=== PATIENT | female | born 1965 | race Caucasian/White ===

== ENCOUNTER → 2019-11-26 10:35 | Outpatient (BNVA) | payer MEDICARE, SELFPAY | PROVIDERS: Family Provider Family Medicine; PCP Nurse Practitioner; Visit Provider Nurse Practitioner | DX: E11.42 Type 2 diabetes mellitus with diabetic polyneuropathy (principal); Z23 Encounter for immunization; Z79.4 Long term (current) use of insulin; I25.10 Atherosclerotic heart disease of native coronary artery without angina pectoris; Z76.89 Persons encountering health services in other specified circumstances; K21.9 Gastro-esophageal reflux disease without esophagitis | CPT/HCPCS: 80061; 82044; 83036; 85025 ==

== ENCOUNTER → 2020-04-14 10:28 | Outpatient (BNVA) | payer MEDICARE, SELFPAY | PROVIDERS: Family Provider Family Medicine; PCP Nurse Practitioner; Visit Provider Family Medicine | DX: E11.42 Type 2 diabetes mellitus with diabetic polyneuropathy (principal); I25.10 Atherosclerotic heart disease of native coronary artery without angina pectoris; M14.672 Charcot's joint, left ankle and foot; J44.9 Chronic obstructive pulmonary disease, unspecified; G47.33 Obstructive sleep apnea (adult) (pediatric); I10 Essential (primary) hypertension; Z68.35 Body mass index [BMI] 35.0-35.9, adult; F17.211 Nicotine dependence, cigarettes, in remission; Z79.4 Long term (current) use of insulin | CPT/HCPCS: 83036; 84443 ==

== ENCOUNTER → 2020-06-29 11:58 | Outpatient (BNVA) | payer MEDICARE, SELFPAY | PROVIDERS: Family Provider Family Medicine; PCP Family Medicine; Visit Provider Family Medicine Adult Medicine | DX: E11.42 Type 2 diabetes mellitus with diabetic polyneuropathy (principal); N18.3 Chronic kidney disease, stage 3 (moderate); I10 Essential (primary) hypertension; E78.5 Hyperlipidemia, unspecified; R80.9 Proteinuria, unspecified; I25.10 Atherosclerotic heart disease of native coronary artery without angina pectoris; E66.9 Obesity, unspecified; Z79.4 Long term (current) use of insulin | CPT/HCPCS: 80053; 80061; 83036; 85025 ==

== ENCOUNTER 2020-08-10 17:06 | Emergency (ER) | payer MEDICARE, SELFPAY ==
[2020-08-10 17:21] VITALS: BP 174/100; PULSE 75; RESP 20; TEMP 36.8; O2SAT 100; BMI 31.8
--- NOTE | 2020-08-10 18:58 | ECG_ITS ---
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 Measurements Intervals [place] Rate: 76 P: 14 MI: 156 QRS: -28 QRSD: 86 T: 46 QT: 394 QTc: 445 Interpretive Statements SINUS RHYTHM BORDERLINE LEFT AXIS DEVIATION [QRS AXIS < -20] LOW QRS VOLTAGE IN PRECORDIAL LEADS [QRS DEFLECTION < 1.0 mV IN CHEST LEADS] PATTERN CONSISTENT WITH PULMONARY DISEASE MODERATE VOLTAGE CRITERIA FOR LVH, CONSIDER NORMAL VARIANT [MEETS CRITERIA IN ONE OF: R(aVL), S(V1), R(V5), R(V5/V6)+S(V1)] Compared to ECG 09/29/2017 00:35:48 Low QRS voltage now present Myocardial infarct finding no longer present Electronically Signed On 08-10-2020 19:28:27 HEMP FIBER TAKER OFF by Graham Farooq M.D. [id number] maldonado
--- NOTE | 2020-08-10 21:04 | PC.NURSE ---
Attempt at 18:50 to call pt to room, pt no longer in the waiting room. Attempt now to call pt, pt does not respond. No pt noted in parking lot or bathroom at this time.
== END 2020-08-10 21:06 ==
LOC: ER 17:12
PROVIDERS: Emergency Provider Family Medicine; PCP Family Medicine
DX: Z53.21 Procedure and treatment not carried out due to patient leaving prior to being seen by health care provider (principal)
CPT/HCPCS: 93005; 99281

== ENCOUNTER 2021-03-08 09:34 | Emergency (ER) | payer MEDICARE, SELFPAY ==
[2021-03-08 09:43] VITALS: BP 175/95; PULSE 72; RESP 18; TEMP 36.6; O2SAT 94; BMI 33.5
--- NOTE | 2021-03-08 09:46 | CT_ITS ---
WS: [id number] CT HEAD NONCONTRAST HISTORY: fall; struck head; unknown LOC TECHNIQUE: Contiguous axial imaging performed through the brain in 2.5 mm imaging. Bone and soft tiss ue windows. Sagittal and coronal reformats reviewed. All CT scans at [facility] use at le ast one of these dose optimization techniques: automated exposure control; mA and/or kV adjustment pe r patient size (includes targeted exams where dose is matched to clinical indication); or iterative r econstruction. DLP: 913.96 mGy.cm COMPARISON: 01/06/2017 No acute intracranial hemorrhage, midline shift or mass effect. Mild atrophy and mild chronic microvascular ischemic disease. Prior lacunar infarct in the LEFT basal ganglia. Ventricles: Normal size with no hydrocephalus. Paranasal sinuses: As visualized are clear. Mastoid air cells: Well pneumatized. Calvarium and scalp: Skull is intact with no soft tissue edema or swelling. CT/CT head wo con* [id number] IMPRESSION: 1. No acute intracranial hemorrhage or edema. 2. Stable noncontrast head CT since 01/06/2017.
--- NOTE | 2021-03-08 09:46 | W.ED.FALL ---
HPI - Fall General: Chief Complaint: Fall Stated Complaint: fall, head injury Time Seen by Provider: 03/08/21 09:37 Source: patient Mode of arrival: ambulatory Limitations: no limitations History of Present Illness: HPI Narrative: Patient is a 55-year-old female who presents to ED today for evaluation following a fall. Patient states just prior to arrival while in her bathroom she accidentally slipped and fell on a wet surface. She states she struck the posterior aspect of her scalp. She reports probable brief LOC stating she fell and then immediately woke up . She does complain of neck pain. C-collar placed immediately after my examination. She is alert and oriented x3. She has no other physical complaints or injuries at this time. Patient is on Plavix. MD complaint: fall Onset (ago): hour(s) Fall from: standing Fall witnessed: no Place fall occurred: home Loss of consciousness: Yes Length of LOC: second(s) Prolonged down time: no Symptoms prior to fall: none Context: tripped/slipped Location of injury: head Associated symptoms-after fall: Reports no associated symptoms, headache(s) and neck pain; Denies abdominal pain, chest pain, confusion, difficulty walking or vertigo Review of Systems Eyes: Denies: change in vision, blurry vision, photophobia, floaters or seeing flashes Card: Denies: chest pain Resp: Denies: dyspnea GI: Denies: abdominal pain, nausea or vomiting Musc: Reports: neck pain; Denies: back pain, extremity pain or joint pain Skin/Breast: Reports: other (no lacerations, abrasions, bruising) Neuro: Reports: headache(s); Denies: numbness in extremities, weakness in extremities, sensory changes, lack of coordination, difficulty walking, frequent falls, dizziness, vertigo, confusion, Slurred speech present, difficulty communicating thoughts or seizure-like activity [facility] ED PFSH: Medical History ASHD (arteriosclerotic heart disease) Stents placed Charcot's joint of left foot CKD (chronic kidney disease) stage 3, GFR 30-59 ml/min COPD (chronic obstructive pulmonary disease) GERD (gastroesophageal reflux disease) Hammer toes, bilateral Hyperlipidemia Hypertension Hypertension with albuminuria Obesity (BMI 35.0-39.9 without comorbidity) Onychodystrophy Onychomycosis PAD (peripheral artery disease) 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 Surgical History H/O tubal ligation Hx of cholecystectomy Hx of heart artery stent Family History Mother Diabetes Heart disease Denies family history of CAD (coronary artery disease) Clotting disorder Dementia Hyperlipidemia Psychiatric illness Chronic kidney disease (CKD) Suicide Anesthesia complication Bleeding disorder Family history of premature coronary artery disease Lung disease Cancer Hypertension Stroke Social History Smoking and tobacco status: former smoker Quit status (tobacco): has quit using tobacco Year quit tobacco: 9 years ago Alcohol intake: never Physical Exam Const: COMMON NORMALS: no acute distress, patient oriented x3, no limitations and alert NUTRITIONAL APPEARANCE: overweight ORIENTATION/CONSCIOUSNESS: Yes awake, Yes oriented to person, Yes oriented to place and Yes oriented to time HENMT: COMMON NORMALS: normocephalic, atraumatic, hearing grossly normal bilaterally, external ears normal, EAC's normal and TM's normal bilaterally HEAD & SCALP: normal to inspection, normocephalic and atraumatic HEAD IMAGES: 1. TTP; no hematoma, abrasions, or lacerations FACE & SINUS: normal facial exam EXTERNAL EAR: Yes external ears normal EXTERNAL AUDITORY CANAL: EAC's normal TYMPANIC MEMBRANE: TM's normal bilaterally Eye: COMMON NORMALS: Equal, round and reactive pupils present and EOMs intact bilaterally GENERAL EYE: appearance normal, both eyes and all related structures PUPIL: Yes Equal, round and reactive pupils present Neck/C-Spine: CERVICAL SPINE: Yes Cervical spine tenderness (mid c spine), No step off deformity, Yes Paracervical muscle tenderness right and No Paracervical spasm Resp: COMMON NORMALS: normal respiratory effort Back/Pelvis: COMMON NORMALS: thoracic and lumbar spine normal to inspection, no thoracic nor lumbar tenderness and thoraco-lumbar ROM normal Extremity: COMMON NORMALS: normal to inspection and full ROM GENERAL: Yes normal exam except as noted Neuro: KENDRICK COMA SCALE: document GCS findings Kendrick coma scale eye opening: Spontaneous Rainier coma scale verbal response: Orientated Kendrick coma scale motor response: Obey commands Kendrick coma scale total score: 15 COMMON NORMALS: patient oriented x3, CN's II-XII intact bilaterally, moves all extremities, no focal motor deficits and no sensory deficits noted SENSORIUM/ORIENTATION: Yes alert, Yes oriented to person, Yes oriented to place and Yes oriented to time Skin: COMMON NORMALS: no rashes or lesions noted GENERAL SKIN EXAM: no rashes or lesions noted TRAUMA: no lacerations or abrasions Course Vital Signs: Vital signs: Vital Signs Temperature 97.9 F 03/08/21 09:43 Pulse Rate 72 03/08/21 09:43 Respiratory Rate 18 03/08/21 09:43 Blood Pressure 175/95 03/08/21 09:43 Pulse Oximetry 94 03/08/21 09:43 MDM - Fall MDM Narrative: Medical decision making narrative: Head and cervical spine CTs normal. She is stable for DC at this time. Imaging Data^: CT Head: Radiologist's impression: [place] [address] CT Scan Report Signed Patient: Radha Henry Unit #: [id number] : 1965 Age/Sex: 55 / F ADM Date: 03/08/21 Loc: ER Room/Bed: Attending Dr: Ordering Provider/Ordering MD: Bridgette Hernandez Date of Service: 03/08/21 Procedure(s): CT head wo con* [id number] Accession Number(s): [id number] Report Number: [id number] WS: [id number] CT HEAD NONCONTRAST HISTORY: fall; struck head; unknown LOC TECHNIQUE: Contiguous axial imaging performed through the brain in 2.5 mm imaging. Bone and soft tissue windows. Sagittal and coronal reformats reviewed. All CT scans at [facility] use at least one of these dose optimization techniques: automated exposure control; mA and/or kV adjustment per patient size (includes targeted exams where dose is matched to clinical indication); or iterative reconstruction. DLP: 913.96 mGy.cm COMPARISON: 01/06/2017 No acute intracranial hemorrhage, midline shift or mass effect. Mild atrophy and mild chronic microvascular ischemic disease. Prior lacunar infarct in the LEFT basal ganglia. Ventricles: Normal size with no hydrocephalus. Paranasal sinuses: As visualized are clear. Mastoid air cells: Well pneumatized. Calvarium and scalp: Skull is intact with no soft tissue edema or swelling. CT/CT head wo con* [id number] IMPRESSION: 1. No acute intracranial hemorrhage or edema. 2. Stable noncontrast head CT since 01/06/2017. Dictated By: Camila Berman DO Signed By: Camila Berman DO Signed Date/Time: 03/08/21 1040 DD/ 1037 CT cervical : Radiologist's impression: [address] [place] [address] CT Scan Report Signed Patient: Radha Henry Unit #: [id number] : 1965 Age/Sex: 55 / F ADM Date: 03/08/21 Loc: ER Room/Bed: Attending Dr: Ordering Provider/Ordering MD: Bridgette Hernandez Date of Service: 03/08/21 Procedure(s): CT cervical spin wo con* [id number] Accession Number(s): [id number] Report Number: [id number] WS: [id number] CT CERVICAL SPINE HISTORY: fall, struck head, neck pain TECHNIQUE: Contiguous 2.5 mm axial imaging performed through the entire cervical spine. Sagittal and coronal reformats also performed. All CT scans at [facility] use at least one of these dose optimization techniques: automated exposure control; mA and/or kV adjustment per patient size (includes targeted exams where dose is matched to clinical indication); or iterative reconstruction. DLP: 697.12 mGy.cm COMPARISON: None available. Normal cervical alignment. Craniocervical junction, atlantodental interval and C1-C2 alignment is normal. Scattered calcified plaque in the vertebral arteries and intracranial carotid arteries. C2-C3: Normal. C3-C4: Normal. C4-C5: Normal. C5-C6: Normal. C6-C7: Normal. C7-T1: Normal. Soft tissues are normal. Lung apices are clear. CT/CT cervical spin wo con* [id number] IMPRESSION: No cervical spine fracture. Dictated By: Camila Berman DO Signed By: Camila Berman DO Signed Date/Time: 03/08/21 1042 DD/ 1040 Discharge Plan Discharge Patient Disposition: Home Clinical Impression: Minor closed head injury Fall from slipping Qualifiers: Encounter type: initial encounter Qualified Code(s): W01.0XXA - Fall on same level from slipping, tripping and stumbling without subsequent striking against object, initial encounter Condition: Stable Prescriptions: No Action albuterol sulfate [ProAir HFA] 90 mcg/actuation HFA aerosol inhaler 1 inh INHALATION QID PRN (Reason: Shortness Of Breath) RF: 0 (DME) Diabetic Shoes Qty: 1 RF: 0 (DME) 3 inserts for diabetic shoes See Rx Instructions .Route .MEDSUPPLY Qty: 1 RF: 0 clopidogrel 75 mg tablet 75 mg PO DAILY 30 Days Qty: 30 RF: 1 (DME) cpap mask and tubing See Rx Instructions .Route .MEDSUPPLY Qty: 1 RF: 0 (DME) glucometer See Rx Instructions .Route .MEDSUPPLY Qty: 1 RF: 0 aspirin 81 mg tablet,delayed release (DR/EC) 81 mg PO DAILY Qty: 90 RF: 3 atorvastatin 10 mg tablet 10 mg PO DAILY Qty: 90 RF: 3 Levemir FlexTouch U-100 Insuln 100 unit/mL (3 mL) insulin pen 50 unit SUBCUT DAILY 30 Days Qty: 15 RF: 3 losartan-hydrochlorothiazide 50-12.5 mg tablet 1 tab PO DAILY Qty: 30 RF: 1 cetirizine 10 mg capsule 10 mg PO DAILY Qty: 30 RF: 5 pantoprazole 20 mg tablet,delayed release (DR/EC) 20 mg PO DAILY 30 Days Qty: 30 RF: 5 Trulicity 0.75 mg/0.5 mL pen injector 0.75 mg SUBCUT Q7D RF: 0 Discharge Orders: Discharge ED (Routine); Ordered 03/08/21 Ordered By: Bridgette Hernandez Referrals: Cameron Frost MD [Primary Care Provider] - Patient Instructions: Minor Head Injury (ED) Coding Level of Care Code ED Supervisor [employer] for [employer] Fwd Exam Comprehensive
--- NOTE | 2021-03-08 09:51 | CT_ITS ---
WS: [id number] CT CERVICAL SPINE HISTORY: fall, struck head, neck pain TECHNIQUE: Contiguous 2.5 mm axial imaging performed through the entire cervical spine. Sagittal and coronal reformats also performed. All CT scans at [facility] use at least one of these do se optimization techniques: automated exposure control; mA and/or kV adjustment per patient size (inc ludes targeted exams where dose is matched to clinical indication); or iterative reconstruction. DLP: 697.12 mGy.cm COMPARISON: None available. Normal cervical alignment. Craniocervical junction, atlantodental interval and C1-C2 alignment is nor mal. Scattered calcified plaque in the vertebral arteries and intracranial carotid arteries. C2-C3: Normal. C3-C4: Normal. C4-C5: Normal. C5-C6: Normal. C6-C7: Normal. C7-T1: Normal. Soft tissues are normal. Lung apices are clear. CT/CT cervical spin wo con* [id number] IMPRESSION: No cervical spine fracture.
== END 2021-03-08 11:20 | disposition home or self-care (01) ==
PROVIDERS: Emergency Provider Physician Assistant; PCP Family Medicine Adult Medicine
DX: S09.8XXA Other specified injuries of head, initial encounter (principal); Z79.02 Long term (current) use of antithrombotics/antiplatelets; Z79.82 Long term (current) use of aspirin; Z79.4 Long term (current) use of insulin; I12.9 Hypertensive chronic kidney disease with stage 1 through stage 4 chronic kidney disease, or unspecified chronic kidney disease; E11.22 Type 2 diabetes mellitus with diabetic chronic kidney disease; N18.30 Chronic kidney disease, stage 3 unspecified; J44.9 Chronic obstructive pulmonary disease, unspecified; E78.5 Hyperlipidemia, unspecified; Z87.891 Personal history of nicotine dependence; W01.0XXA Fall on same level from slipping, tripping and stumbling without subsequent striking against object, initial encounter
CPT/HCPCS: 70450; 72125; 99282

== ENCOUNTER 2021-04-28 17:53 | Emergency (ER) | payer MEDICARE, SELFPAY ==
--- NOTE | 2021-04-28 18:09 | XRR_ITS ---
PROCEDURE INFORMATION: Exam: XR Chest Exam date and time: 04/28/2021 6:09 PM Age: 55 years old Clinical indication: Fever and shortness of breath; Prior surgery; Surgery type: Stents; Additional info: Fever, SOB, central chest pain TECHNIQUE: Imaging protocol: XR of the chest. Views: 1 view. COMPARISON: CR Chest 1 [place] [id number] 01/29/2019 10:46 PM FINDINGS: Lungs: Chronic interstitial scarring in both lungs. No consolidation. Focal airspace opacity in the central right lung appears new. Pleural spaces: Unremarkable. No pleural effusion. No pneumothorax. Heart/Mediastinum: Unremarkable. No cardiomegaly. Bones/joints: Unremarkable. XR/XR chest 1V portable [id number] IMPRESSION: 1. New focal airspace opacity in the right mid lung is most likely pneumonia. Radiographic follow-up to document resolution recommended. 2. Chronic interstitial scarring.
[2021-04-28 18:17] VITALS: BP 139/85; PULSE 79; RESP 18; TEMP 38.3; O2SAT 94
[2021-04-28 21:55] VITALS: BP 174/83; PULSE 87; RESP 22; O2SAT 98
[2021-04-28 22:03] VITALS: PULSE 76; RESP 20; O2SAT 95
--- NOTE | 2021-04-28 22:06 | ECG_ITS ---
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
--- NOTE | 2021-04-28 22:09 | ED_ITS ---
HPI - General Adult General: Chief complaint: General Medical Stated complaint: COVID SYMPTOMATIC:SOB,FEVER,BODY ACHES (-) TUES Time Seen by Provider: 04/28/21 21:58 Source: patient Mode of arrival: ambulatory Limitations: no limitations History of Present Illness: HPI narrative: 55-year-old female states that over the last 2 days she been having fever along with cough and chest pain. States she is also been having shortness of breath. States that she tested negative for Covid 2 days ago. She denies any worsening improving factors. Patient's pulse ox is 95% here on room air. States her chest pain is sharp in nature. Associated symptoms: Reports chest pain and dyspnea; Deny headache(s), nausea, rash or vomiting Review of Systems Const: Reports: fever(s), chills and body aches Eyes: Denies: blurry vision or eye discomfort ENMT: Denies: throat pain or dental pain Card: Reports: chest pain Resp: Reports: dyspnea and non-productive cough GI: Denies: abdominal pain, nausea, vomiting or diarrhea : Denies: dysuria Musc: Denies: neck pain or back pain Skin/Breast: Denies: rash Neuro: Denies: headache(s) Psych: Denies: depression J Luis/Lymph: Denies: easy bruising All/Imm: Denies: urticaria PFSH ED PFSH: Medical History ASHD (arteriosclerotic heart disease) Stents placed Charcot's joint of left foot CKD (chronic kidney disease) stage 3, GFR 30-59 ml/min COPD (chronic obstructive pulmonary disease) GERD (gastroesophageal reflux disease) Hammer toes, bilateral Hyperlipidemia Hypertension Hypertension with albuminuria Obesity (BMI 35.0-39.9 without comorbidity) Onychodystrophy Onychomycosis PAD (peripheral artery disease) 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 Surgical History H/O tubal ligation Hx of cholecystectomy Hx of heart artery stent Family History Mother Diabetes Heart disease Denies family history of CAD (coronary artery disease) Clotting disorder Dementia Hyperlipidemia Psychiatric illness Chronic kidney disease (CKD) Suicide Anesthesia complication Bleeding disorder Family history of premature coronary artery disease Lung disease Cancer Hypertension Stroke Social History Smoking and tobacco status: former smoker Quit status (tobacco): has quit using tobacco Year quit tobacco: 9 years ago Alcohol intake: never Physical Exam Const: COMMON NORMALS: no acute distress, patient oriented x3 and healthy appearing HENMT: COMMON NORMALS: normocephalic and atraumatic HEAD & SCALP: normocephalic and atraumatic Eye: COMMON NORMALS: Equal, round and reactive pupils present and EOMs intact bilaterally PUPIL: Yes Equal, round and reactive pupils present Neck/C-Spine: COMMON NORMALS: full ROM and supple Chest: COMMONS NORMALS: normal inspection of the chest and normal palpation of entire chest wall Resp: COMMON NORMALS: normal respiratory effort, No retractions, No use of accessory muscles and clear to auscultation bilaterally AUSCULTATION: clear to auscultation bilaterally Cardio: COMMON NORMALS: regular rate, regular rhythm and No murmurs present (Cardio) RATE: regular rate RHYTHM: regular rhythm GI: COMMON NORMALS: Normal to inspection, nondistended, normoactive bowel sounds present, Soft to palpation, non-tender and no masses PALPATION: Yes Soft to palpation Extremity: COMMON NORMALS: normal to inspection and full ROM Neuro: COMMON NORMALS: patient oriented x3, moves all extremities and no focal motor deficits Psych: COMMON NORMALS: mental status grossly normal, Normal thought process present and cooperative THOUGHT PROCESS: Normal thought process present Skin: COMMON NORMALS: no rashes or lesions noted and no wounds GENERAL SKIN EXAM: no rashes or lesions noted Course Vital Signs: Vital signs: Vital Signs Temperature 98.2 F 04/29/21 01:38 Pulse Rate 58 L 04/29/21 01:38 Respiratory Rate 18 04/29/21 01:38 Blood Pressure 144/62 04/29/21 01:38 Pulse Oximetry 95 04/29/21 01:38 MDM - General Adult MDM Narrative: Medical decision making narrative: Patient presents with cough fever and some shortness of breath. She has been in no distress here not requiring any oxygen. X-ray did show a right upper lobe pneumonia. I feel she is stable for treatment at home at this time. We will start her on doxycycline. She is to follow-up with PCP in 3 to 5 days and return to ER if she has any worsening. She understands and agrees to this plan. Lab Data: Labs: Lab Results 04/28/21 04/28/21 04/28/21 Range/Units 21:58 22:29 22:29 WBC 6.7 (4.0-10.0) 10^3/ uL RBC 4.33 (4.1-5.3) 10^6/u L Hgb 12.6 (11.5-15.3) g/dL Hct 39.4 (37.0-47.0) % MCV 91.0 (81-99) fL MCH 29.1 (28.0-34.0) pg MCHC 32.0 (30.0-36.0) g/dL RDW 12.4 (12.1-15.1) % Plt Count 169 (130-400) 10^3/c mm MPV 11.3 H (7.4-10.4) fL Neut % (Auto) 63.4 % Lymph % (Auto) 22.3 % Pershing % (Auto) 13.1 % Eos % (Auto) 0.4 % Baso % (Auto) 0.4 % Neut # (Auto) 4.26 (1.8-7.7) 10^3/u L Lymph # (Auto) 1.5 (0.8-4.8) 10^3/u L Pershing # (Auto) 0.9 (0.2-0.9) 10^3/u L Eos # (Auto) 0.0 (0.0-0.8) 10^3/u L Baso # (Auto) 0.0 (0.0-0.1) 10^3/u L Nucleated RBC % (a uto) 0 % Nucleated RBCs # 0.0 /100WBC D-Dimer 1.31 H (0-0.59) ug/mIFE U Sodium (136-145) mmol/L Potassium (3.5-5.1) mmol/L Chloride (98-107) mmol/L Carbon Dioxide (22-29) mmol/L Anion Gap (5-19) BUN (6-20) mg/dL Creatinine (0.5-0.9) mg/dL GFR Calculation (90-130) mL/min Glucose (65-115) mg/dL Calculated Osmolal ity (285-295) mOsm/k g Calcium (8.5-10.5) mg/dL Total Bilirubin (0.15-1.2) mg/dL AST (0-32) U/L ALT (0-33) U/L Alkaline Phosphata se (35-105) IU/L Troponin T Baselin e (0-10) ng/L Troponin T 120 Min pala (0-10) ng/L Delta Troponin T (0-10) ABS# NT-Pro-B Natriuret Pep (0-125) pg/mL Total Protein (6.6-8.7) g/dL Albumin (3.5-5.2) g/dL Globulin (1.3-4.6) g/dL SARS-CoV-2 Ag (Rap id) Negative (Negative) 04/28/21 04/28/21 04/29/21 Range/Units 22:29 22:29 00:30 WBC (4.0-10.0) 10^3/ uL RBC (4.1-5.3) 10^6/u L Hgb (11.5-15.3) g/dL Hct (37.0-47.0) % MCV (81-99) fL MCH (28.0-34.0) pg MCHC (30.0-36.0) g/dL RDW (12.1-15.1) % Plt Count (130-400) 10^3/c mm MPV (7.4-10.4) fL Neut % (Auto) % Lymph % (Auto) % Pershing % (Auto) % Eos % (Auto) % Baso % (Auto) % Neut # (Auto) (1.8-7.7) 10^3/u L Lymph # (Auto) (0.8-4.8) 10^3/u L Pershing # (Auto) (0.2-0.9) 10^3/u L Eos # (Auto) (0.0-0.8) 10^3/u L Baso # (Auto) (0.0-0.1) 10^3/u L Nucleated RBC % (a uto) % Nucleated RBCs # /100WBC D-Dimer (0-0.59) ug/mIFE U Sodium 130 L (136-145) mmol/L Potassium 4.7 (3.5-5.1) mmol/L Chloride 95 L (98-107) mmol/L Carbon Dioxide 23 (22-29) mmol/L Anion Gap 16.7 (5-19) BUN 18 (6-20) mg/dL Creatinine 0.9 (0.5-0.9) mg/dL GFR Calculation 65.0 L (90-130) mL/min Glucose 277 H (65-115) mg/dL Calculated Osmolal ity 282 L (285-295) mOsm/k g Calcium 8.0 L (8.5-10.5) mg/dL Total Bilirubin 0.4 (0.15-1.2) mg/dL AST 19 (0-32) U/L ALT 16 (0-33) U/L Alkaline Phosphata se 91 (35-105) IU/L Troponin T Baselin e 76 H (0-10) ng/L Troponin T 120 Min pala 66.90 H (0-10) ng/L Delta Troponin T -9.10 L (0-10) ABS# NT-Pro-B Natriuret Pep 6474 H (0-125) pg/mL Total Protein 6.5 L (6.6-8.7) g/dL Albumin 3.6 (3.5-5.2) g/dL Globulin 2.9 (1.3-4.6) g/dL SARS-CoV-2 Ag (Rap id) (Negative) Imaging Data^: CXR: Attestation: I personally reviewed and interpreted this imaging study as follows: Radiologist's impression: [address] [address] [address] Scan Report Signed Patient: Radha Henry Unit #: [id number] : 1965 Age/Sex: 55 / F ADM Date: 04/28/21 Loc: ER Room/Bed: Attending Dr: Ordering Provider/Ordering MD: Kimmie Sahu MD Date of Service: 04/28/21 Procedure(s): CT angio chest PE protcl [id number] Accession Number(s): [id number] Report Number: [id number] PROCEDURE INFORMATION: Exam: CTA Chest With Contrast Exam date and time: 04/28/2021 11:01 PM Age: 55 years old Clinical indication: Abnormal findings; Abnormal diagnostic tests; Elevated d-dimer; Shortness of breath; Prior surgery; Surgery type: Cardiac stents. Gb. ; Patient HX: SOB elevated ddimer TECHNIQUE: Imaging protocol: Computed tomographic angiography of the chest with contrast. 3D rendering (Not supervised by radiologist): MIP and/or 3D reconstructed images were created by the technologist. Radiation optimization: All CT scans at this facility use at least one of these dose optimization techniques: automated exposure control; mA and/or kV adjustment per patient size (includes targeted exams where dose is matched to clinical indication); or iterative reconstruction. Contrast material: OMNI 350; Contrast volume: 95 ml; Contrast route: INTRAVENOUS (IV); COMPARISON: CTA Chest-Pulmonary Emb [id number] 07/02/2018 2:21 AM RADIATION DOSE METRICS: Total DLP (mGy-cm): 545.51 FINDINGS: Pulmonary arteries: Normal. No pulmonary emboli. Aorta: Unremarkable. No aortic aneurysm. No aortic dissection. Lungs: 3.5 cm focal airspace consolidation in the posterior right upper lobe. Diffuse interstitial fibrosis with honeycombing in both lungs. Pleural spaces: Unremarkable. No pneumothorax. No pleural effusion. Heart: Coronary artery calcifications. Mild cardiomegaly. Mediastinal space: Hiatal hernia. Lymph nodes: Prominent mediastinal and hilar lymph nodes are most likely reactive. Gallbladder and bile ducts: Cholecystectomy. Bones/joints: Unremarkable. No acute fracture. Soft tissues: Unremarkable. CT/CT angio chest PE protcl [id number] IMPRESSION: 1. No evidence for pulmonary embolus. 2. Focal airspace opacity in the right upper lobe most likely represents pneumonia. Radiation Dose CTDIVOL = (mGy): DLP = 545.51 (mGy-cm) Dictated By: Jaspal Waters Signed By: Jaspal Waters Signed Date/Time: 04/28/212347 DD/ 45 EKG Data^: EKG 1: Attestation: I personally reviewed and interpreted this EKG as follows: EKG interpretation date: 04/28/21 EKG interpretation time: 22:48 Interpretation: nsr hr [address] or t wave abnormalities qrs 89 qtc 404 Computer generated interpretation: Chest X-Ray 04/28/21 18:09 IMPRESSION: 1. New focal airspace opacity in the right mid lung is most likely pneumonia. Radiographic follow-up to document resolution recommended. 2. Chronic interstitial scarring. Chest CTA 04/28/21 23:01 IMPRESSION: 1. No evidence for pulmonary embolus. 2. Focal airspace opacity in the right upper lobe most likely represents pneumonia. Radiation Dose CTDIVOL = (mGy): DLP = 545.51 (mGy-cm) Discharge Plan Discharge Patient Disposition: Home Clinical Impression: Pneumonia Qualifiers: Pneumonia type: due to unspecified organism Laterality: right Lung location: upper lobe of lung Qualified Code(s): J18.9 - Pneumonia, unspecified organism Condition: Stable Prescriptions: New doxycycline hyclate 100 mg tablet 100 mg PO BID 7 Days Qty: 14 RF: 0 No Action albuterol sulfate [ProAir HFA] 90 mcg/actuation HFA aerosol inhaler 1 inh INHALATION QID PRN (Reason: Shortness Of Breath) RF: 0 (DME) Diabetic Shoes Qty: 1 RF: 0 (DME) 3 inserts for diabetic shoes See Rx Instructions .Route .MEDSUPPLY Qty: 1 RF: 0 clopidogrel 75 mg tablet 75 mg PO DAILY 30 Days Qty: 30 RF: 1 (DME) cpap mask and tubing See Rx Instructions .Route .MEDSUPPLY Qty: 1 RF: 0 (DME) glucometer See Rx Instructions .Route .MEDSUPPLY Qty: 1 RF: 0 aspirin 81 mg tablet,delayed release (DR/EC) 81 mg PO DAILY Qty: 90 RF: 3 atorvastatin 10 mg tablet 10 mg PO DAILY Qty: 90 RF: 3 Levemir FlexTouch U-100 Insuln 100 unit/mL (3 mL) insulin pen 50 unit SUBCUT DAILY 30 Days Qty: 15 RF: 3 cetirizine 10 mg capsule 10 mg PO DAILY Qty: 30 RF: 5 pantoprazole 20 mg tablet,delayed release (DR/EC) 20 mg PO DAILY 30 Days Qty: 30 RF: 5 losartan-hydrochlorothiazide 50-12.5 mg tablet 1 tab PO DAILY Qty: 30 RF: 0 Trulicity 0.75 mg/0.5 mL pen injector 0.75 mg SUBCUT Q7D RF: 0 Discharge Orders: Discharge ED (Routine); Ordered 04/29/21 Ordered By: Kimmie Sahu Referrals: Cameron Frost MD [Primary Care Provider] - 1-3 days Discharge Diet: Advance as tolerated Discharge Activity: Resume usual activity Patient Instructions: Bacterial Pneumonia (ED) Coding Level of Care Code ED Amusement Ride Operator for Chg Fwd Exam Comprehensive
[2021-04-28 22:23] LABS: SARS Covid-2 Antigen Negative (Negative)
[2021-04-28] MEDS: acetaminophen 325 mg Tablet 650 MG PO (22:27)
[2021-04-28] MEDS: sodium chloride 0.9% 1,000 ML 999 ML IV (22:28)
[2021-04-28] MEDS: ondansetron 2 mg/ML SDV 2 mL 4 MG IVP (22:28)
[2021-04-28 22:34] LABS: Basophils % 0.4 %; Eosinophils % 0.4 %; Hematocrit 39.4 % (37.0-47.0); Hemoglobin 12.6 g/dL (11.5-15.3); Lymphocytes # 1.5 10^3/uL (0.8-4.8); Lymphocytes % 22.3 %; Mean Corpuscular Hemoglobin 29.1 pg (28.0-34.0); Mean Platelet Volume 11.3 fL (7.4-10.4); Monocytes # 0.9 10^3/uL (0.2-0.9); Monocytes % 13.1 %; Neutrophils # 4.26 10^3/uL (1.8-7.7); Neutrophils % 63.4 %; Nucleated Red Blood Cells % 0 %; Platelet Count 169 10^3/cmm (130-400); Red Blood Count 4.33 10^6/uL (4.1-5.3); Red Cell Distribution Width 12.4 % (12.1-15.1); White Blood Count 6.7 10^3/uL (4.0-10.0)
[2021-04-28 22:52] LABS: Troponin(5th) Baseline 76 ng/L (0-10)
[2021-04-28 22:58] LABS: D Dimer 1.31 ug/mIFEU (0-0.59)
[2021-04-28 22:59] LABS: Alanine Aminotransferase 16 U/L (0-33); Albumin Level 3.6 g/dL (3.5-5.2); Alkaline Phosphatase 91 IU/L (35-105); Aspartate Amino Transferase 19 U/L (0-32); Blood Urea Nitrogen 18 mg/dL (6-20); Carbon Dioxide 23 mmol/L (22-29); Chloride 95 mmol/L (98-107); Globulin 2.9 g/dL (1.3-4.6); Glucose 277 mg/dL (65-115); NT Pro B Type Natriuretic Pept 6474 pg/mL (0-125); Osmolality Calculated 282 mOsm/kg (285-295); Sodium 130 mmol/L (136-145); Total Bilirubin 0.4 mg/dL (0.15-1.2); Total Protein 6.5 g/dL (6.6-8.7)
--- NOTE | 2021-04-28 23:01 | CTR_ITS ---
PROCEDURE INFORMATION: Exam: CTA Chest With Contrast Exam date and time: 04/28/2021 11:01 PM Age: 55 years old Clinical indication: Abnormal findings; Abnormal diagnostic tests; Elevated d-dimer; Shortness of breath; Prior surgery; Surgery type: Cardiac stents. Gb. ; Patient HX: SOB elevated ddimer TECHNIQUE: Imaging protocol: Computed tomographic angiography of the chest with contrast. 3D rendering (Not supervised by radiologist): MIP and/or 3D reconstructed images were created by the technologist. Radiation optimization: All CT scans at this facility use at least one of these dose optimization techniques: automated exposure control; mA and/or kV adjustment per patient size (includes targeted exams where dose is matched to clinical indication); or iterative reconstruction. Contrast material: OMNI 350; Contrast volume: 95 ml; Contrast route: INTRAVENOUS (IV); COMPARISON: CTA Chest-Pulmonary Emb [id number] 07/02/2018 2:21 AM RADIATION DOSE METRICS: Total DLP (mGy-cm): 545.51 FINDINGS: Pulmonary arteries: Normal. No pulmonary emboli. Aorta: Unremarkable. No aortic aneurysm. No aortic dissection. Lungs: 3.5 cm focal airspace consolidation in the posterior right upper lobe. Diffuse interstitial fibrosis with honeycombing in both lungs. Pleural spaces: Unremarkable. No pneumothorax. No pleural effusion. Heart: Coronary artery calcifications. Mild cardiomegaly. Mediastinal space: Hiatal hernia. Lymph nodes: Prominent mediastinal and hilar lymph nodes are most likely reactive. Gallbladder and bile ducts: Cholecystectomy. Bones/joints: Unremarkable. No acute fracture. Soft tissues: Unremarkable. CT/CT angio chest PE protcl [id number] IMPRESSION: 1. No evidence for pulmonary embolus. 2. Focal airspace opacity in the right upper lobe most likely represents pneumonia. Radiation Dose CTDIVOL = (mGy): DLP = 545.51 (mGy-cm)
[2021-04-28 23:05] LABS: Anion Gap 16.7 (5-19); Potassium 4.7 mmol/L (3.5-5.1)
[2021-04-28] MEDS: iohexol 350 mg/mL 100 mL Btl IV (23:13)
--- NOTE | 2021-04-29 00:06 | ECG_ITS ---
[facility] Test Date: 2021-04-29 Pat Name: Radha Henry Department: Room: Gender: Female Senior Network Architect: : 1965 Requested By: Kimmie Sahu Order Number: [id number] Reading MD: SHAILESH VAZ Measurements Intervals [place] Rate: 66 P: 24 UT: 159 QRS: -23 QRSD: 95 T: 22 QT: 384 QTc: 403 Interpretive Statements SINUS RHYTHM BORDERLINE LEFT AXIS DEVIATION [QRS AXIS < -20] NONSPECIFIC ST & T-WAVE ABNORMALITY Compared to ECG 04/28/2021 22:48:41 T-wave abnormality now present ST (T wave) deviation no longer present Electronically Signed On 04-30-2021 20:33:08 CDT by SHAILESH VAZ [id number]
[2021-04-29] MEDS: doxycycline 100 mg Tablet PO (01:36)
[2021-04-29 01:38] VITALS: BP 144/62; PULSE 58; RESP 18; TEMP 36.8; O2SAT 95
== END 2021-04-29 01:37 | disposition home or self-care (01) ==
PROVIDERS: Emergency Provider Emergency Medicine; PCP Family Medicine Adult Medicine
DX: J18.9 Pneumonia, unspecified organism (principal); I25.10 Atherosclerotic heart disease of native coronary artery without angina pectoris; I12.9 Hypertensive chronic kidney disease with stage 1 through stage 4 chronic kidney disease, or unspecified chronic kidney disease; N18.30 Chronic kidney disease, stage 3 unspecified; J44.9 Chronic obstructive pulmonary disease, unspecified; E78.5 Hyperlipidemia, unspecified; E66.9 Obesity, unspecified; E11.22 Type 2 diabetes mellitus with diabetic chronic kidney disease; E11.42 Type 2 diabetes mellitus with diabetic polyneuropathy; Z79.82 Long term (current) use of aspirin; Z79.899 Other long term (current) drug therapy; Z87.891 Personal history of nicotine dependence; Z95.5 Presence of coronary angioplasty implant and graft
CPT/HCPCS: 71045; 71275; 80053; 83880; 84484; 85025; 85378; 87040; 87426; 93005; 96361; 96374; 99284; J2405; J7030; Q9967

== ENCOUNTER → 2021-05-02 08:01 | Outpatient (BNVA) | payer MEDICARE, SELFPAY | PROVIDERS: PCP Family Medicine Adult Medicine; Visit Provider Family Medicine Adult Medicine | DX: Z20.822 Contact with and (suspected) exposure to COVID-19 (principal); B34.9 Viral infection, unspecified; J18.9 Pneumonia, unspecified organism | CPT/HCPCS: 87635 ==

== ENCOUNTER 2021-05-09 11:07 | Emergency (ER) | payer MEDICARE, SELFPAY ==
[2021-05-09 11:42] VITALS: BP 129/72; PULSE 72; RESP 25; TEMP 36.6; O2SAT 91
--- NOTE | 2021-05-09 11:59 | XRR_ITS ---
PROCEDURE INFORMATION: Exam: XR Chest Exam date and time: 05/09/2021 11:59 AM Age: 55 years old Clinical indication: Condition or disease; Other: Covid TECHNIQUE: Imaging protocol: XR of the chest. Views: 1 view. COMPARISON: CR (CHEST, ) 04/28/2021 9:46 PM FINDINGS: Lungs: Unremarkable. No consolidation. Pleural spaces: Unremarkable. No pleural effusion. No pneumothorax. Heart/Mediastinum: Unremarkable. No cardiomegaly. Bones/joints: Unremarkable. XR/XR chest 1V portable [id number] IMPRESSION: No acute findings.
[2021-05-09 13:54] LABS: Basophils % 0.1 %; Eosinophils % 0.1 %; Hematocrit 42.8 % (37.0-47.0); Hemoglobin 13.7 g/dL (11.5-15.3); Lymphocytes % 7.1 %; Mean Corpuscular Hemoglobin 28.2 pg (28.0-34.0); Mean Corpuscular Volume 88.2 fL (81-99); Mean Platelet Volume 11.5 fL (7.4-10.4); Monocytes % 6.9 %; Neutrophils # 12.23 10^3/uL (1.8-7.7); Neutrophils % 85.5 %; Nucleated Red Blood Cells % 0 %; Platelet Count 329 10^3/cmm (130-400); Red Blood Count 4.85 10^6/uL (4.1-5.3); Red Cell Distribution Width 12.1 % (12.1-15.1); White Blood Count 14.3 10^3/uL (4.0-10.0)
[2021-05-09 14:16] LABS: Lactic Sepsis W/Reflex 1.1 mmol/L (0.5-2.2)
[2021-05-09 14:18] LABS: Alanine Aminotransferase 16 U/L (0-33); Albumin Level 3.2 g/dL (3.5-5.2); Alkaline Phosphatase 86 IU/L (35-105); Aspartate Amino Transferase 16 U/L (0-32); Blood Urea Nitrogen 46 mg/dL (6-20); C Reactive Protein 14.4 mg/L (0.0-4.9); Calcium 8.6 mg/dL (8.5-10.5); Carbon Dioxide 25 mmol/L (22-29); Chloride 90 mmol/L (98-107); Globulin 3.3 g/dL (1.3-4.6); Glomerular Filtration Rate 57.6 mL/min (90-130); Osmolality Calculated 301 mOsm/kg (285-295); Sodium 128 mmol/L (136-145); Total Bilirubin 0.5 mg/dL (0.15-1.2); Total Protein 6.5 g/dL (6.6-8.7)
[2021-05-09 14:25] LABS: Procalcitonin 0.16 ng/mL (0-0.5)
[2021-05-09 14:29] LABS: Anion Gap 18.7 (5-19); Potassium 5.7 mmol/L (3.5-5.1)
--- NOTE | 2021-05-09 14:30 | ECG_ITS ---
[facility] Test Date: 2021-05-09 Pat Name: Radha Henry Department: Room: Gender: Female Water Resource Project Manager: : 1965 Requested By: Gatito Martinez Order Number: [id number] Go MD: Shmuel Gill M.D. Measurements Intervals [place] Rate: 61 P: 32 W[place]: 137 QRS: -19 QRSD: 94 T: 30 QT: 435 QTc: 441 Interpretive Statements SINUS RHYTHM LEFT VENTRICULAR HYPERTROPHY AND ST-T CHANGE [VOLTAGE CRITERIA PLUS ST/T ABNORMALITY] Compared to ECG 04/29/2021 00:16:03 Left ventricular hypertrophy now present ST (T wave) deviation now present T-wave abnormality no longer present Electronically Signed On 05-09-2021 17:27:38 CDT by Shmuel Gill M.D. [id number]
[2021-05-09 14:31] LABS: Glucose 508 mg/dL (65-115)
[2021-05-09 14:54] LABS: Troponin(5th) Baseline 41 ng/L (0-10)
[2021-05-09 15:57] LABS: Ketone (Acetest) Serum Negative (Negative)
--- NOTE | 2021-05-09 16:18 | ECG_ITS ---
[facility] Test Date: 2021-05-09 Pat Name: Radha Henry Department: Room: Gender: Female Crisis Manager: : 1965 Requested By: Gatito Martinez Order Number: [id number] Go MD: Shmuel Gill M.D. Measurements Intervals [place] Rate: 71 P: 36 GA: 147 QRS: -18 QRSD: 107 T: 23 QT: 425 QTc: 462 Interpretive Statements SINUS RHYTHM LEFT VENTRICULAR HYPERTROPHY AND ST-T CHANGE [VOLTAGE CRITERIA PLUS ST/T ABNORMALITY] Compared to ECG 05/09/2021 13:54:44 No significant changes Electronically Signed On 05-09-2021 23:48:51 CDT by Shmuel Gill M.D. [email or web address] countyiMOSPHEREmercy health [id number]
[2021-05-09 17:11] VITALS: BP 109/65; PULSE 65; RESP 24; TEMP 36.6; O2SAT 100
--- NOTE | 2021-05-09 17:18 | W.ED.SOB ---
HPI - SOB/Dyspnea General: Chief Complaint: Shortness of Breath/Dyspnea Stated Complaint: SOB Time Seen by Provider: 05/09/21 17:14 History of Present Illness: HPI Narrative: Ms. Henry is a 55-year-old lady with a significant past medical history of obesity, COPD, CKD, diabetes, peripheral arterial disease who presents to the emergency department due to respiratory symptoms. She reports symptom onset was approximately 3 weeks ago when she was initially treated for bacterial pneumonia after testing negative for Covid. For about 1 week she felt minimal improvement however has subsequently worsened. She subsequently tested positive for Covid. She can endorses continued generalized malaise, weakness, fatigue, shortness of breath, cough. Overall the symptoms are moderate to severe intensity. Her symptoms are worse with exertion. She has tried home inhalers with mild relief. She was started on a course of steroids which she has been taking and has not provided significant relief. She has noted increased difficulty with her breathing though has not had increased hunger, thirst, or urine output. No other specific exacerbating, alleviating, or provoking factors identified. Review of Systems General: Reports: 10 or more systems reviewed and unremarkable except in HPI and below Narrative: CONSTITUTIONAL: Positive for fever, fatigue, weakness EYES - denies pain, denies loss of vision EARS - denies ear issues. NOSE - denies congestion or rhinorrhea. THROAT - denies sore throat or difficulty swallowing. CARDIOVASCULAR - denies chest pain and palpitations RESPIRATORY -positive for shortness of breath and cough GASTROINTESTINAL - denies abdominal pain, no nausea vomiting, no changes in bowel habits GENITOURINARY - denies dysuria or urinary frequency MUSCULOSKELETAL- denies deformity or pain SKIN - denies rashes or new changed skin lesions NEUROLOGIC - denies focal weakness or sensory changes HEMATOLOGIC/LYMPHATIC - denies easy bruising or lymphadenopathy. [facility] ED PFSH: Medical History ASHD (arteriosclerotic heart disease) Stents placed Charcot's joint of left foot CKD (chronic kidney disease) stage 3, GFR 30-59 ml/min COPD (chronic obstructive pulmonary disease) GERD (gastroesophageal reflux disease) Hammer toes, bilateral Hyperlipidemia Hypertension Hypertension with albuminuria Lab test positive for detection of COVID-19 virus Obesity (BMI 35.0-39.9 without comorbidity) Onychodystrophy Onychomycosis PAD (peripheral artery disease) 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 Surgical History H/O tubal ligation Hx of cholecystectomy Hx of heart artery stent Family History Mother Diabetes Heart disease Denies family history of CAD (coronary artery disease) Clotting disorder Dementia Hyperlipidemia Psychiatric illness Chronic kidney disease (CKD) Suicide Anesthesia complication Bleeding disorder Family history of premature coronary artery disease Lung disease Cancer Hypertension Stroke Social History Quit status (tobacco): has quit using tobacco Year quit tobacco: 9 years ago Alcohol intake: never Physical Exam Narrative: EXAM NARRATIVE: GENERAL/CONSTITUTIONAL -somewhat ill-appearing. No acute distress. Mildly increased respiratory effort Eyes - PERRL, no conjunctival injection ENMT - Atraumatic external nose and ears. Moist mucous membranes NECK - supple. trachea midline CARDIOVASCULAR - regular rate and rhythm. Peripheral pulses 2+ and equal RESPIRATORY -coarse breath sounds throughout. Transmitted upper airway noises. No retractions or accessory muscle use. ABDOMEN/GI - Nontender/Nondistended. No tenderness to percussion or evidence of peritonitis MSK - Extremities without obvious deformity or tenderness to palpation SKIN - Warm, Dry NEURO - alert and appropriately oriented. strength and sensation intact. Moves all extremities equally. PSYCH - Appropriate mood and affect Course ED course: - Patient was seen and evaluated by me at bedside - Patient placed on cardiac monitors, IV access obtained - Initial evaluation notable for mildly ill appearance, no acute distress. - Labs and imaging obtained and reviewed - Fluids, and insulin given - Labs notable for mild leukocytosis. Hyperglycemia without evidence of DKA given normal serum ketones. - Imaging notable for overall the patient's chest x-ray is underwhelming given the degree of patient's respiratory status. Therefore CTA ordered. CTA negative for pulmonary embolism -Patient did have some improvement with breathing treatment - Upon serial reexamination after treatment the patient was improved. - Based on patient history, evaluation, labs, and imaging as interpreted the most likely cause of the patient's condition is viral in nature. She was discharged on home oxygen and did report improvement and oxygen - The results of ED evaluation were discussed with the patient including prescriptions and/or symptomatic cares including appropriate and responsible use, followup plan, and return precautions. The patient verbalized understanding and felt safe for discharge. - Patient discharged in satisfactory condition. Vital Signs: Vital signs: Vital Signs Temperature 97.9 F 05/09/21 17:11 Pulse Rate 116 H 05/09/21 23:12 Respiratory Rate 26 H 05/09/21 23:12 Blood Pressure 106/68 05/09/21 23:12 Pulse Oximetry 96 05/09/21 23:12 MDM - SOB/Dyspnea Medical Records: Attestation: I reviewed the patient's medical records. Lab Data: Attestation: I reviewed the patient's lab results. Labs: Lab Results 05/09/21 05/09/21 05/09/21 Range/Units 13:38 13:38 13:38 WBC 14.3 H (4.0-10.0) 10^3/ uL RBC 4.85 (4.1-5.3) 10^6/u L Hgb 13.7 (11.5-15.3) g/dL Hct 42.8 (37.0-47.0) % MCV 88.2 (81-99) fL MCH 28.2 (28.0-34.0) pg MCHC 32.0 (30.0-36.0) g/dL RDW 12.1 (12.1-15.1) % Plt Count 329 (130-400) 10^3/c mm MPV 11.5 H (7.4-10.4) fL Neut % (Auto) 85.5 % Lymph % (Auto) 7.1 % [place] % (Auto) 6.9 % Eos % (Auto) 0.1 % Baso % (Auto) 0.1 % Neut # (Auto) 12.23 H (1.8-7.7) 10^3/u L Lymph # (Auto) 1.0 (0.8-4.8) 10^3/u L [place] # (Auto) 1.0 H (0.2-0.9) 10^3/u L Eos # (Auto) 0.0 (0.0-0.8) 10^3/u L Baso # (Auto) 0.0 (0.0-0.1) 10^3/u L Nucleated RBC % (a uto) 0 % Nucleated RBCs # 0.0 /100WBC Sodium 128 L (136-145) mmol/L Potassium 5.7 H (3.5-5.1) mmol/L Chloride 90 L (98-107) mmol/L Carbon Dioxide 25 (22-29) mmol/L Anion Gap 18.7 (5-19) BUN 46 H (6-20) mg/dL Creatinine 1.0 H (0.5-0.9) mg/dL GFR Calculation 57.6 L (90-130) mL/min Glucose 508 H* (65-115) mg/dL POC Glucose (70-110) mg/dL Calculated Osmolal ity 301 H (285-295) mOsm/k g Lactic Acid 1.1 (0.5-2.2) mmol/L Calcium 8.6 (8.5-10.5) mg/dL Total Bilirubin 0.5 (0.15-1.2) mg/dL AST 16 (0-32) U/L ALT 16 (0-33) U/L Alkaline Phosphata se 86 (35-105) IU/L Troponin T Baselin e (0-10) ng/L Troponin T 120 Min [place] (0-10) ng/L Delta Troponin T (0-10) ABS# Troponin T Hi Sens 6Hr (0-10) ng/L Troponin T Hi Sens 6Hr Delta (0-12) ng/L C-Reactive Protein 14.4 H (0.0-4.9) mg/L Total Protein 6.5 L (6.6-8.7) g/dL Albumin 3.2 L (3.5-5.2) g/dL Globulin 3.3 (1.3-4.6) g/dL Procalcitonin 0.16 (0-0.5) ng/mL Serum Ketones (Negative) 05/09/21 05/09/21 05/09/21 Range/Units 13:38 13:38 17:29 WBC (4.0-10.0) 10^3/ uL RBC (4.1-5.3) 10^6/u L Hgb (11.5-15.3) g/dL Hct (37.0-47.0) % MCV (81-99) fL MCH (28.0-34.0) pg MCHC (30.0-36.0) g/dL RDW (12.1-15.1) % Plt Count (130-400) 10^3/c mm MPV (7.4-10.4) fL Neut % (Auto) % Lymph % (Auto) % [place] % (Auto) % Eos % (Auto) % Baso % (Auto) % Neut # (Auto) (1.8-7.7) 10^3/u L Lymph # (Auto) (0.8-4.8) 10^3/u L [place]ble # (Auto) (0.2-0.9) 10^3/u L Eos # (Auto) (0.0-0.8) 10^3/u L Baso # (Auto) (0.0-0.1) 10^3/u L Nucleated RBC % (a uto) % Nucleated RBCs # /100WBC Sodium (136-145) mmol/L Potassium (3.5-5.1) mmol/L Chloride (98-107) mmol/L Carbon Dioxide (22-29) mmol/L Anion Gap (5-19) BUN (6-20) mg/dL Creatinine (0.5-0.9) mg/dL GFR Calculation (90-130) mL/min Glucose (65-115) mg/dL POC Glucose (70-110) mg/dL Calculated Osmolal ity (285-295) mOsm/k g Lactic Acid (0.5-2.2) mmol/L Calcium (8.5-10.5) mg/dL Total Bilirubin (0.15-1.2) mg/dL AST (0-32) U/L ALT (0-33) U/L Alkaline Phosphata se (35-105) IU/L Troponin T Baselin e 41 H (0-10) ng/L Troponin T 120 Min [place] 39.40 H (0-10) ng/L Delta Troponin T -1.60 L (0-10) ABS# Troponin T Hi Sens 6Hr (0-10) ng/L Troponin T Hi Sens 6Hr Delta (0-12) ng/L C-Reactive Protein (0.0-4.9) mg/L Total Protein (6.6-8.7) g/dL Albumin (3.5-5.2) g/dL Globulin (1.3-4.6) g/dL Procalcitonin (0-0.5) ng/mL Serum Ketones Negative (Negative) 05/09/21 05/09/21 05/09/21 Range/Units 17:59 19:09 20:03 WBC (4.0-10.0) 10^3/ uL RBC (4.1-5.3) 10^6/u L Hgb (11.5-15.3) g/dL Hct (37.0-47.0) % MCV (81-99) fL MCH (28.0-34.0) pg MCHC (30.0-36.0) g/dL RDW (12.1-15.1) % Plt Count (130-400) 10^3/c mm MPV (7.4-10.4) fL Neut % (Auto) % Lymph % (Auto) % [place] % (Auto) % Eos % (Auto) % Baso % (Auto) % Neut # (Auto) (1.8-7.7) 10^3/u L Lymph # (Auto) (0.8-4.8) 10^3/u L [place] # (Auto) (0.2-0.9) 10^3/u L Eos # (Auto) (0.0-0.8) 10^3/u L Baso # (Auto) (0.0-0.1) 10^3/u L Nucleated RBC % (a uto) % Nucleated RBCs # /100WBC Sodium (136-145) mmol/L Potassium (3.5-5.1) mmol/L Chloride (98-107) mmol/L Carbon Dioxide (22-29) mmol/L Anion Gap (5-19) BUN (6-20) mg/dL Creatinine (0.5-0.9) mg/dL GFR Calculation (90-130) mL/min Glucose (65-115) mg/dL POC Glucose 510 H* 480 H (70-110) mg/dL Calculated Osmolal ity (285-295) mOsm/k g Lactic Acid (0.5-2.2) mmol/L Calcium (8.5-10.5) mg/dL Total Bilirubin (0.15-1.2) mg/dL AST (0-32) U/L ALT (0-33) U/L Alkaline Phosphata se (35-105) IU/L Troponin T Baselin e (0-10) ng/L Troponin T 120 Min [place] (0-10) ng/L Delta Troponin T (0-10) ABS# Troponin T Hi Sens 6Hr 31.20 H (0-10) ng/L Troponin T Hi Sens 6Hr Delta -9.80 L (0-12) ng/L C-Reactive Protein (0.0-4.9) mg/L Total Protein (6.6-8.7) g/dL Albumin (3.5-5.2) g/dL Globulin (1.3-4.6) g/dL Procalcitonin (0-0.5) ng/mL Serum Ketones (Negative) 05/09/21 05/09/21 Range/Units 21:03 22:43 WBC (4.0-10.0) 10^3/ uL RBC (4.1-5.3) 10^6/u L Hgb (11.5-15.3) g/dL Hct (37.0-47.0) % MCV (81-99) fL MCH (28.0-34.0) pg MCHC (30.0-36.0) g/dL RDW (12.1-15.1) % Plt Count (130-400) 10^3/c mm MPV (7.4-10.4) fL Neut % (Auto) % Lymph % (Auto) % [place] % (Auto) % Eos % (Auto) % Baso % (Auto) % Neut # (Auto) (1.8-7.7) 10^3/u L Lymph # (Auto) (0.8-4.8) 10^3/u L [place] # (Auto) (0.2-0.9) 10^3/u L Eos # (Auto) (0.0-0.8) 10^3/u L Baso # (Auto) (0.0-0.1) 10^3/u L Nucleated RBC % (a uto) % Nucleated RBCs # /100WBC Sodium (136-145) mmol/L Potassium (3.5-5.1) mmol/L Chloride (98-107) mmol/L Carbon Dioxide (22-29) mmol/L Anion Gap (5-19) BUN (6-20) mg/dL Creatinine (0.5-0.9) mg/dL GFR Calculation (90-130) mL/min Glucose (65-115) mg/dL POC Glucose 466 H 352 H (70-110) mg/dL Calculated Osmolal ity (285-295) mOsm/k g Lactic Acid (0.5-2.2) mmol/L Calcium (8.5-10.5) mg/dL Total Bilirubin (0.15-1.2) mg/dL AST (0-32) U/L ALT (0-33) U/L Alkaline Phosphata se (35-105) IU/L Troponin T Baselin e (0-10) ng/L Troponin T 120 Min [place] (0-10) ng/L Delta Troponin T (0-10) ABS# Troponin T Hi Sens 6Hr (0-10) ng/L Troponin T Hi Sens 6Hr Delta (0-12) ng/L C-Reactive Protein (0.0-4.9) mg/L Total Protein (6.6-8.7) g/dL Albumin (3.5-5.2) g/dL Globulin (1.3-4.6) g/dL Procalcitonin (0-0.5) ng/mL Serum Ketones (Negative) Imaging Data^: CXR: Attestation: I personally reviewed and interpreted this imaging study as follows: My impression: No lobar consolidation Radiologist's impression: No acute findings EKG Data^: EKG 1: EKG Interpretation Date: 05/09/21 EKG interpretation time: 14:15 Prior EKG tracings: available for review Ischemic changes: non-specific ST-T wave changes Interpretation: Twelve-lead EKG shows a regular sinus rhythm at a rate of 61 LA interval 137. Left axis deviation Interpretation: Sinus rhythm with nonspecific ST segment abnormalities and left axis deviation EKG 2: Attestation: I personally reviewed and interpreted this EKG as follows: EKG Interpretation Date: 05/09/21 EKG interpretation time: 19:00 Prior EKG tracings: available for review Ischemic changes: non-specific ST-T wave changes Interpretation: Twelve-lead EKG shows a regular sinus rhythm at a rate of 71 LA interval 147. Left axis deviation. Interpretation: Sinus rhythm with nonspecific ST segment abnormalities consistent with previous. Discharge Plan Discharge Patient Disposition: Home Clinical Impression: COVID-19, Acute exacerbation of chronic obstructive airways disease, Hyperglycemia Condition: Stable Prescriptions: No Action albuterol sulfate [ProAir HFA] 90 mcg/actuation HFA aerosol inhaler 1 inh INHALATION QID PRN (Reason: Shortness Of Breath) RF: 0 (DME) Diabetic Shoes Qty: 1 RF: 0 (DME) 3 inserts for diabetic shoes See Rx Instructions .Route .MEDSUPPLY Qty: 1 RF: 0 prednisone 20 mg tablet 60 mg PO DAILY 7 Days Qty: 21 RF: 0 clopidogrel 75 mg tablet 75 mg PO DAILY 30 Days Qty: 30 RF: 1 (DME) cpap mask and tubing See Rx Instructions .Route .MEDSUPPLY Qty: 1 RF: 0 (DME) glucometer See Rx Instructions .Route .MEDSUPPLY Qty: 1 RF: 0 aspirin 81 mg tablet,delayed release (DR/EC) 81 mg PO DAILY Qty: 90 RF: 3 atorvastatin 10 mg tablet 10 mg PO DAILY Qty: 90 RF: 3 Levemir FlexTouch U-100 Insuln 100 unit/mL (3 mL) insulin pen 50 unit SUBCUT DAILY 30 Days Qty: 15 RF: 3 cetirizine 10 mg capsule 10 mg PO DAILY Qty: 30 RF: 5 pantoprazole 20 mg tablet,delayed release (DR/EC) 20 mg PO DAILY 30 Days Qty: 30 RF: 5 losartan-hydrochlorothiazide 50-12.5 mg tablet 1 tab PO DAILY Qty: 30 RF: 0 Trulicity 0.75 mg/0.5 mL pen injector 0.75 mg SUBCUT Q7D RF: 0 Discharge Orders: Discharge ED (Routine); Ordered 05/09/21 Ordered By: Gatito Martinez Other Ambulatory Orders: DME: Oxygen (Order) Location: None Selected Ordered By: Gatito Martinez Referrals: Cameron Frost MD [Primary Care Provider] - Discharge Diet: Usual diet and Diabetic Discharge Activity: Resume usual activity Patient Instructions: Viral Pneumonia (ED), Chronic Obstructive Pulmonary Disease (ED), Diabetic Hyperglycemia (ED) Activity Restrictions/Additional Instructions: Thank you for visiting the emergency department. You were seen and evaluated for continued illness and respiratory symptoms. The cause of the symptoms is likely related to COVID-19. We do not see signs of additional bacterial infection. You were noted to have high blood sugar which may be due to your steroid use however we did not find evidence of DKA at this time. We recommend following up closely with your primary care physician and associate professor of economics. Please establish with these physicians if you do not currently have one. Please return to the emergency department if you experience worsening of your current symptoms, uncontrolled blood sugar, increased thirst, hunger, urine output, having to turn up the oxygen even at rest, chest pain, or anything else that you are concerned about and feel needs emergency department evaluation. Please continue previously prescribed medications. Coding Level of Care Code ED Recruitment Director for Alisha Middleton
--- NOTE | 2021-05-09 17:26 | CTR_ITS ---
PROCEDURE INFORMATION: Exam: CTA Chest With Contrast Exam date and time: 05/09/2021 5:26 PM Age: 55 years old Clinical indication: Other: Hypoxemia; Prior surgery; Surgery type: Stents, gb; Patient HX: Recent covid +; Additional info: Elevated d dimer, hypoxemia TECHNIQUE: Imaging protocol: Computed tomographic angiography of the chest with contrast. 3D rendering (Not supervised by radiologist): MIP and/or 3D reconstructed images were created by the technologist. Radiation optimization: All CT scans at this facility use at least one of these dose optimization techniques: automated exposure control; mA and/or kV adjustment per patient size (includes targeted exams where dose is matched to clinical indication); or iterative reconstruction. Contrast material: OMNI 350; Contrast volume: 60 ml; Contrast route: INTRAVENOUS (IV); COMPARISON: CT angio chest PE protcl [id number] 04/28/2021 11:08 PM RADIATION DOSE METRICS: Total DLP (mGy-cm): 553.67 FINDINGS: Pulmonary arteries: Normal. No pulmonary emboli. Aorta: Unremarkable. No aortic aneurysm. No aortic dissection. Lungs: Opacification in the posterior right upper lobe of the lung has resolved in the interval. There has been some interval worsening of ground-glass opacification in the bilateral lungs and especially in the upper and lower lobes of the lung. This does have a peripheral predominance. Pleural spaces: Unremarkable. No pneumothorax. No pleural effusion. Heart: Unremarkable. No cardiomegaly. No pericardial effusion. Lymph nodes: Unremarkable. No enlarged lymph nodes. Bones/joints: Degenerative change is identified in the spine. There is no evidence for acute fracture or malalignment. Soft tissues: Unremarkable. CT/CT angio chest PE protcl [id number] IMPRESSION: There is no evidence for a pulmonary artery embolus. There is bilateral lung disease consistent with the given history of COVID-19 pneumonia.Clinical correlation is advised. Radiation Dose CTDIVOL = (mGy): DLP = 553.67 (mGy-cm)
[2021-05-09] MEDS: acetaminophen 325 mg Tablet 650 MG PO (17:36)
[2021-05-09 17:45] VITALS: BP 163/83; PULSE 64; RESP 24; O2SAT 97
[2021-05-09 18:02] LABS: Glucose Point of Care 510 mg/dL (70-110)
[2021-05-09] MEDS: insulin regular-human 100 units/1 mL 10 UNIT IVP ×2 (18:06→21:20)
[2021-05-09] MEDS: iohexol 350 mg/mL 100 mL Btl IV (18:30)
[2021-05-09] MEDS: ipratropium-albuterol 3 mL Neb INHALATION (18:34)
[2021-05-09 18:35] VITALS: PULSE 71; RESP 20; O2SAT 96
[2021-05-09 19:11] LABS: Glucose Point of Care 480 mg/dL (70-110)
--- NOTE | 2021-05-09 20:18 | ECG_ITS ---
[facility] ED Test Date: 2021-05-09 Pat Name: Radha Henry Department: Room: Gender: Female Wool Fleece Sorter: : 1965 Requested By: Gatito Martinez Order Number: [id number] Go MD: Surekha Fang M.D. Measurements Intervals [place] Rate: 63 P: 29 MA: 147 QRS: -19 QRSD: 98 T: 74 QT: 433 QTc: 445 Interpretive Statements SINUS RHYTHM LEFT VENTRICULAR HYPERTROPHY AND ST-T CHANGE [VOLTAGE CRITERIA PLUS ST/T ABNORMALITY] Compared to ECG 05/09/2021 18:31:53 No significant changes Electronically Signed On 05-12-2021 10:05:34 CDT by Surekha Fang M.D. [id number]
[2021-05-09 21:09] LABS: Glucose Point of Care 466 mg/dL (70-110)
[2021-05-09 21:40] VITALS: BP 116/77; PULSE 63; RESP 22; O2SAT 95
[2021-05-09 22:45] LABS: Glucose Point of Care 352 mg/dL (70-110)
[2021-05-09 23:12] VITALS: BP 106/68; PULSE 116; RESP 26; O2SAT 96
== END 2021-05-09 23:00 | disposition home or self-care (01) ==
PROVIDERS: Physician Assistant; Emergency Provider Emergency Medicine; PCP Family Medicine Adult Medicine
DX: U07.1 COVID-19 (principal); J44.1 Chronic obstructive pulmonary disease with (acute) exacerbation; E11.65 Type 2 diabetes mellitus with hyperglycemia; Z79.02 Long term (current) use of antithrombotics/antiplatelets; Z79.82 Long term (current) use of aspirin; Z79.4 Long term (current) use of insulin; E11.22 Type 2 diabetes mellitus with diabetic chronic kidney disease; I12.9 Hypertensive chronic kidney disease with stage 1 through stage 4 chronic kidney disease, or unspecified chronic kidney disease; N18.30 Chronic kidney disease, stage 3 unspecified; E78.5 Hyperlipidemia, unspecified; E11.42 Type 2 diabetes mellitus with diabetic polyneuropathy; Z87.891 Personal history of nicotine dependence
CPT/HCPCS: 36415; 36416; 71045; 71275; 80053; 82009; 82962; 83605; 84145; 84484; 85025; 86140; 93005; 94640; 96374; 96376; 99284; J1815; Q9967

== ENCOUNTER → 2021-08-15 08:42 | Outpatient (BNVA) | payer MEDICARE, SELFPAY | PROVIDERS: PCP Family Medicine Adult Medicine; Visit Provider Family Medicine Adult Medicine | DX: R30.0 Dysuria (principal); E78.5 Hyperlipidemia, unspecified; Z79.4 Long term (current) use of insulin; R80.9 Proteinuria, unspecified; E11.42 Type 2 diabetes mellitus with diabetic polyneuropathy; I10 Essential (primary) hypertension | CPT/HCPCS: 80053; 80061; 81000; 83036 ==

== ENCOUNTER 2021-11-07 19:36 | Emergency (ER) | payer MEDICARE, SELFPAY ==
[2021-11-07 19:55] VITALS: BP 127/82; PULSE 75; RESP 20; TEMP 36.8; O2SAT 95; BMI 32.5
--- NOTE | 2021-11-07 20:00 | XRR_ITS ---
PROCEDURE INFORMATION: Exam: XR Chest Exam date and time: 11/07/2021 8:00 PM Age: 56 years old Clinical indication: Chest wall pain; Additional info: Chest pain TECHNIQUE: Imaging protocol: XR of the chest. Views: 1 view. COMPARISON: CR (CHEST, ) 04/28/2021 9:46 PM FINDINGS: Lungs: Increased interstitial lung markings, suggesting fibrosis. No consolidative pulmonary infiltrate noted. Pleural spaces: No pleural effusion. No pneumothorax. Heart/Mediastinum: No cardiomegaly. Vasculature: The thoracic aorta is mildly atherosclerotic. Bones/joints: Degenerative spine changes are noted. XR/XR chest 1V portable [id number] IMPRESSION: 1. Increased interstitial lung markings, suggesting fibrosis. No consolidative pulmonary infiltrate noted. 2. There is no interval change from the prior examination.
--- NOTE | 2021-11-07 20:00 | ECG_ITS ---
[facility] Test Date: 2021-11-07 Pat Name: Radha Henry Department: Room: Gender: Female Repair Order Clerk: : 1965 Requested By: Bridgette Hernandez Order Number: [id number] Go MD: Shmuel Gill M.D. Measurements Intervals [place] Rate: 69 P: 58 [place]: 139 QRS: -35 QRSD: 109 T: 81 QT: 402 QTc: 431 Interpretive Statements SINUS RHYTHM LEFT AXIS DEVIATION [QRS AXIS < -30] PROBABLE LATERAL MYOCARDIAL INFARCTION , OF INDETERMINATE AGE [35 ms Q WAVE IN I/aVL/V5/V6] Compared to ECG 11/07/2021 20:03:02 Myocardial infarct finding now present Ectopic atrial rhythm no longer present T-wave abnormality no longer present Electronically Signed On 11-08-2021 17:12:32 CONCRETE FLOAT MAKER by Shmuel Gill M.D. [id number]
--- NOTE | 2021-11-07 22:00 | ECG_ITS ---
[facility] Test Date: 2021-11-07 Pat Name: Radha Henry Department: Room: Gender: Female E Commerce Web Developer: : 1965 Requested By: Bridgette Hernandez Order Number: [id number] Go MD: Surekha Fang M.D. Measurements Intervals [place] Rate: 75 P: -50 [place]: 126 QRS: -39 QRSD: 100 T: 76 QT: 383 QTc: 430 Interpretive Statements ECTOPIC ATRIAL RHYTHM LEFT AXIS DEVIATION [QRS AXIS < -30] NONSPECIFIC ST & T-WAVE ABNORMALITY Compared to ECG 05/09/2021 20:37:06 Ectopic atrial rhythm now present Left-axis deviation now present T-wave abnormality now present Sinus rhythm no longer present Left ventricular hypertrophy no longer present ST (T wave) deviation no longer present Electronically Signed On 11-08-2021 5:18:58 DISTRESSER by Surekha Fang M.D. [email or web address] [id number]
--- NOTE | 2021-11-07 22:53 | ED_ITS ---
HPI - Chest Pain General: Chief Complaint: Chest Pain Stated Complaint: DIZZY X 1 WK Time Seen by Provider: 11/07/21 22:41 Source: patient and EMS Mode of arrival: EMS Limitations: no limitations History of Present Illness: 56-year-old female states that she had her second dose of Covid vaccine on September 29 she states that since then she has been having cough congestion and chest pain. She states the pain is mainly there when she coughs. States she has been on a Z-Parvez and steroids with minimal i mprovement. States she still has a cough. She denies any worsening or improving factors. Associated symptoms: Reports dyspnea; Deny abdominal pain, fever(s), nausea or vomiting Review of Systems Const: Denies: fever(s), chills, body aches or change in appetite Eyes: Denies: blurry vision or eye discomfort ENMT: Denies: throat pain or dental pain Card: Reports: chest pain Resp: Reports: dyspnea and non-productive cough GI: Denies: abdominal pain, nausea, vomiting or diarrhea : Denies: dysuria Musc: Denies: neck pain or back pain Skin/Breast: Denies: rash Neuro: Denies: headache(s) Psych: Denies: depression J Luis/Lymph: Denies: easy bruising All/Imm: Denies: urticaria PFSH ED PFSH: Medical History ASHD (arteriosclerotic heart disease) Stents placed Charcot's joint of left foot CKD (chronic kidney disease) stage 3, GFR 30-59 ml/min COPD (chronic obstructive pulmonary disease) Costochondritis, acute COVID-19 vaccine series completed GERD (gastroesophageal reflux disease) Hammer toes, bilateral Hyperlipidemia Hypertension Hypertension with albuminuria Increased urinary frequency Lab test positive for detection of COVID-19 virus Obesity (BMI 35.0-39.9 without comorbidity) Onychodystrophy Onychomycosis PAD (peripheral artery disease) 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 Surgical History H/O tubal ligation Hx of cholecystectomy Hx of heart artery stent Family History Mother Diabetes Heart disease Denies family history of CAD (coronary artery disease) Clotting disorder Dementia Hyperlipidemia Psychiatric illness Chronic kidney disease (CKD) Suicide Anesthesia complication Bleeding disorder Family history of premature coronary artery disease Lung disease Cancer Hypertension Stroke Social History Quit status (tobacco): has quit using tobacco Year quit tobacco: 9 years ago Alcohol intake: never Physical Exam Const: COMMON NORMALS: no acute distress, patient oriented x3 and healthy appearing HENMT: COMMON NORMALS: normocephalic and atraumatic HEAD & SCALP: normocephalic and atraumatic Eye: COMMON NORMALS: Equal, round and reactive pupils present and EOMs intact bilaterally PUPIL: Yes Equal, round and reactive pupils present Neck/C-Spine: COMMON NORMALS: full ROM and supple Chest: COMMONS NORMALS: normal inspection of the chest and normal palpation of entire chest wall Resp: COMMON NORMALS: normal respiratory effort, No retractions, No use of accessory muscles and clear to auscultation bilaterally AUSCULTATION: clear to auscultation bilaterally Cardio: COMMON NORMALS: regular rate, regular rhythm and No murmurs present (Cardio) RATE: regular rate RHYTHM: regular rhythm GI: COMMON NORMALS: Normal to inspection, nondistended, normoactive bowel sounds present, Soft to palpation, non-tender and no masses PALPATION: Yes Soft to palpation Extremity: COMMON NORMALS: normal to inspection and full ROM Neuro: COMMON NORMALS: patient oriented x3, moves all extremities and no focal motor deficits Psych: COMMON NORMALS: mental status grossly normal, Normal thought process present and cooperative THOUGHT PROCESS: Normal thought process present Skin: COMMON NORMALS: no rashes or lesions noted and no wounds GENERAL SKIN EXAM: no rashes or lesions noted Course Vital Signs: Vital signs: Vital Signs Temperature 98.2 F 11/07/21 19:55 Pulse Rate 65 11/07/21 23:15 Respiratory Rate 18 11/07/21 23:15 Blood Pressure 127/82 11/07/21 19:55 Pulse Oximetry 93 11/07/21 23:15 MDM - Chest Pain Medical Decision Making Patient presents here with chest pain is atypical in nature her 2-hour troponin went down she has no signs of acute coronary syndrome does have a possible pneumonia on her CT scan we will treat with doxycycline her Covid was negative no signs of pulmonary embolism or dissection she is stable for discharge is to follow-up with PCP and return if worsening. Lab Data : 11/07/21 22:57 11/07/21 22:57 Radiology Impressions Chest X-Ray 11/07/21 20:00 IMPRESSION: 1. Increased interstitial lung markings, suggesting fibrosis. No consolidative pulmonary infiltrate noted. 2. There is no interval change from the prior examination. Chest CTA 11/07/21 23:59 IMPRESSION: 1. The study is limited by patient respiratory motion artifact. 2. Pulmonary arteries appear unremarkable. No evidence of pulmonary embolism. 3. No evidence of thoracic aortic aneurysm or dissection. 4. Advanced interstitial pulmonary fibrosis and honeycombing noted throughout both lungs. This is a chronic finding, unchanged from 05/09/2021. 5. Mild residual/recurrent ground-glass infiltrates noted at the lung bases. Imaging features can be seen with COVID-19 pneumonia, though are nonspecific and can occur with a variety of infectious and noninfectious processes. (Reference: Сергей) REFERENCES: Сергей Oden, et al., Radiological Society of [place] Expert Consensus Statement on Reporting Chest CT Findings Related to COVID-19. Endorsed by the Society of Thoracic Radiology, the [employer], and RSNA. Published December 24, 2019. Laboratory Results WBC 9.3 10^3/uL (4.0-10.0) 11/07/21 22:57 RBC 4.19 10^6/uL (4.1-5.3) 11/07/21 22:57 Hgb 11.9 g/dL (11.5-15.3) 11/07/21 22:57 Hct 37.8 % (37.0-47.0) 11/07/21 22: MCV 90.2 fl (81-99) 11/07/21 22:57 MCH 28.4 pg (28.0-34.0) 11/07/21 22: MCHC 31.5 g/dL (30.0-36.0) 11/07/21 22: RDW 13.4 % (12.1-15.1) 11/07/21 22:57 Plt Count 274 10^3/cmm (130-400) 11/07/21 22:57 MPV 10.8 fL (7.4-10.4) H 11/07/21 22:57 Neut % (Auto) 66.3 % 11/07/21 22:57 Lymph % (Auto) 21.2 % 11/07/21 22:57 Miller % (Auto) 8.6 % 11/07/21 22:57 Eos % (Auto) 3.0 % 11/07/21 22:57 Baso % (Auto) 0.5 % 11/07/21 22:57 Neut # (Auto) 6.15 10^3/uL (1.8-7.7) 11/07/21 22:57 Lymph # (Auto) 2.0 10^3/uL (0.8-4.8) 11/07/21 22:57 Miller # (Auto) 0.8 10^3/uL (0.2-0.9) 11/07/21 22:57 Eos # (Auto) 0.3 10^3/uL (0.0-0.8) 11/07/21 22:57 Baso # (Auto) 0.1 10^3/uL (0.0-0.1) 11/07/21 22:57 Nucleated RBC % (auto) 0 % 11/07/21 22:57 Nucleated RBCs # 0.0 /100WBC 11/07/21 22:57 D-Dimer 2.07 ug/mIFEU (0-0.59) H 11/07/21 22:57 Sodium 135 mmol/L (136-145) L 11/07/21 22:57 Potassium 4.3 mmol/L (3.5-5.1) 11/07/21 22:57 Chloride 99 mmol/L (98-107) 11/07/21 22:57 Carbon Dioxide 23 mmol/L (22-29) 11/07/21 22:57 Anion Gap 17.3 (5-19) 11/07/21 22:57 BUN 43 mg/dL (6-20) H 11/07/21 22:57 Creatinine 1.6 mg/dL (0.5-0.9) H 11/07/21 22:57 GFR Calculation 33.3 mL/min (90-130) L 11/07/21 22:57 Glucose 194 mg/dL (65-115) H 11/07/21 22:57 Calculated Osmolality 296 mOsm/kg (285-295) H 11/07/21 22:57 Calcium 8.1 mg/dL (8.5-10.5) L 11/07/21 22:57 Total Bilirubin 0.2 mg/dL (0.15-1.2) 11/07/21 22:57 AST 16 U/L (0-32) 11/07/21 22:57 ALT 13 U/L (0-33) 11/07/21 22:57 Alkaline Phosphatase 98 IU/L (35-105) 11/07/21 22:57 Troponin T Baseline 99 ng/L (0-10) H 11/07/21 22:57 Troponin T 120 Minute 74.57 ng/L (0-10) H 11/08/21 01:12 Delta Troponin T -24.43 ABS# (0-10) L 11/08/21 01:12 Total Protein 6.0 g/dL (6.6-8.7) L 11/07/21 22:57 Albumin 3.5 g/dL (3.5-5.2) 11/07/21 22:57 Globulin 2.5 g/dL (1.3-4.6) 11/07/21 22:57 Coronavirus 229E (PCR) Not detected (NOT DETECT) 11/07/21 22:57 SARS-CoV-2 (PCR) Not detected (NOT DETECT) 11/07/21 22:57 Imaging Data CXR: Radiologist's impression: IMPRESSION: 1. Increased interstitial lung markings, suggesting fibrosis. No consolidative pulmonary infiltrate noted. 2. There is no interval change from the prior examination. CT Chest: Radiologist's impression: IMPRESSION: 1. The study is limited by patient respiratory motion artifact. 2. Pulmonary arteries appear unremarkable. No evidence of pulmonary embolism. 3. No evidence of thoracic aortic aneurysm or dissection. 4. Advanced interstitial pulmonary fibrosis and honeycombing noted throughout both lungs. This is a chronic finding, unchanged from 05/09/2021. 5. Mild residual/recurrent ground-glass infiltrates noted at the lung bases. Imaging features can be seen with COVID-19 pneumonia, though are nonspecific and can occur with a variety of infectious and noninfectious processes. (Reference: Rushing) EKG Data EKG 1: I personally reviewed and interpreted this EKG as follows: EKG interpretation date: 11/07/21 EKG interpretation time: 20:00 Interpretation: nsr hr [address] or t wave abnormalities qrs 100 qtc 412 EKG 2: I personally reviewed and interpreted this EKG as follows: EKG interpretation date: 11/08/21 EKG interpretation time: 02:06 Interpretation: nsr hr [address] or t wave abnormalities qrs 107 qtc 429 Discharge Plan Discharge Patient Disposition: Home Clinical Impression: Atypical chest pain, Bronchitis Condition: Stable Prescriptions: New doxycycline hyclate 100 mg tablet 100 mg PO BID 7 Days Qty: 14 0RF No Action albuterol sulfate [ProAir HFA] 90 mcg/actuation HFA aerosol inhaler 1 inh INHALATION QID PRN (Reason: Shortness Of Breath) 0RF (DME) Diabetic Shoes Qty: 1 0RF Rx Instructions: As directed (DME) 3 inserts for diabetic shoes See Rx Instructions .Route .MEDSUPPLY Qty: 1 0RF Rx Instructions: As directed fluticasone propionate 50 mcg/actuation spray,suspension 1 spray intranasal BID Qty: 16 2RF Rx Instructions: administer into each nostril losartan 50 mg tablet 50 mg PO .hs Qty: 30 5RF hydrochlorothiazide 25 mg tablet 25 mg PO QAM Qty: 30 5RF oxybutynin chloride 10 mg tablet extended release 24hr 10 mg PO DAILY Qty: 30 5RF biotin 5 mg capsule 5 mg PO DAILY 0RF prednisone 20 mg tablet 60 mg PO DAILY 7 Days Qty: 21 0RF azithromycin 500 mg tablet 500 mg PO DAILY 5 Days Qty: 5 0RF atorvastatin 10 mg tablet 10 mg PO DAILY 90 Days Qty: 90 0RF (DME) cpap mask and tubing See Rx Instructions .Route .MEDSUPPLY Qty: 1 0RF Rx Instructions: FOR HOME, sutosubstitue formulary equivalent (DME) glucometer See Rx Instructions .Route .MEDSUPPLY Qty: 1 0RF Rx Instructions: glucometer kit, check bs three times daily 100 strips 100 lancets aspirin 81 mg tablet,delayed release (DR/EC) 81 mg PO DAILY Qty: 90 3RF clopidogrel 75 mg tablet 75 mg PO DAILY 90 Days Qty: 90 1RF cetirizine 10 mg tablet 10 mg PO DAILY 90 Days Qty: 90 2RF Levemir FlexTouch U-100 Insuln 100 unit/mL (3 mL) insulin pen 50 unit SUBCUT DAILY 30 Days Qty: 15 3RF pantoprazole 20 mg tablet,delayed release (DR/EC) 20 mg PO DAILY 90 Days Qty: 90 1RF Trulicity 0.75 mg/0.5 mL pen injector 0.75 mg SUBCUT Q7D 0RF Rx Instructions: ON SUNDAY Discharge Orders: Discharge ED (Routine); Ordered 11/08/21 Ordered By: Kimmie Sahu Referrals: Cameron Frost MD [Primary Care Provider] - 1-3 days Discharge Diet: Advance as tolerated Discharge Activity: Resume usual activity Patient Instructions: Acute Bronchitis (ED) Coding Level of Care Code ED Chemical Pumper for Chg Fwd Exam Comprehensive
[2021-11-07 23:04] LABS: Basophils # 0.1 10^3/uL (0.0-0.1); Basophils % 0.5 %; Eosinophils # 0.3 10^3/uL (0.0-0.8); Hematocrit 37.8 % (37.0-47.0); Hemoglobin 11.9 g/dL (11.5-15.3); Lymphocytes % 21.2 %; Mean Corpuscular HGB Conc 31.5 g/dL (30.0-36.0); Mean Corpuscular Hemoglobin 28.4 pg (28.0-34.0); Mean Corpuscular Volume 90.2 fl (81-99); Mean Platelet Volume 10.8 fL (7.4-10.4); Monocytes # 0.8 10^3/uL (0.2-0.9); Monocytes % 8.6 %; Neutrophils # 6.15 10^3/uL (1.8-7.7); Neutrophils % 66.3 %; Nucleated Red Blood Cells % 0 %; Platelet Count 274 10^3/cmm (130-400); Red Blood Count 4.19 10^6/uL (4.1-5.3); Red Cell Distribution Width 13.4 % (12.1-15.1); White Blood Count 9.3 10^3/uL (4.0-10.0)
[2021-11-07 23:15] VITALS: PULSE 65; RESP 18; O2SAT 93
[2021-11-07] MEDS: ipratropium-albuterol 3 mL Neb INHALATION (23:15)
[2021-11-07 23:42] LABS: Alanine Aminotransferase 13 U/L (0-33); Albumin Level 3.5 g/dL (3.5-5.2); Alkaline Phosphatase 98 IU/L (35-105); Anion Gap 17.3 (5-19); Aspartate Amino Transferase 16 U/L (0-32); Blood Urea Nitrogen 43 mg/dL (6-20); Calcium 8.1 mg/dL (8.5-10.5); Carbon Dioxide 23 mmol/L (22-29); Chloride 99 mmol/L (98-107); Globulin 2.5 g/dL (1.3-4.6); Glomerular Filtration Rate 33.3 mL/min (90-130); Glucose 194 mg/dL (65-115); Osmolality Calculated 296 mOsm/kg (285-295); Potassium 4.3 mmol/L (3.5-5.1); Sodium 135 mmol/L (136-145); Total Bilirubin 0.2 mg/dL (0.15-1.2)
[2021-11-07 23:43] LABS: Troponin(5th) Baseline 99 ng/L (0-10)
[2021-11-07 23:51] LABS: D Dimer 2.07 ug/mIFEU (0-0.59)
--- NOTE | 2021-11-07 23:59 | CTR_ITS ---
PROCEDURE INFORMATION: Exam: CTA Chest With Contrast Exam date and time: 11/07/2021 11:59 PM Age: 56 years old Clinical indication: Shortness of breath; Patient HX: C/O SOB w elev d-dimer TECHNIQUE: Imaging protocol: Computed tomographic angiography of the chest with contrast. 3D rendering (Not supervised by radiologist): MIP and/or 3D reconstructed images were created by the technologist. Radiation optimization: All CT scans at this facility use at least one of these dose optimization techniques: automated exposure control; mA and/or kV adjustment per patient size (includes targeted exams where dose is matched to clinical indication); or iterative reconstruction. Contrast material: VISI 320; Contrast volume: 62 ml; Contrast route: INTRAVENOUS (IV); COMPARISON: CT angio chest PE protcl [id number] 05/09/2021 6:19 PM RADIATION DOSE METRICS: Total DLP (mGy-cm): 517.75 FINDINGS: Limitations: The study is limited by patient respiratory motion artifact. Pulmonary arteries: Pulmonary arteries are normal in caliber. No filling defects are demonstrated. No evidence of pulmonary embolism. Aorta: Atherosclerosis of the thoracic aorta. No aortic dissection. Ascending aorta measures 3.2 cm in diameter. Lungs: Advanced interstitial pulmonary fibrosis and honeycombing noted throughout both lungs. Mild residual/recurrent ground-glass infiltrates noted at the lung bases. Pleural spaces: No pneumothorax. No pleural effusion. Heart: No cardiomegaly. No pericardial effusion. Lymph nodes: No pathologically enlarged lymph nodes are demonstrated. Gallbladder and bile ducts: The gallbladder is surgically absent. Bones/joints: Mild degenerative spine changes. No acute osseous abnormality. Soft tissues: The soft tissues appear unremarkable. The soft tissues appear unremarkable. CT/CT angio chest PE protcl [id number] IMPRESSION: 1. The study is limited by patient respiratory motion artifact. 2. Pulmonary arteries appear unremarkable. No evidence of pulmonary embolism. 3. No evidence of thoracic aortic aneurysm or dissection. 4. Advanced interstitial pulmonary fibrosis and honeycombing noted throughout both lungs. This is a chronic finding, unchanged from 05/09/2021. 5. Mild residual/recurrent ground-glass infiltrates noted at the lung bases. Imaging features can be seen with COVID-19 pneumonia, though are nonspecific and can occur with a variety of infectious and noninfectious processes. (Reference: Сергей) REFERENCES: Сергей Oden et al., Radiological Society of [place] Expert Consensus Statement on Reporting Chest CT Findings Related to COVID-19. Endorsed by the Society of Thoracic Radiology, the [employer] [employer], and RSNA. Published December 24, 2019.
[2021-11-08] MEDS: iodixanol 320 mg/mL 100mL Btl IV (00:49)
[2021-11-08 01:02] LABS: Adenovirus Not Detected (NOT DETECT); Chlamydia Pneumoniae Not Detected (NOT DETECT); Coronavirus 229E,HKU1,NL63,OC4 Not Detected (NOT DETECT); Human Metapneumovirus Not Detected (NOT DETECT); Human Rhinovirus/Enterovirus Not Detected (NOT DETECT); Influenza A Not Detected (NOT DETECT); Influenza A H1 Not Detected (NOT DETECT); Influenza A H1-2009 Not Detected (NOT DETECT); Influenza A H3 Not Detected (NOT DETECT); Influenza B Not Detected (NOT DETECT); Mycoplasma Pneumoniae Not Detected (NOT DETECT); Parainfluenza Virus Type 1 Not Detected (NOT DETECT); Parainfluenza Virus Type 2 Not Detected (NOT DETECT); Parainfluenza Virus Type 3 Not Detected (NOT DETECT); Parainfluenza Virus Type 4 Not Detected (NOT DETECT); Respiratory Syncytial Virus A Not Detected (NOT DETECT); Respiratory Syncytial Virus B Not Detected (NOT DETECT); SARS-COV-2 Not Detected (NOT DETECT)
[2021-11-08] MEDS: sodium chloride 0.9% 1,000 ML 999 ML IV (01:30)
--- NOTE | 2021-11-08 02:00 | ECG_ITS ---
[facility] Test Date: 2021-11-08 Pat Name: Radha Henry Department: Room: Gender: Female Soloist Dancer: : 1965 Requested By: Bridgette Hernandez Order Number: [id number] Go MD: Shmuel Gill M.D. Measurements Intervals [place] Rate: 67 P: 55 AK: 152 QRS: -33 QRSD: 107 T: 80 QT: 414 QTc: 439 Interpretive Statements SINUS RHYTHM LEFT AXIS DEVIATION [QRS AXIS < -30] POSSIBLE RIGHT VENTRICULAR CONDUCTION DELAY [RSR (QR) IN V1/V2] POSSIBLE LATERAL MYOCARDIAL INFARCTION , OF INDETERMINATE AGE [30 ms Q WAVE IN I/aVL/V5/V6] Compared to ECG 11/07/2021 22:58:54 No significant changes Electronically Signed On 11-08-2021 20:57:28 EVENT MARKETING MANAGER by Shmuel Gill M.D. [id number]
[2021-11-08 02:01] LABS: Troponin 5 2HR 74.57 ng/L (0-10)
== END 2021-11-08 02:21 | disposition home or self-care (01) ==
PROVIDERS: Physician Assistant; Emergency Provider Emergency Medicine; PCP Family Medicine Adult Medicine
DX: R07.89 Other chest pain (principal); J40 Bronchitis, not specified as acute or chronic; Z79.82 Long term (current) use of aspirin; Z79.4 Long term (current) use of insulin; I12.9 Hypertensive chronic kidney disease with stage 1 through stage 4 chronic kidney disease, or unspecified chronic kidney disease; E11.22 Type 2 diabetes mellitus with diabetic chronic kidney disease; N18.30 Chronic kidney disease, stage 3 unspecified; J44.9 Chronic obstructive pulmonary disease, unspecified; E78.5 Hyperlipidemia, unspecified; Z87.891 Personal history of nicotine dependence; Z20.822 Contact with and (suspected) exposure to COVID-19
CPT/HCPCS: 71045; 71275; 80053; 84484; 85025; 85378; 87635; 93005; 94640; 96360; 99283; J7030; Q9967

== ENCOUNTER → 2021-11-18 09:00 | Outpatient (BNVA) | payer MEDICARE, SELFPAY | PROVIDERS: PCP Family Medicine Adult Medicine; Visit Provider Family Medicine Adult Medicine | DX: E11.42 Type 2 diabetes mellitus with diabetic polyneuropathy (principal); Z79.4 Long term (current) use of insulin; R80.9 Proteinuria, unspecified; E66.9 Obesity, unspecified; E78.5 Hyperlipidemia, unspecified; E11.22 Type 2 diabetes mellitus with diabetic chronic kidney disease; I12.9 Hypertensive chronic kidney disease with stage 1 through stage 4 chronic kidney disease, or unspecified chronic kidney disease; N18.30 Chronic kidney disease, stage 3 unspecified | CPT/HCPCS: 80053; 83036; 84443 ==

== ENCOUNTER 2022-02-20 18:16 | Emergency (ER) | payer MEDICARE, SELFPAY ==
[2022-02-20 18:27] VITALS: BP 133/80; PULSE 72; RESP 18; TEMP 36.6; O2SAT 96; BMI 33.1
[2022-02-20 18:33] VITALS: BP 127/65; PULSE 71; RESP 16; O2SAT 93
--- NOTE | 2022-02-20 18:34 | W.ED.EXTPRO ---
HPI - Extremity Problem General: Chief complaint: Extremity Problem,Nontraumatic Stated complaint: L arm aches Time Seen by Provider: 02/20/22 18:33 History of Present Illness: 56-year-old female comes in today with left elbow pain for 3 weeks patient believes the pain to be related to a muscle pull at first, but remembered she hasa history of cellulitis to that extremity in the same area and the pain reminds her of that time. Patient denies any chest pain. Patient does have a history of diabetes mellitus, coronary artery disease, COPD, GERD, hypertension, and pulmonary fibrosis. Patient appears mildly unwell but not toxic. Patient appears in mild to moderate pain. Associated symptoms: Deny chest pain Review of Systems General: Reports: 10 or more systems reviewed and unremarkable except in HPI and below Card: Denies: chest pain Resp: Denies: dyspnea GI: Denies: nausea : Denies: difficulty voiding Musc: Reports: extremity pain Skin/Breast: Reports: non-healing lesions Neuro: Denies: numbness in extremities PFS ED PFSH: Medical History (Updated 02/20/22 @ 18:57 by NESTOR Gloria) ASHD (arteriosclerotic heart disease) Stents placed Charcot's joint of left foot CKD (chronic kidney disease) stage 3, GFR 30-59 ml/min Combined pulmonary fibrosis and emphysema (CPFE) Costochondritis, acute COVID-19 vaccine series completed COVID Test positive on 05/02/2021. GERD (gastroesophageal reflux disease) Hammer toes, bilateral Hyperlipidemia Hypertension with albuminuria Increased thyroid stimulating hormone (TSH) level Obesity (BMI 35.0-39.9 without comorbidity) Onychodystrophy Onychomycosis PAD (peripheral artery disease) Type 2 diabetes mellitus with diabetic polyneuropathy Surgical History H/O tubal ligation Hx of cholecystectomy Hx of heart artery stent Family History Mother Diabetes Heart disease Denies family history of CAD (coronary artery disease) Clotting disorder Dementia Hyperlipidemia Psychiatric illness Chronic kidney disease (CKD) Suicide Anesthesia complication Bleeding disorder Family history of premature coronary artery disease Lung disease Cancer Hypertension Stroke Social History Smoking and tobacco status: former smoker Quit status (tobacco): has quit using tobacco Year quit tobacco: 9 years ago Alcohol intake: never Physical Exam Const: COMMON NORMALS: alert HENMT: COMMON NORMALS: normocephalic HEAD & SCALP: normocephalic Neck/C-Spine: CERVICAL SPINE: Yes cervical ROM normal and No Paracervical muscle tenderness Resp: COMMON NORMALS: normal respiratory effort and clear to auscultation bilaterally AUSCULTATION: clear to auscultation bilaterally Cardio: COMMON NORMALS: regular rate and regular rhythm RATE: regular rate RHYTHM: regular rhythm GI: COMMON NORMALS: non-tender Extremity: LEFT UPPER EXTREMITY: Yes upper arm (Tenderness to the posterior upper arm, no redness) and Yes elbow joint (Posterior coin sized lesion, minimal redness.) Left elbow: Yes inspection, Yes palpation and Yes ROM Neuro: SENSORIUM/ORIENTATION: Yes alert Course Vital Signs: Vital signs: Vital Signs Temperature 97.9 F 02/20/22 18:27 Pulse Rate 71 02/20/22 18:33 Respiratory Rate 16 02/20/22 18:33 Blood Pressure 127/65 02/20/22 18:33 Pulse Oximetry 93 02/20/22 18:33 MDM - Extremity (Nontraumatic) Medical Decision Making Patient comes in today with complaints of posterior left upper arm pain. On exam patient does have a dry patchy lesion to the elbow with some tenderness to palpation. Minimal to no redness is noted to the extremity. Patient has tenderness on palpation of the muscles of the upper arm and trapezius area. Normal range of motion. Vital signs are normal. Differential diagnosis includes not limited to musculoskeletal pain, cellulitis, psoriatic arthritis, cervical radiculopathy. Reviewed exam with patient with recommendations for treatment for pain. Recommending ice and acetaminophen. Due to patient's diabetes and history of cellulitis we will go ahead and cover with cephalexin 500 mg 3 times a day for 7 days although no strong signs or symptoms are noted for cellulitis. Discharge Plan Discharge Patient Disposition: Home Clinical Impression: Pain in left elbow Cellulitis Qualifiers: Site of cellulitis: extremity Site of cellulitis of extremity: upper extremity Laterality: left Qualified Code(s): L03.114 - Cellulitis of left upper limb Condition: Stable Prescriptions: New cephalexin 500 mg capsule 500 mg PO TID 7 Days Qty: 21 0RF No Action albuterol sulfate [ProAir HFA] 90 mcg/actuation HFA aerosol inhaler 1 inh INHALATION QID PRN (Reason: Shortness Of Breath) 0RF (DME) Diabetic Shoes Qty: 1 0RF Rx Instructions: As directed (DME) 3 inserts for diabetic shoes See Rx Instructions .Route .MEDSUPPLY Qty: 1 0RF Rx Instructions: As directed fluticasone propionate 50 mcg/actuation spray,suspension 1 spray intranasal BID Qty: 16 2RF Rx Instructions: administer into each nostril losartan 50 mg tablet 50 mg PO .hs Qty: 30 5RF hydrochlorothiazide 25 mg tablet 25 mg PO QAM Qty: 30 5RF oxybutynin chloride 10 mg tablet extended release 24hr 10 mg PO DAILY Qty: 30 5RF Januvia 100 mg tablet 100 mg PO DAILY Qty: 30 5RF Rx Instructions: 340B meds biotin 5 mg capsule 5 mg PO DAILY 0RF fluticasone propion-salmeterol [Advair Diskus] 250-50 mcg/dose blister with device 1 inh inhalation BID Qty: 60 5RF (DME) cpap mask and tubing See Rx Instructions .Route .MEDSUPPLY Qty: 1 0RF Rx Instructions: FOR HOME, sutosubstitue formulary equivalent (DME) glucometer See Rx Instructions .Route .MEDSUPPLY Qty: 1 0RF Rx Instructions: glucometer kit, check bs three times daily 100 strips 100 lancets aspirin 81 mg tablet,delayed release (DR/EC) 81 mg PO DAILY Qty: 90 3RF cetirizine 10 mg tablet 10 mg PO DAILY 90 Days Qty: 90 2RF pantoprazole 20 mg tablet,delayed release (DR/EC) 20 mg PO DAILY 90 Days Qty: 90 1RF Levemir FlexTouch U-100 Insuln 100 unit/mL (3 mL) insulin pen See Rx Instructions .ROUTE .COMPLEX Qty: 15 3RF Dose Instruction: INJECT 50 UNITS SUBCUTANEOUSLY EVERY DAY Rx Instructions: INJECT 50 UNITS SUBCUTANEOUSLY EVERY DAY atorvastatin 10 mg tablet See Rx Instructions .ROUTE .COMPLEX Qty: 90 0RF Dose Instruction: TAKE 1 TABLET BY MOUTH EVERY DAY Rx Instructions: TAKE 1 TABLET BY MOUTH EVERY DAY clopidogrel 75 mg tablet See Rx Instructions .ROUTE .COMPLEX Qty: 90 1RF Dose Instruction: TAKE 1 TABLET BY MOUTH EVERY DAY Rx Instructions: TAKE 1 TABLET BY MOUTH EVERY DAY Discharge Orders: Discharge ED (Routine); Ordered 02/20/22 Ordered By: Brayden Beltran Referrals: Cameron Frost MD [Primary Care Provider] - Discharge Diet: Usual diet Discharge Activity: Increase activity as tolerated Patient Instructions: Musculoskeletal Pain (ED) Activity Restrictions/Additional Instructions: Use acetaminophen or ibuprofen for pain. Drink plenty of water with medication. Take antibiotic as directed. Return to ER for high fever, worsening pain, or new concerns. Coding Level of Care Code ED Accounting Policy Consultant for Alisha Middleton
[2022-02-20] MEDS: cephALEXin 500 mg Capsule PO (19:04)
== END 2022-02-20 19:05 | disposition home or self-care (01) ==
PROVIDERS: Emergency Provider Nurse Practitioner Family; PCP Family Medicine Adult Medicine
DX: M79.602 Pain in left arm (principal); L03.114 Cellulitis of left upper limb
CPT/HCPCS: 99283

== ENCOUNTER → 2022-02-24 09:00 | Outpatient (BNVA) | payer MEDICARE, SELFPAY | PROVIDERS: PCP Family Medicine Adult Medicine; Visit Provider Family Medicine Adult Medicine | DX: E11.42 Type 2 diabetes mellitus with diabetic polyneuropathy (principal); Z79.4 Long term (current) use of insulin; I10 Essential (primary) hypertension; R80.9 Proteinuria, unspecified; R79.89 Other specified abnormal findings of blood chemistry; J43.9 Emphysema, unspecified; J84.10 Pulmonary fibrosis, unspecified; E78.5 Hyperlipidemia, unspecified; E66.9 Obesity, unspecified; I25.10 Atherosclerotic heart disease of native coronary artery without angina pectoris; E11.51 Type 2 diabetes mellitus with diabetic peripheral angiopathy without gangrene | CPT/HCPCS: 80053; 83036; 84443; 85025 ==

== ENCOUNTER → 2022-07-05 08:28 | Outpatient (BNVA) | payer MEDICARE, SELFPAY | PROVIDERS: PCP Family Medicine Adult Medicine; Visit Provider Podiatrist Foot & Ankle Surgery | DX: E11.8 Type 2 diabetes mellitus with unspecified complications (principal); I73.9 Peripheral vascular disease, unspecified; E11.42 Type 2 diabetes mellitus with diabetic polyneuropathy; L84 Corns and callosities; M14.672 Charcot's joint, left ankle and foot; B35.1 Tinea unguium; Z79.4 Long term (current) use of insulin | CPT/HCPCS: 11721 ==

== ENCOUNTER 2022-08-15 17:19 | Emergency (ER) | payer MEDICARE, SELFPAY ==
[2022-08-15 17:25] VITALS: BP 164/76; PULSE 80; RESP 22; TEMP 36.7; O2SAT 94
--- NOTE | 2022-08-15 17:30 | XRR_ITS ---
PROCEDURE INFORMATION: Exam: XR Chest Exam date and time: 08/15/2022 5:55 PM Age: 57 years old Clinical indication: Shortness of breath TECHNIQUE: Imaging protocol: Radiologic exam of the chest. Views: 2 views. COMPARISON: CR XR chest 1V portable [id number] 11/07/2021 8:10 PM FINDINGS: Lungs: Reticular changes of interstitium likely representing widespread interstitial fibrotic lung disease. No consolidation. Pleural spaces: Unremarkable. No pleural effusion. No pneumothorax. Heart/Mediastinum: Mild cardiomegaly. Bones/joints: Unremarkable. XR/XR chest 2V* [id number] IMPRESSION: No focal acute pulmonary disease identified.
--- NOTE | 2022-08-15 19:08 | ECG_ITS ---
[facility] Test Date: 2022-08-15 Pat Name: Radha Henry Department: Room: Gender: Female Ophthalmic Assistant: : 1965 Requested By: Karrie Ferguson Order Number: [id number] Stiles MD: Shmuel Gill M.D. Measurements Intervals [place] Rate: 72 P: 47 OK: 155 QRS: -2 QRSD: 108 T: 54 QT: 391 QTc: 430 Interpretive Statements SINUS RHYTHM LEFT VENTRICULAR HYPERTROPHY AND ST-T CHANGE [VOLTAGE CRITERIA PLUS ST/T ABNORMALITY] PROBABLE LATERAL MYOCARDIAL INFARCTION , PROBABLY OLD [35 ms Q WAVE IN I/aVL/V5/V6] INFERIOR MYOCARDIAL INFARCTION , PROBABLY OLD [40+ ms Q WAVE AND/OR ST/T ABNORMALITY IN II/aVF] Compared to ECG 11/08/2021 02:06:13 Left ventricular hypertrophy now present ST (T wave) deviation now present Left-axis deviation no longer present Myocardial infarct finding still present Electronically Signed On 08-18-2022 6:31:04 HYPERBARIC WELDER DIVER by Shmuel Gill M.D. [id number]
--- NOTE | 2022-08-15 19:23 | ED_ITS ---
HPI - SOB/Dyspnea General: Chief Complaint: Shortness of Breath/Dyspnea Stated Complaint: SOB,cough,earache,headache Time Seen by Provider: 08/15/22 18:52 History of Present Illness: HPI Narrative: Patient is in today for cough, shortness of breath. She reports that she has had significant nasal congestion and drainage with a dry cough for several days. She reports that 3 days ago she started having shortness of breath with some wheezing. She reports that she also started having some left-sided chest pain. She reports that it is constant it does not come and go. She reports that nothing seems to make it better or worse. She reports that she has had 2 heart attacks in the past but the pain was always very different than what she is experiencing now. She denies any radiation of pain. She denies any recent travel, long trips, surgery, swelling or pain in her legs. She states that she has had ear pain on the right side. She reports that this feels very much like an illness that she gets every fall. She stated she has COPD and has a flareup of the staff every fall and needs a Z-Parvez. She denies fever or chills. Associated symptoms: Reports chest pain; Deny abdominal pain, fever(s), lightheadedness, nausea, palpitations, syncope or vomiting Review of Systems Const: Denies: fever(s) or chills ENMT: Reports: ear or mastoid pain (Right ear), nasal discharge and nasal congestion Card: Reports: chest pain and dyspnea on exertion; Denies: palpitations, swelling of feet/ankles, lightheadedness, syncope or leg pain with exertion Resp: Reports: dyspnea, non-productive cough and wheezing GI: Denies: abdominal pain, nausea or vomiting PFSH ED PFSH: Medical History ASHD (arteriosclerotic heart disease) Stents placed Charcot's joint of left foot CKD (chronic kidney disease) stage 3, GFR 30-59 ml/min Combined pulmonary fibrosis and emphysema (CPFE) Costochondritis, acute COVID-19 vaccine series completed COVID Test positive on 05/02/2021. GERD (gastroesophageal reflux disease) Hammer toes, bilateral Hyperlipidemia Hypertension with albuminuria Increased thyroid stimulating hormone (TSH) level Obesity (BMI 35.0-39.9 without comorbidity) Onychodystrophy Onychomycosis PAD (peripheral artery disease) Right otitis media Type 2 diabetes mellitus with diabetic polyneuropathy Surgical History H/O tubal ligation Hx of cholecystectomy Hx of heart artery stent Family History Mother Diabetes Heart disease Denies family history of CAD (coronary artery disease) Clotting disorder Dementia Hyperlipidemia Psychiatric illness Chronic kidney disease (CKD) Suicide Anesthesia complication Bleeding disorder Family history of premature coronary artery disease Lung disease Cancer Hypertension Stroke Social History Smoking and tobacco status: never smoked Quit status (tobacco): has quit using tobacco Year quit tobacco: 9 years ago Alcohol intake: never Physical Exam Const: COMMON NORMALS: no acute distress, patient oriented x3 and alert HENMT: NOSE: Nasal discharge present clear TYMPANIC MEMBRANE: TM normal on the left and TM abnormal TM laterality: right Details: bulging and erythematous THROAT: uvula midline and postnasal drainage Neck/C-Spine: COMMON NORMALS: no JVD Resp: COMMON NORMALS: normal respiratory effort and No use of accessory muscles AUSCULTATION: rhonchi (Mild) lower bilaterally and wheezes (A few scattered expiratory wheezes bilateral upper lobes) Cardio: COMMON NORMALS: no JVD, regular rate, regular rhythm, S1 normal heart sound present, S2 normal heart sound present and No murmurs present (Cardio) RATE: regular rate RHYTHM: regular rhythm HEART SOUNDS: S1 normal heart sound present and S2 normal heart sound present Extremity: NARRATIVE EXTREMITY EXAM: Negative for lower extremity edema Neuro: COMMON NORMALS: patient oriented x3 SENSORIUM/ORIENTATION: Yes alert Course Vital Signs: Vital signs: Vital Signs Temperature 98.1 F 08/15/22 17:25 Pulse Rate 78 08/15/22 22:27 Respiratory Rate 17 08/15/22 22:27 Blood Pressure 156/80 08/15/22 22:27 Pulse Oximetry 93 08/15/22 22:27 Oxygen Delivery Me thod 08/15/22 22:00 MDM - SOB/Dyspnea Medical Decision Making Patient is in today for shortness of breath, cough, nasal congestion and drainage, ear pain, as well as chest pain ongoing x3 days. She states that it is different than her previous heart attacks that she had. She states that nothing makes the pain better or worse. She is a diabetic patient and reports that her sugars have been elevated this happens every fall when she gets sick like this. She reports that she typically has to take a Z-Parvez and steroids to get over the staff since she has the emphysema. She denies any recent travel, surgery, or leg pain or swelling. EKG shows some ST changes that are likely chronic. Reviewed EKG with Dr. Sahu and he does agree. Basic labs with troponin ordered. X-ray shows no focal acute pulmonary disease, but mild cardiomegaly. Patient has history of elevated BN P. She takes diuretic routinely. Her weight is down from her last office visit. She does not have pedal edema or JVD at this time. First troponin is 18. 2-hour troponin is unchanged at 18. Patient reports that she is feeling well and she would like to go home. Blood glucose is 389. Patient states that she is due for insulin at home and she wants to treat this at home. She denies any visual disturbance or other symptoms. She reports that her blood glucose has been high and does that every time she is ill. BUN and creatinine are elevated patient has chronic kidney disease stage III. We will treat patient for otitis media and acute exacerbation of emphysema. Use inhaler she has at home. Start patient on Z-Parvez antibiotic first dose given tonight. Advised patient possible benefits and side effects of medications. Follow-up with primary care provider. Return to ER as needed for any new or worsening symptoms. Lab Data 08/15/22 19:11 08/15/22 19:11 Labs/Radiology: Radiology Impressions Chest X-Ray 08/15/22 17:30 IMPRESSION: No focal acute pulmonary disease identified. Laboratory Results WBC 10.4 10^3/uL (4.0-10.0) H 08/15/22 19:11 RBC 4.03 10^6/uL (4.1-5.3) L 08/15/22 19:11 Hgb 11.6 g/dL (11.5-15.3) 08/15/22 19:11 Hct 36.9 % (37.0-47.0) L 08/15/22 19:11 MCV 91.6 fl (81-99) 08/15/22 19:11 MCH 28.8 pg (28.0-34.0) 08/15/22 19:11 MCHC 31.4 g/dL (30.0-36.0) 08/15/22 19:11 RDW 13.2 % (12.1-15.1) 08/15/22 19:11 Plt Count 235 10^3/cmm (130-400) 08/15/22 19:11 MPV 11.9 fL (7.4-10.4) H 08/15/22 19:11 Neut % (Auto) 71.6 % 08/15/22 19:11 Lymph % (Auto) 15.7 % 08/15/22 19:11 Nye % (Auto) 8.4 % 08/15/22 19:11 Eos % (Auto) 3.3 % 08/15/22 19:11 Baso % (Auto) 0.7 % 08/15/22 19:11 Neut # (Auto) 7.42 10^3/uL (1.8-7.7) 08/15/22 19:11 Lymph # (Auto) 1.6 10^3/uL (0.8-4.8) 08/15/22 19:11 Nye # (Auto) 0.9 10^3/uL (0.2-0.9) 08/15/22 19:11 Eos # (Auto) 0.3 10^3/uL (0.0-0.8) 08/15/22 19:11 Baso # (Auto) 0.1 10^3/uL (0.0-0.1) 08/15/22 19:11 Nucleated RBC % (auto) 0 % 08/15/22 19:11 Nucleated RBCs # 0.0 /100WBC 08/15/22 19:11 Sodium 135 mmol/L (136-145) L 08/15/22 19:11 Potassium 4.8 mmol/L (3.5-5.1) 08/15/22 19:11 Chloride 97 mmol/L (98-107) L 08/15/22 19:11 Carbon Dioxide 25 mmol/L (22-29) 08/15/22 19:11 Anion Gap 17.8 (5-19) 08/15/22 19:11 BUN 27 mg/dL (6-20) H 08/15/22 19:11 Creatinine 1.1 mg/dL (0.5-0.9) H 08/15/22 19:11 GFR Calculation 51.2 mL/min (90-130) L 08/15/22 19:11 Glucose 389 mg/dL (65-115) H 08/15/22 19:11 Calculated Osmolality 301 mOsm/kg (285-295) H 08/15/22 19:11 Calcium 9.3 mg/dL (8.5-10.5) 08/15/22 19:11 Total Bilirubin 0.3 mg/dL (0.15-1.2) 08/15/22 19:11 AST 14 U/L (0-32) 08/15/22 19:11 ALT 14 U/L (0-33) 08/15/22 19:11 Alkaline Phosphatase 117 U/L (35-105) H 08/15/22 19:11 Troponin T Gen 5 ng/L 18 ng/L (0-10) H 08/15/22 21:06 Total Protein 7.5 g/dL (6.6-8.7) 08/15/22 19:11 Albumin 3.3 g/dL (3.5-5.2) L 08/15/22 19:11 Globulin 4.2 g/dL (1.3-4.6) 08/15/22 19:11 Influenza Type A Ag negative (Negative) 08/15/22 18:57 Influenza Type B Ag negative (Negative) 08/15/22 18:57 SARS-CoV-2 Ag (Rapid) negative (Negative) 08/15/22 18:57 Discharge Plan Discharge Patient Disposition: Home Clinical Impression: Acute exacerbation of chronic obstructive airways disease, Chest pain, Otitis media Condition: Stable Prescriptions: New Zithromax 250 mg tablet 250 mg PO DAILY 4 Days Qty: 4 0RF Rx Instructions: start on day 2 of therapy No Action albuterol sulfate [ProAir HFA] 90 mcg/actuation HFA aerosol inhaler 1 inh INHALATION QID PRN (Reason: Shortness Of Breath) fluticasone propionate 50 mcg/actuation spray,suspension 1 spray intranasal BID Qty: 16 2RF Rx Instructions: administer into each nostril Januvia 100 mg tablet 100 mg PO DAILY Qty: 30 5RF Rx Instructions: 340B meds fluticasone propion-salmeterol [Advair Diskus] 250-50 mcg/dose blister with device 1 inh inhalation BID Qty: 60 5RF azithromycin 250 mg tablet See Rx Instructions PO .COMPLEX Qty: 6 0RF Rx Instructions: For 250 mg dose pack: take 500 mg today (day 1), then 250 mg for 4 days (days 2-5) PO benzonatate 200 mg capsule 200 mg PO BID PRN (Reason: cough) Qty: 14 0RF ([facility] [place] [place] Diabetic Shoes with 3 pairs of inserts See Rx Instructions .ROUTE .MEDSUPPLY Qty: 1 0RF Rx Instructions: As directed by [employer] ([facility] [place] cpap mask and tubing See Rx Instructions .Route .MEDSUPPLY Qty: 1 0RF Rx Instructions: FOR HOME, sutosubstitue formulary equivalent ([facility] [place] glucometer See Rx Instructions .Route .MEDSUPPLY Qty: 1 0RF Rx Instructions: glucometer kit, check bs three times daily 100 strips 100 lancets aspirin 81 mg tablet,delayed release (DR/EC) 81 mg PO DAILY Qty: 90 3RF cetirizine 10 mg tablet 10 mg PO DAILY 90 Days Qty: 90 2RF hydrochlorothiazide 25 mg tablet See Rx Instructions .ROUTE .COMPLEX Qty: 90 1RF Dose Instruction: TAKE 1 TABLET BY MOUTH EVERY MORNING FOR BLOOD PRESSURE Rx Instructions: TAKE 1 TABLET BY MOUTH EVERY MORNING FOR BLOOD PRESSURE losartan 50 mg tablet See Rx Instructions .ROUTE .COMPLEX Qty: 90 1RF Dose Instruction: TAKE 1 TABLET BY MOUTH AT BEDTIME FOR BLOOD PRESSURE AND KIDNEY Rx Instructions: TAKE 1 TABLET BY MOUTH AT BEDTIME FOR BLOOD PRESSURE AND KIDNEY pantoprazole 20 mg tablet,delayed release (DR/EC) See Rx Instructions .ROUTE .COMPLEX Qty: 90 1RF Dose Instruction: TAKE 1 TABLET BY MOUTH EVERY DAY Rx Instructions: TAKE 1 TABLET BY MOUTH EVERY DAY atorvastatin 10 mg tablet See Rx Instructions .ROUTE .COMPLEX Qty: 90 1RF Dose Instruction: TAKE 1 TABLET BY MOUTH EVERY DAY Rx Instructions: TAKE 1 TABLET BY MOUTH EVERY DAY Levemir FlexTouch U-100 Insuln 100 unit/mL (3 mL) insulin pen See Rx Instructions .ROUTE .COMPLEX Qty: 15 3RF Dose Instruction: INJECT 50 UNITS SUBCUTANEOUSLY EVERY DAY Rx Instructions: INJECT 50 UNITS SUBCUTANEOUSLY EVERY DAY (DME) Diabetic shoes with 3 inserts See Rx Instructions .Route .MEDSUPPLY Qty: 1 0RF Rx Instructions: As directed HOME (DME) Diabetic Shoes See Rx Instructions .Route .MEDSUPPLY Qty: 1 0RF Rx Instructions: As directed HOME (DME) Custom Molded Accommodative Orthotics See Rx Instructions .Route .MEDSUPPLY Qty: 1 0RF Rx Instructions: As directed [employer] [place] clopidogrel 75 mg tablet See Rx Instructions .ROUTE .COMPLEX Qty: 90 1RF Dose Instruction: TAKE 1 TABLET BY MOUTH EVERY DAY Rx Instructions: TAKE 1 TABLET BY MOUTH EVERY DAY Discharge Orders: Discharge ED (Routine); Ordered 08/15/22 Ordered By: Karrie Ferguson Referrals: Cameron Frost MD [Primary Care Provider] - Discharge Diet: Usual diet Discharge Activity: Resume usual activity Patient Instructions: COPD (Chronic Obstructive Pulmonary Disease) (ED) Activity Restrictions/Additional Instructions: Start prescription medication tomorrow. Your first dose was given tonight in the ER. Use your inhaler as needed and previously prescribed. Monitor your blood glucose closely. Take your insulin when you get home tonight as per your previously prescribed orders. Follow-up with your primary care provider next week. Return to the ER for any new or worsening symptoms. Coding Level of Care Code ED Cogeneration Operator for Alisha Fwd Exam Detailed
[2022-08-15 19:27] VITALS: BP 163/83; PULSE 76; RESP 22; O2SAT 93
[2022-08-15 19:53] LABS: Basophils # 0.1 10^3/uL (0.0-0.1); Basophils % 0.7 %; Eosinophils # 0.3 10^3/uL (0.0-0.8); Eosinophils % 3.3 %; Hematocrit 36.9 % (37.0-47.0); Hemoglobin 11.6 g/dL (11.5-15.3); Lymphocytes # 1.6 10^3/uL (0.8-4.8); Lymphocytes % 15.7 %; Mean Corpuscular HGB Conc 31.4 g/dL (30.0-36.0); Mean Corpuscular Hemoglobin 28.8 pg (28.0-34.0); Mean Corpuscular Volume 91.6 fl (81-99); Mean Platelet Volume 11.9 fL (7.4-10.4); Monocytes # 0.9 10^3/uL (0.2-0.9); Monocytes % 8.4 %; Neutrophils # 7.42 10^3/uL (1.8-7.7); Neutrophils % 71.6 %; Nucleated Red Blood Cells % 0 %; Platelet Count 235 10^3/cmm (130-400); Red Blood Count 4.03 10^6/uL (4.1-5.3); Red Cell Distribution Width 13.2 % (12.1-15.1); White Blood Count 10.4 10^3/uL (4.0-10.0)
[2022-08-15 19:55] LABS: SARS Covid-2 Antigen negative (Negative)
[2022-08-15 19:56] LABS: Troponin T (5th) Once 18 ng/L (0-10)
[2022-08-15 19:56] LABS: Influenza A by IFA negative (Negative); Influenza B by IFA negative (Negative)
[2022-08-15 19:58] LABS: Alanine Aminotransferase 14 U/L (0-33); Albumin Level 3.3 g/dL (3.5-5.2); Alkaline Phosphatase 117 U/L (35-105); Aspartate Amino Transferase 14 U/L (0-32); Blood Urea Nitrogen 27 mg/dL (6-20); Calcium 9.3 mg/dL (8.5-10.5); Carbon Dioxide 25 mmol/L (22-29); Chloride 97 mmol/L (98-107); Globulin 4.2 g/dL (1.3-4.6); Glomerular Filtration Rate 51.2 mL/min (90-130); Glucose 389 mg/dL (65-115); Osmolality Calculated 301 mOsm/kg (285-295); Sodium 135 mmol/L (136-145); Total Bilirubin 0.3 mg/dL (0.15-1.2); Total Protein 7.5 g/dL (6.6-8.7)
[2022-08-15 19:59] LABS: Anion Gap 17.8 (5-19); Potassium 4.8 mmol/L (3.5-5.1)
[2022-08-15 21:00] VITALS: BP 150/75; PULSE 69; RESP 25; O2SAT 90
[2022-08-15 21:30] LABS: Troponin T (5th) Once 18 ng/L (0-10)
[2022-08-15 22:00] VITALS: BP 156/80; PULSE 78; RESP 17; O2SAT 93
[2022-08-15] MEDS: azithromycin 250 mg Tablet 500 MG PO (22:16)
[2022-08-15 22:27] VITALS: BP 156/80; PULSE 78; RESP 17; O2SAT 93
== END 2022-08-15 21:30 | disposition home or self-care (01) ==
PROVIDERS: Emergency Medicine; Emergency Provider Nurse Practitioner Family; PCP Family Medicine Adult Medicine
DX: J44.1 Chronic obstructive pulmonary disease with (acute) exacerbation (principal); R07.9 Chest pain, unspecified; H66.91 Otitis media, unspecified, right ear; Z20.822 Contact with and (suspected) exposure to COVID-19; Z79.82 Long term (current) use of aspirin; Z79.02 Long term (current) use of antithrombotics/antiplatelets; Z79.4 Long term (current) use of insulin; Z87.891 Personal history of nicotine dependence; I12.9 Hypertensive chronic kidney disease with stage 1 through stage 4 chronic kidney disease, or unspecified chronic kidney disease; E11.22 Type 2 diabetes mellitus with diabetic chronic kidney disease; N18.30 Chronic kidney disease, stage 3 unspecified; E78.5 Hyperlipidemia, unspecified
CPT/HCPCS: 71046; 80053; 84484; 85025; 87426; 87804; 93005; 99285; Q0144

== ENCOUNTER → 2022-08-30 10:51 | Outpatient (BNVA) | payer MEDICARE, SELFPAY | PROVIDERS: PCP Family Medicine Adult Medicine; Visit Provider Family Medicine Adult Medicine | DX: E11.42 Type 2 diabetes mellitus with diabetic polyneuropathy (principal); Z79.4 Long term (current) use of insulin | CPT/HCPCS: 83036 ==

== ENCOUNTER 2022-09-09 11:19 | Observation (INO) | payer MEDICARE, SELFPAY ==
[2022-09-09] VITALS (15 sets, daily range): BP systolic 107–165; BP diastolic 51–90; PULSE 60–91; RESP 16–24; TEMP 36.4–37.4; O2SAT 85–96; BMI 35.4
--- NOTE | 2022-09-09 11:37 | XRR_ITS ---
PROCEDURE INFORMATION: Exam: XR Chest Exam date and time: 09/09/2022 12:13 PM Age: 57 years old Clinical indication: Cough and shortness of breath; Prior surgery; Surgery date: 6+ months; Surgery type: Heart artery stent; Patient HX: Shortness of breath x 3 weeks; Cough-productive; Chills; Fatigue; HX of copd; HX of coronary disease; Additional info: Shortness of breath; Cough TECHNIQUE: Imaging protocol: Radiologic exam of the chest. Views: 1 view. COMPARISON: CR (CHEST, ) 08/15/2022 5:55 PM FINDINGS: Lungs: Normal lung volumes. Unchanged mild perihilar and basilar reticular opacities are seen with some minimal hazy bibasilar opacities. These findings were noted to represent interstitial lung disease on the prior chest CT. No new interstitial airspace opacities in the lungs. Pleural spaces: No pleural effusion. No pneumothorax. Heart/Mediastinum: Mild prominence of the cardiac silhouette on this chest radiograph. There is a mildly tortuous thoracic aorta. Midline trachea. Bones/joints: No acute abnormalities. XR/XR chest 1V portable [id number] IMPRESSION: 1. Unchanged mild perihilar and basilar reticular opacities with some minimal hazy bibasilar opacities. These findings were noted to represent interstitial lung disease on the prior chest CT. No new interstitial airspace opacities in the lungs. 2. Mild prominence of the cardiac silhouette on this chest radiograph.
--- NOTE | 2022-09-09 11:37 | ECG_ITS ---
[facility] Test Date: 2022-09-09 Pat Name: Radha Henry Department: Room: Gender: Female Service Dispatcher: : 1965 Requested By: Adonis Witt Order Number: [id number] Go MD: Vahe Rowe M.D. Measurements Intervals [place] Rate: 76 P: 45 MI: 155 QRS: -3 QRSD: 104 T: 58 QT: 384 QTc: 433 Interpretive Statements SINUS RHYTHM Compared to ECG 08/15/2022 19:08:38 Left ventricular hypertrophy no longer present ST (T wave) deviation no longer present Myocardial infarct finding no longer present Electronically Signed On 09-09-2022 16:43:54 CAUSTIC OPERATOR by Vahe Rowe M.D. [email or web address]
--- NOTE | 2022-09-09 11:42 | W.ED.SOB ---
HPI - SOB/Dyspnea General: Chief Complaint: Shortness of Breath/Dyspnea Stated Complaint: SOB, ear pain Time Seen by Provider: 09/09/22 11:30 Source: patient Mode of arrival: ambulatory Limitations: no limitations History of Present Illness: HPI Narrative: See nursing assessment. Patient reports shortness of breath for approximately 3 weeks. She states she has a cough productive of yellow-green sputum. She denies any fever but has had chills. She states she is very fatigued and sleeps a lot last several days. She states she has a history of COPD but does not use supplemental oxygen. She states she does have a history of type 2 diabetes that is insulin-dependent. She also has a history of coronary disease. She denies any chest pain. She states she no longer smokes. She has had coronary stents in the past with last one in 2018. Triage nurse states patient had oxygen saturation of 82% when patient walked into the ER triage area. Presently patient has oxygen saturation of 93 to 95% at rest in the room on room air. Patient denies any peripheral edema. Associated symptoms: Deny abdominal pain, chest pain, fever(s), nausea, palpitations or vomiting Review of Systems Const: Reports: chills and fatigue; Denies: fever(s) Eyes: Denies: change in vision ENMT: Denies: throat pain Card: Denies: chest pain or palpitations Resp: Reports: dyspnea and productive cough (Yellow-green sputum); Denies: wheezing GI: Denies: abdominal pain, nausea or vomiting : Denies: flank pain Musc: Denies: neck pain or back pain Skin/Breast: Denies: rash or pruritus Neuro: Denies: headache(s) or numbness in extremities Psych: Denies: anxiety J Luis/Lymph: Denies: enlarged lymph nodes PFS ED PFSH: Medical History ASHD (arteriosclerotic heart disease) Stents placed Charcot's joint of left foot CKD (chronic kidney disease) stage 3, GFR 30-59 ml/min Combined pulmonary fibrosis and emphysema (CPFE) COVID-19 vaccine series completed COVID Test positive on 05/02/2021. Extensor tendon ligament laxity of hand GERD (gastroesophageal reflux disease) Hammer toes, bilateral Hyperlipidemia Hypertension with albuminuria Increased thyroid stimulating hormone (TSH) level Obesity (BMI 35.0-39.9 without comorbidity) Onychodystrophy Onychomycosis Osteoarthritis (arthritis due to wear and tear of joints) PAD (peripheral artery disease) Type 2 diabetes mellitus with diabetic polyneuropathy URI with cough and congestion Surgical History H/O tubal ligation Hx of cholecystectomy Hx of heart artery stent Family History Mother Diabetes Heart disease Denies family history of CAD (coronary artery disease) Clotting disorder Dementia Hyperlipidemia Psychiatric illness Chronic kidney disease (CKD) Suicide Anesthesia complication Bleeding disorder Family history of premature coronary artery disease Lung disease Cancer Hypertension Stroke Social History Smoking and tobacco status: never smoked Quit status (tobacco): has quit using tobacco Year quit tobacco: 9 years ago Alcohol intake: never Physical Exam Const: COMMON NORMALS: patient oriented x3, no limitations and well nourished GENERAL APPEARANCE: cooperative OTHER: Mild dyspnea HENMT: COMMON NORMALS: normocephalic and atraumatic HEAD & SCALP: normocephalic and atraumatic FACE & SINUS: normal facial exam Eye: COMMON NORMALS: EOMs intact bilaterally Neck/C-Spine: COMMON NORMALS: full ROM, no lymphadenopathy, supple and no meningeal signs GENERAL: Yes normal visual inspection Lymph: LYMPHATIC: no lymphadenopathy noted Chest: COMMONS NORMALS: normal inspection of the chest and normal palpation of entire chest wall CHEST: No Ecchymosis present and No rash Resp: OTHER: Mild dyspnea. Patient has few rhonchi and x-ray wheezes in the bases posteriorly bilaterally. Otherwise lungs are clear. Cardio: COMMON NORMALS: regular rate, regular rhythm and Peripheral pulses 2+ throughout JUGULAR VENOUS DISTENTION: no JVD RATE: regular rate RHYTHM: regular rhythm PERIPHERAL PULSES: Peripheral pulses 2+ throughout GI: COMMON NORMALS: Normal to inspection, nondistended, normoactive bowel sounds present and non-tender OTHER: Obese : COMMON NORMALS: Yes no CVA tenderness BLADDER/KIDNEY EXAM: Yes no CVA tenderness Back/Pelvis: COMMON NORMALS: no CVA tenderness Extremity: COMMON NORMALS: normal to inspection, full ROM and capillary refill normal Neuro: COMMON NORMALS: patient oriented x3, CN's II-XII intact bilaterally, no focal motor deficits and no sensory deficits noted MENINGEAL SIGNS: Yes no meningeal signs Psych: COMMON NORMALS: mental status grossly normal and Normal thought process present THOUGHT PROCESS: Normal thought process present Skin: COMMON NORMALS: no rashes or lesions noted and no wounds GENERAL SKIN EXAM: no rashes or lesions noted Course Vital Signs: Vital signs: Vital Signs Temperature 99.4 F 09/09/22 11:24 Pulse Rate 60 09/09/22 14:59 Respiratory Rate 22 H 09/09/22 11:51 Blood Pressure 154/58 09/09/22 14:59 Pulse Oximetry 95 09/09/22 14:59 Oxygen Delivery Me thod 09/09/22 11:51 MDM - SOB/Dyspnea Medical Decision Making COPD exacerbation. Possible community-acquired pneumonia, possible chronic bronchitis, possible CHF 1245: Troponin slightly elevated. BNP is approximately 6300. Will give patient a small dose of Lasix to see if this helps her breathing. Patient may have a component of CHF. Patient does have a history of coronary disease with stents in the past. 1445: Lab states respiratory panel will take another hour. Patient was reassessed and updated on delay. Patient states her breathing is much improved now. She denies any shortness of breath now. Troponin has decreased. 1550: Discussed with hospitalist Dr. Eastman. He will place patient in observation to telemetry Lab Data 09/09/22 11:53 09/09/22 11:53 Labs/Radiology: Laboratory Results WBC 11.4 10^3/uL (4.0-10.0) H 09/09/22 11:53 RBC 3.73 10^6/uL (4.1-5.3) L 09/09/22 11:53 Hgb 10.7 g/dL (11.5-15.3) L 09/09/22 11:53 Hct 33.6 % (37.0-47.0) L 09/09/22 11:53 MCV 90.1 fl (81-99) 09/09/22 11:53 MCH 28.7 pg (28.0-34.0) 09/09/22 11:53 MCHC 31.8 g/dL (30.0-36.0) 09/09/22 11:53 RDW 12.7 % (12.1-15.1) 09/09/22 11:53 Plt Count 315 10^3/cmm (130-400) 09/09/22 11:53 MPV 10.6 fL (7.4-10.4) H 09/09/22 11:53 Neut % (Auto) 77.1 % 09/09/22 11:53 Lymph % (Auto) 12.6 % 09/09/22 11:53 [place] % (Auto) 8.3 % 09/09/22 11:53 Eos % (Auto) 1.2 % 09/09/22 11:53 Baso % (Auto) 0.4 % 09/09/22 11:53 Neut # (Auto) 8.79 10^3/uL (1.8-7.7) H 09/09/22 11:53 Lymph # (Auto) 1.4 10^3/uL (0.8-4.8) 09/09/22 11:53 [place] # (Auto) 1.0 10^3/uL (0.2-0.9) H 09/09/22 11:53 Eos # (Auto) 0.1 10^3/uL (0.0-0.8) 09/09/22 11:53 Baso # (Auto) 0.0 10^3/uL (0.0-0.1) 09/09/22 11:53 Nucleated RBC % (auto) 0 % 09/09/22 11:53 Nucleated RBCs # 0.0 /100WBC 09/09/22 11:53 Sodium 135 mmol/L (136-145) L 09/09/22 11:53 Potassium 4.8 mmol/L (3.5-5.1) 09/09/22 11:53 Chloride 100 mmol/L (98-107) 09/09/22 11:53 Carbon Dioxide 26 mmol/L (22-29) 09/09/22 11:53 Anion Gap 13.8 (5-19) 09/09/22 11:53 BUN 18 mg/dL (6-20) 09/09/22 11:53 Creatinine 1.1 mg/dL (0.5-0.9) H 09/09/22 11:53 GFR Calculation 51.2 mL/min (90-130) L 09/09/22 11:53 Glucose 302 mg/dL (65-115) H 09/09/22 11:53 Calculated Osmolality 293 mOsm/kg (285-295) 09/09/22 11:53 Lactic Acid 1.1 mmol/L (0.5-2.2) 09/09/22 11:53 Calcium 8.5 mg/dL (8.5-10.5) 09/09/22 11:53 Troponin T Baseline 29 ng/L (0-10) H 09/09/22 11:53 Troponin T 120 Minute 28.46 ng/L (0-10) H 09/09/22 13:36 Delta Troponin T -0.54 ABS# (0-10) L 09/09/22 13:36 NT-Pro-B Natriuret Pep 6359 pg/mL (0-125) H 09/09/22 11:53 Nasal Influ A H1 2008 PCR Not detected (NOT DETECT) 09/09/22 12:17 Adenovirus (PCR) Not detected (NOT DETECT) 09/09/22 12:17 C. pneumoniae DNA (PCR) Not detected (NOT DETECT) 09/09/22 12:17 Coronavirus 229E (PCR) Not detected (NOT DETECT) 09/09/22 12:17 Human Metapneumovir PCR Not detected (NOT DETECT) 09/09/22 12:17 Influenza A (H1) PCR Not detected (NOT DETECT) 09/09/22 12:17 Influenza A (H3) PCR Not detected (NOT DETECT) 09/09/22 12:17 Influenza Type A (PCR) Not detected (NOT DETECT) 09/09/22 12:17 Influenza Type B (PCR) Not detected (NOT DETECT) 09/09/22 12:17 M. pneumoniae (PCR) Not detected (NOT DETECT) 09/09/22 12:17 Parainfluenza 1 (PCR) Not detected (NOT DETECT) 09/09/22 12:17 Parainfluenza 2 (PCR) Not detected (NOT DETECT) 09/09/22 12:17 Parainfluenza 3 (PCR) Not detected (NOT DETECT) 09/09/22 12:17 Parainfluenza 4 (PCR) Not detected (NOT DETECT) 09/09/22 12:17 RSV Type A (PCR) Not detected (NOT DETECT) 09/09/22 12:17 RSV Type B (PCR) Not detected (NOT DETECT) 09/09/22 12:17 Entero/Rhino (PCR) Not detected (NOT DETECT) 09/09/22 12:17 SARS-CoV-2 (PCR) Not detected (NOT DETECT) 09/09/22 12:17 Imaging Data CXR: My impression: Chronic scarring/fibrotic changes in the bases of the lungs bilaterally. Unsure if there is new infiltrate or not in either lung base. Chest x-ray from 08/15/2022 shows similar pattern. See report below. Left lower lobe appears more congested than previous exams. EKG Data EKG 1: I personally reviewed and interpreted this EKG as follows: EKG Interpretation Date: 09/09/22 EKG interpretation time: 11:54 Interpretation: Impression normal sinus rhythm with heart rate of 76. Normal ST segment. Normal QRS. Normal AL interval, normal QT interval normal P waves normal T waves. Normal axis. Normal EKG Other Data cxr 08/15/22: PROCEDURE INFORMATION: Exam: XR Chest Exam date and time: 08/15/2022 5:55 PM Age: 57 years old Clinical indication: Shortness of breath TECHNIQUE: Imaging protocol: Radiologic exam of the chest. Views: 2 views. COMPARISON: CR XR chest 1V portable [id number] 11/07/2021 8:10 PM FINDINGS: Lungs: Reticular changes of interstitium likely representing widespread interstitial fibrotic lung disease. No consolidation. Pleural spaces: Unremarkable. No pleural effusion. No pneumothorax. Heart/Mediastinum: Mild cardiomegaly. Bones/joints: Unremarkable. XR/XR chest 2V* [id number] IMPRESSION: No focal acute pulmonary disease identified. ? Dictated By: Vahe Rodgers Signed By: Vahe Rodgers Signed Date/Time: 08/15/221826 Discharge Plan Discharge Patient Disposition: Placed in Observation Clinical Impression: Acute exacerbation of chronic obstructive airways disease Community acquired pneumonia Qualifiers: Laterality: left Lung location: lower lobe of lung Qualified Code(s): J18.9 - Pneumonia, unspecified organism Congestive heart failure Qualifiers: Heart failure type: diastolic Heart failure chronicity: acute Qualified Code(s): I50.31 - Acute diastolic (congestive) heart failure Coding Level of Care Code ED Foundry Worker General for Chg Fwd Exam Comprehensive Medical Decision Making Moderate Complexity
[2022-09-09] MEDS: albuterol 8 gm MDI 2 PUFF INHALATION (11:50)
[2022-09-09 12:10] LABS: Basophils % 0.4 %; Eosinophils # 0.1 10^3/uL (0.0-0.8); Eosinophils % 1.2 %; Hematocrit 33.6 % (37.0-47.0); Hemoglobin 10.7 g/dL (11.5-15.3); Lymphocytes # 1.4 10^3/uL (0.8-4.8); Lymphocytes % 12.6 %; Mean Corpuscular HGB Conc 31.8 g/dL (30.0-36.0); Mean Corpuscular Hemoglobin 28.7 pg (28.0-34.0); Mean Corpuscular Volume 90.1 fl (81-99); Mean Platelet Volume 10.6 fL (7.4-10.4); Monocytes % 8.3 %; Neutrophils # 8.79 10^3/uL (1.8-7.7); Neutrophils % 77.1 %; Nucleated Red Blood Cells % 0 %; Platelet Count 315 10^3/cmm (130-400); Red Blood Count 3.73 10^6/uL (4.1-5.3); Red Cell Distribution Width 12.7 % (12.1-15.1); White Blood Count 11.4 10^3/uL (4.0-10.0)
[2022-09-09 12:33] LABS: Lactic Sepsis W/Reflex 1.1 mmol/L (0.5-2.2)
[2022-09-09 12:36] LABS: Troponin(5th) Baseline 29 ng/L (0-10)
[2022-09-09 12:44] LABS: Anion Gap 13.8 (5-19); Blood Urea Nitrogen 18 mg/dL (6-20); Calcium 8.5 mg/dL (8.5-10.5); Carbon Dioxide 26 mmol/L (22-29); Chloride 100 mmol/L (98-107); Glomerular Filtration Rate 51.2 mL/min (90-130); Glucose 302 mg/dL (65-115); NT Pro B Type Natriuretic Pept 6359 pg/mL (0-125); Osmolality Calculated 293 mOsm/kg (285-295); Potassium 4.8 mmol/L (3.5-5.1); Sodium 135 mmol/L (136-145)
--- NOTE | 2022-09-09 13:07 | PC.NURSE ---
called lab for blood cultures. abx admin pending blood draw completion
[2022-09-09] MEDS: FUROsemide 10 mg/mL SDV 2mL 20 MG IVP (13:11)
[2022-09-09] MEDS: levofloxacin-dextrose 5 % 750 MG/150 ML PREMIX 100 MG IV (13:48)
[2022-09-09 14:18] LABS: Troponin 5 2HR 28.46 ng/L (0-10)
[2022-09-09 14:25] LABS: Troponin 5 2HR Delta -0.54 ABS# (0-10)
[2022-09-09 15:44] LABS: Adenovirus Not Detected (NOT DETECT); Chlamydia Pneumoniae Not Detected (NOT DETECT); Coronavirus 229E,HKU1,NL63,OC4 Not Detected (NOT DETECT); Human Metapneumovirus Not Detected (NOT DETECT); Human Rhinovirus/Enterovirus Not Detected (NOT DETECT); Influenza A Not Detected (NOT DETECT); Influenza A H1 Not Detected (NOT DETECT); Influenza A H1-2009 Not Detected (NOT DETECT); Influenza A H3 Not Detected (NOT DETECT); Influenza B Not Detected (NOT DETECT); Mycoplasma Pneumoniae Not Detected (NOT DETECT); Parainfluenza Virus Type 1 Not Detected (NOT DETECT); Parainfluenza Virus Type 2 Not Detected (NOT DETECT); Parainfluenza Virus Type 3 Not Detected (NOT DETECT); Parainfluenza Virus Type 4 Not Detected (NOT DETECT); Respiratory Syncytial Virus A Not Detected (NOT DETECT); Respiratory Syncytial Virus B Not Detected (NOT DETECT); SARS-COV-2 Not Detected (NOT DETECT)
[2022-09-09 16:27] LABS: Glucose Point of Care 283 mg/dL (70-110)
--- NOTE | 2022-09-09 17:02 | PC.NURSE ---
Report called to LESLIE Sung on Med Surg
--- NOTE | 2022-09-09 17:57 | P.HP_ITS ---
Providers/Chief Complaint Admitting Physician: Inocencio Eastman MD Primary Care Provider: Cameron Frost MD Chief Complaint: SOB, ear pain History of Present Illness Radha Henry is a 57 year old female past medical history of hypertension diabetes dyslipidemia morbid obesity, came in with chief complaint of worsening shortness of breath, associated with cough with productive greenish sputum, going on for the last 1 to 2 weeks, initially she has received treatment for bronchitis, she was on Z-Parvez, but failed to improve.She was also complaining of intermittent fever with chills Going on for the last 1 week. X-ray chest done in the ER showed: Pertinent labs: WBC 11.4, H&H PLT : 315 , serum sodium 135 , serum potassium 4.8, BUN and serum creatinine 18 and 1.1, Troponin trend : Unremarkable, proBNP:[id number] Respiratory viral panel negative Received 20 Lasix IV in the ER, as well as levofloxacin, and Solu-Medrol. Review of Systems General: Reports: 10 or more systems reviewed and unremarkable except in HPI and below Const: Reports: fever(s) and chills; Denies: body aches, change in appetite or diaphoresis Card: Denies: palpitations, edema, swelling of feet/ankles, dyspnea on exertion, orthopnea or leg pain with exertion Resp: Reports: dyspnea and productive cough; Denies: wheezing or pain on inspiration GI: Denies: abdominal pain, nausea, vomiting, diarrhea or constipation : Denies: flank pain Musc: Denies: back pain, extremity pain or extremity swelling Neuro: Denies: headache(s), difficulty walking or confusion Medications/Allergies Home Medications Medication Instructions Recorded Confirmed Last Taken Type cpap mask and tubing #1 ea 04/22/20 09/09/22 Unknown Rx glucometer #1 ea 06/09/20 09/09/22 Unknown Rx aspirin 81 mg tablet,delayed 81 mg PO DAILY #90 tabs 07/15/20 09/09/22 09/08/22 Rx release cetirizine 10 mg tablet 10 mg PO DAILY allergy symptoms 90 09/09/21 09/09/22 09/08/22 Rx days #90 tabs fluticasone 250 mcg-salmeterol 50 1 inh inhalation BID SOB and COPD 11/10/21 09/09/22 Unknown Rx mcg/dose blistr powdr for #60 ea inhalation (Advair Diskus) insulin detemir U-100 100 unit/mL See Rx Instructions .Route 06/15/22 09/09/22 09/08/22 Rx (3 mL) subcutaneous pen (Levemir .COMPLEX #15 mL FlexTouch U-100 Insulin) Diabetic Shoes with 3 pairs of #1 ea 07/05/22 09/09/22 Unknown Rx inserts 3 inserts for diabetic shoes #1 ea 07/20/22 09/09/22 Unknown Rx Custom Molded Accommodative #1 ea 07/20/22 09/09/22 Unknown Rx Orthotics Diabetic Shoes #1 ea 07/20/22 09/09/22 Unknown Rx albuterol sulfate 90 mcg/actuation 1 inh inhalation QID PRN Shortness 08/23/22 09/09/22 Unknown Rx aerosol inhaler (ProAir HFA) Of Breath #6.7 grams benzonatate 200 mg capsule 200 mg PO TID PRN cough #20 caps 09/01/22 09/09/22 Unknown Rx atorvastatin 10 mg tablet 10 mg PO DAILY 09/09/22 09/09/22 09/08/22 History clopidogrel 75 mg tablet 75 mg PO DAILY 09/09/22 09/09/22 09/08/22 History hydrochlorothiazide 25 mg tablet 25 mg PO DAILY 09/09/22 09/09/22 09/08/22 History losartan 50 mg tablet 50 mg PO DAILY 09/09/22 09/09/22 09/08/22 History meclizine 25 mg tablet 25 mg PO Q8H PRN dizziness 09/09/22 09/09/22 Unknown History pantoprazole 20 mg tablet,delayed 20 mg PO DAILY 09/09/22 09/09/22 09/08/22 History release Allergies Allergy/AdvReac Type Severity Reaction Status Date / Time metformin AdvReac Mild ADR-Diarrhe Verified 08/30/22 10:22 a PFSH Acute PFSH: Medical History (Updated 09/09/22 @ 15:55 by Adonis Echevarria MD) ASHD (arteriosclerotic heart disease) Stents placed Charcot's joint of left foot CKD (chronic kidney disease) stage 3, GFR 30-59 ml/min Combined pulmonary fibrosis and emphysema (CPFE) COVID-19 vaccine series completed COVID Test positive on 05/02/2021. Extensor tendon ligament laxity of hand GERD (gastroesophageal reflux disease) Hammer toes, bilateral Hyperlipidemia Hypertension with albuminuria Increased thyroid stimulating hormone (TSH) level Obesity (BMI 35.0-39.9 without comorbidity) Onychodystrophy Onychomycosis Osteoarthritis (arthritis due to wear and tear of joints) PAD (peripheral artery disease) Type 2 diabetes mellitus with diabetic polyneuropathy URI with cough and congestion Surgical History H/O tubal ligation Hx of cholecystectomy Hx of heart artery stent Family History Mother Diabetes Heart disease Denies family history of CAD (coronary artery disease) Clotting disorder Dementia Hyperlipidemia Psychiatric illness Chronic kidney disease (CKD) Suicide Anesthesia complication Bleeding disorder Family history of premature coronary artery disease Lung disease Cancer Hypertension Stroke Social History Smoking and tobacco status: never smoked Quit status (tobacco): has quit using tobacco Year quit tobacco: 9 years ago Alcohol intake: never Vitals/I&O/Wt Last Vital Signs Temp 97.5 F L 09/09/22 17:33 Pulse 69 09/09/22 17:33 Resp 16 09/09/22 17:33 BP 107/67 09/09/22 17:33 Pulse Ox 91 09/09/22 17:33 O2 Del Method 09/09/22 17:33 09/09/22 09/09/22 09/09/22 06:59 14:59 22:59 Intake Total 150 / 150 Balance 150 / 150 Weight last 48 hrs Weight 90.718 kg Physical Exam Const: COMMON NORMALS: patient oriented x3 Resp: OTHER: Left lower fine inspiratory crackles lobe crackles present, rest clear Cardio: COMMON NORMALS: regular rate, regular rhythm, S1 normal heart sound present, S2 normal heart sound present, No gallops present (Cardio), No murmurs present (Cardio), No rub (Cardio) and Peripheral pulses 2+ throughout RATE: regular rate RHYTHM: regular rhythm HEART SOUNDS: S1 normal heart sound present and S2 normal heart sound present PERIPHERAL PULSES: Peripheral pulses 2+ throughout GI: COMMON NORMALS: Normal to inspection, nondistended, normoactive bowel sounds present, Soft to palpation, non-tender, No hepatosplenomegaly present and no masses AUSCULTATION: Yes normoactive bowel sounds PALPATION: Yes Soft to palpation and Yes No hepatosplenomegaly present RECTAL EXAM: deferred Extremity: COMMON NORMALS: no clubbing, cyanosis or edema and no pedal edema Data 09/09/22 11:53 09/09/22 11:53 Micro: Microbiology 09/09/22 13:44 Blood Culture - Preliminary Blood SPECIMEN COLLECTED 09/09/22 13:36 Blood Culture - Preliminary Blood SPECIMEN COLLECTED A&P Assessment and plan (1) Community acquired pneumonia: Qualifiers: Laterality: left Lung location: lower lobe of lung Qualified Code(s): J18.9 - Pneumonia, unspecified organism (2) Type 2 diabetes mellitus with diabetic polyneuropathy: Qualifiers: Diabetes mellitus ferry terminal agent insulin use: with retirement use Qualified Code(s): E11.42 - Type 2 diabetes mellitus with diabetic polyneuropathy; 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 (3) KYLE (obstructive sleep apnea): (4) Hypertension with albuminuria: (5) CKD (chronic kidney disease) stage 3, GFR 30-59 ml/min: (6) Obesity (BMI 35.0-39.9 without comorbidity): (7) Combined pulmonary fibrosis and emphysema (CPFE): Plan 57 year old female past medical history of hypertension diabetes dyslipidemia morbid obesity, came in with chief complaint of worsening shortness of breath, associated with cough with productive greenish sputum, going on for the last 1 to 2 weeks, initially she has received treatment for bronchitis, she was on Z- Parvez, but failed to improve.She was also complaining of intermittent fever with chills Going on for the last 1 week. Assessment: Community-acquired pneumonia History of Advanced interstitial pulmonary fibrosis Hypertension Diabetes Dyslipidemia Morbid obesity Plan: Follow 2D echo Follow sputum gram stain and culture Urine Legionella antigen Bacterial antigen panel Procalcitonin Continue ceftriaxone azithromycin Continue Lantus/sliding scale insulin, monitor fingerstick glucose, awaiting diet Continue home inhalers CODE STATUS: Full code DVT prophylaxis: On Lovenox Attestations Medical Necessity Statement*: Needs to be in hospital for management of pneumonia. Coding Level of Care Code Acute Hospital Pharmacy Technician for [facility] Diagnoses Community acquired pneumonia J18.9 Laterality: left Lung location: lower lobe of lung Type 2 diabetes mellitus with diabetic polyneuropathy E11.42; Z79.4 Diabetes mellitus ferry terminal agent insulin use: with retirement use KYLE (obstructive sleep apnea) G47.33 Hypertension with albuminuria I10; R80.9 CKD (chronic kidney disease) stage 3, GFR 30-59 ml/min N18.3 Obesity (BMI 35.0-39.9 without comorbidity) E66.9 Combined pulmonary fibrosis and emphysema (CPFE) J43.9; J84.10
[2022-09-09] MEDS: insulin lispro 100 unit/1 mL SUBCUT ×2 (18:25→21:32)
[2022-09-09] MEDS: enoxaparin 40 mg/0.4 mL Syringe SUBCUT (18:26)
[2022-09-09] MEDS: azithromycin 500 MG in sodium chloride 0.9% 250 ML 250 MG IV (18:26)
[2022-09-09] MEDS: budesonide 0.5 mg/2 mL Neb INHALATION (21:11)
[2022-09-09] MEDS: albuterol 2.5 mg/3 mL Neb INHALATION (21:11)
[2022-09-09 21:30] LABS: Glucose Point of Care 365 mg/dL (70-110)
[2022-09-09] MEDS: insulin glargine 100 units/1 mL 30 UNIT SUBCUT (21:32)
--- NOTE | 2022-09-09 21:56 | PC.NURSE ---
RT seen and assessed pt. Pt hypoxic at this time, O2 added @ 2 l/m via n/c. Saturation maintained > 90%.
[2022-09-10] VITALS (9 sets, daily range): BP systolic 95–147; BP diastolic 59–82; PULSE 68–84; RESP 15–22; TEMP 36.4–36.5; O2SAT 94–97
[2022-09-10] MEDS: cefTRIAXone 1,000 MG in sodium chloride 0.9% (plus) 50 ML 100 MG IV (05:00)
--- NOTE | 2022-09-10 05:24 | PC.NURSE ---
18G IV infiltrated at this time. IV catheter removed w/tip intact, and pressure drsg applied. 22G IV restart attempt x 2, unsuccessful. To have another RN attempt IV.
--- NOTE | 2022-09-10 06:00 | USCV_ITS ---
Radha Henry Age: 57 Gender: F : 1965 Exam Date: 09/10/2022 10:18 Ordering Phys: Inocencio Eastman MD Technologist: SAAD Exam Location: [facility] [place] Indication: SOB BP: 147 / 82 HR: 80 Rhythm: Sinus Technical Quality: Suboptimal MEASUREMENTS (Male / Female) Normal Values 2D ECHO LV Diastolic Diameter PLAX 4.9 cm 4.2 - 5.9 / 3.9 - 5.3 cm LV Systolic Diameter PLAX 3.9 cm IVS Diastolic Thickness 0.7 cm 0.6 - 1.0 / 0.6 - 0.9 cm IVS Systolic Thickness 0.9 cm LVPW Diastolic Thickness 0.7 cm 0.6 - 1.0 / 0.6 - 0.9 cm LVPW Systolic Thickness 0.9 cm LVOT Diameter 2.0 cm LV Ejection Fraction 2D Teich 41.3 % LV Ejection Fraction MOD 2C 62.4 % LV Ejection Fraction 2C AL 63.0 % LA Diameter 3.7 cm IVC Diameter 2.0 cm M-MODE Aortic Annulus Diameter 2.7 cm LA Ao Ratio MM 1.6 DOPPLER AV Peak Velocity 121.0 cm/s LVOT Peak Velocity 117.0 cm/s AV Area Cont Eq vti 2.9 cm squared AV Area Cont Eq pk 2.9 cm squared MV Area PHT 4.6 cm squared Mitral E to A Ratio 0.8 MV E' Velocity 34.2 cm/s Mitral E to MV E' Ratio 11.9 Mitral E to LV E' Lateral Ratio 9.7 Mitral E to LV E' Septal Ratio 15.3 TV Peak E Velocity 53.0 cm/s PV Peak Velocity 139.0 cm/s FINDINGS Left Ventricle Normal left ventricular size, systolic function and wall thickness, with no regional wall motion abnormalities. Grade I/IV diastolic dysfunction (abnormal relaxation filling pattern), normal to mildly elevated filling pressures. Left ventricular ejection fraction is estimated at 60%. Right Ventricle Normal right ventricular size and systolic function. Right Atrium The right atrium is normal in size. Left Atrium The left atrium is normal in size. Mitral Valve Structurally normal mitral valve without significant stenosis or prolapse. There is no mitral regurgitation. Aortic Valve Structurally normal aortic valve without significant sclerosis or stenosis. There is no aortic regurgitation. Tricuspid Valve Structurally normal tricuspid valve without significant stenosis or regurgitation. Pulmonary artery systolic pressure is normal. Pulmonic Valve Pulmonic valve not well visualized. Pericardium Normal pericardium without effusion. Aorta Normal ascending aorta dimension. IVC Inferior vena cava not visualized. CONCLUSIONS Normal left ventricular size, systolic function and wall thickness, with no regional wall motion abnormalities. Grade I/IV diastolic dysfunction (abnormal relaxation filling pattern), normal to mildly elevated filling pressures. Left ventricular ejection fraction is estimated at 60%. Previous echoes dated 02/23/2016 and 06/15/2018 are similar in nature. There has been no change. Dr. Vahe Rowe MD (Electronically Signed) Final Date: 10 September 2022 12:50 S
[2022-09-10 06:09] LABS: Basophils % 0.1 %; Hematocrit 35.4 % (37.0-47.0); Hemoglobin 10.9 g/dL (11.5-15.3); Lymphocytes # 0.7 10^3/uL (0.8-4.8); Lymphocytes % 8.2 %; Mean Corpuscular HGB Conc 30.8 g/dL (30.0-36.0); Mean Corpuscular Hemoglobin 28.8 pg (28.0-34.0); Mean Corpuscular Volume 93.4 fl (81-99); Monocytes # 0.4 10^3/uL (0.2-0.9); Monocytes % 4.9 %; Neutrophils # 7.01 10^3/uL (1.8-7.7); Neutrophils % 86.3 %; Nucleated Red Blood Cells % 0 %; Platelet Count 292 10^3/cmm (130-400); Red Blood Count 3.79 10^6/uL (4.1-5.3); Red Cell Distribution Width 12.5 % (12.1-15.1); White Blood Count 8.1 10^3/uL (4.0-10.0)
[2022-09-10 06:34] LABS: Glucose Point of Care 277 mg/dL (70-110)
[2022-09-10] MEDS: budesonide 0.5 mg/2 mL Neb INHALATION (07:42)
[2022-09-10] MEDS: albuterol 2.5 mg/3 mL Neb INHALATION ×2 (07:42→11:31)
[2022-09-10] MEDS: pantoprazole DR 40 mg Tablet 20 MG PO (08:57)
[2022-09-10] MEDS: insulin lispro 100 unit/1 mL SUBCUT ×2 (08:57→11:47)
[2022-09-10] MEDS: atorvastatin 40 mg Tablet 20 MG PO (08:57)
[2022-09-10] MEDS: clopidogrel 75 mg Tablet PO (08:57)
[2022-09-10] MEDS: aspirin 81 mg EC Tablet PO (08:57)
[2022-09-10 09:47] LABS: Anion Gap 16.8 (5-19); Blood Urea Nitrogen 25 mg/dL (6-20); Calcium 8.8 mg/dL (8.5-10.5); Carbon Dioxide 21 mmol/L (22-29); Chloride 97 mmol/L (98-107); Glomerular Filtration Rate 46.3 mL/min (90-130); Glucose 304 mg/dL (65-115); Magnesium 1.5 mg/dL (1.7-2.3); Osmolality Calculated 288 mOsm/kg (285-295); Potassium 3.8 mmol/L (3.5-5.1); Sodium 131 mmol/L (136-145)
[2022-09-10 09:51] LABS: Procalcitonin 0.07 ng/mL (0-0.5)
[2022-09-10] MEDS: FUROsemide 40 mg Tablet PO (10:17)
[2022-09-10] MEDS: losartan 50 mg Tablet PO (10:17)
[2022-09-10 11:09] LABS: Glucose Point of Care 369 mg/dL (70-110)
--- NOTE | 2022-09-10 11:25 | PM.DCS ---
Discharge Providers Date of Admission: 09/09/22 15:55 Date of Discharge: September 10, 2022 Attending Provider at Admission: Inocencio Eastman MD Attending Provider at Discharge: Inocencio Eastman MD Primary Care Provider: Cameron Frost MD Diagnoses at Discharge Discharge Diagnosis (1) Community acquired pneumonia: Status: Acute Qualifiers: Laterality: left Lung location: lower lobe of lung Qualified Code(s): J18.9 - Pneumonia, unspecified organism (2) Type 2 diabetes mellitus with diabetic polyneuropathy: Status: Acute Qualifiers: Diabetes mellitus senior living insulin use: with vermin exterminator use Qualified Code(s): E11.42 - Type 2 diabetes mellitus with diabetic polyneuropathy; Z79.4 - custodial (current) use of insulin (3) KYLE (obstructive sleep apnea): Status: Acute (4) Hypertension with albuminuria: Status: Acute (5) CKD (chronic kidney disease) stage 3, GFR 30-59 ml/min: Status: Acute (6) Obesity (BMI 35.0-39.9 without comorbidity): Status: Acute (7) Combined pulmonary fibrosis and emphysema (CPFE): Status: Acute Reason for Visit Reason for Visit: SOB, ear pain Hospital Course Hospital Course 57 year old female past medical history of hypertension diabetes dyslipidemia morbid obesity, came in with chief complaint of worsening shortness of breath, associated with cough with productive greenish sputum, going on for the last 1 to 2 weeks, initially she has received treatment for bronchitis, she was on Z-Parvez, but failed to improve.She was also complaining of intermittent fever with chills. X-ray chest done in the ER: Showed chronic changes, she was admitted for the management of community-acquired pneumonia, He was kept on IV antibiotics, nebs, blood cultures were negative at the time of discharge, urinary antigen was negative bacterial antigen panel was negative, procalcitonin was normal, respiratory viral panel was negative, she had good improvement with IV antibiotic, by the time of discharge she was feeling significantly better. She was discharged on p.o. Augmentin as well as doxycycline to complete 7-day course of antibiotics. She has underlying advanced interstitial pulmonary fibrosis, for which she will need pulmonary follow-up, to see if she qualifies for any new or antifibrotic medications.2D echo done during the hospital stay: Showed: LV size and systolic function and wall motion thickness normal WMA grade 1 diastolic dysfunction, no gross valvular abnormality, LVEF 60%. Overall patient responded well to above medical management she was discharged home in stable condition. She will follow PCP as well as pulmonary as outpatient. Physical Exam Const: COMMON NORMALS: patient oriented x3 Resp: OTHER: Fine Velcro-like crackles present in both the lungs mccain. Cardio: COMMON NORMALS: regular rate, regular rhythm, S1 normal heart sound present, S2 normal heart sound present, No gallops present (Cardio), No murmurs present (Cardio), No rub (Cardio) and Peripheral pulses 2+ throughout RATE: regular rate RHYTHM: regular rhythm HEART SOUNDS: S1 normal heart sound present and S2 normal heart sound present PERIPHERAL PULSES: Peripheral pulses 2+ throughout GI: COMMON NORMALS: Normal to inspection, nondistended, normoactive bowel sounds present, Soft to palpation, non-tender, No hepatosplenomegaly present and no masses AUSCULTATION: Yes normoactive bowel sounds PALPATION: Yes Soft to palpation and Yes No hepatosplenomegaly present RECTAL EXAM: deferred Extremity: COMMON NORMALS: no clubbing, cyanosis or edema and no pedal edema Neuro: COMMON NORMALS: patient oriented x3 Discharge Data Studies Completed and Pending Completed Studies During Hospitalization Category Date Time Status XR chest 1V portable [id number] Stat Exams 09/09/22 11:37 Completed Pending at discharge Category Date Time Status Bacterial Antigen AM LABS Lab 09/10/22 08:15 Received Basic Metabolic Panel AM LABS Lab 09/11/22 04:00 Ordered Basic Metabolic Panel AM LABS Lab 09/12/22 04:00 Ordered Blood Culture Stat Lab 09/09/22 13:44 Results Complete Blood Count w/Auto AM LABS Lab 09/11/22 04:00 Ordered Complete Blood Count w/Auto AM LABS Lab 09/12/22 04:00 Ordered Legionella Antigen STAT AM LABS Lab 09/10/22 08:15 Received Sputum Culture and Gram Stain Routine Lab 09/10/22 10:45 Uncollected CV. echo complete* [id number] Routine Ultrasound 09/10/22 06:00 Taken Radiology Impressions Chest X-Ray 09/09/22 11:37 IMPRESSION: 1. Unchanged mild perihilar and basilar reticular opacities with some minimal hazy bibasilar opacities. These findings were noted to represent interstitial lung disease on the prior chest CT. No new interstitial airspace opacities in the lungs. 2. Mild prominence of the cardiac silhouette on this chest radiograph. Laboratory Results WBC 8.1 10^3/uL (4.0-10.0) 09/10/22 05:40 RBC 3.79 10^6/uL (4.1-5.3) L 09/10/22 05:40 Hgb 10.9 g/dL (11.5-15.3) L 09/10/22 05:40 Hct 35.4 % (37.0-47.0) L 09/10/22 05:40 MCV 93.4 fl (81-99) 09/10/22 05:40 MCH 28.8 pg (28.0-34.0) 09/10/22 05:40 MCHC 30.8 g/dL (30.0-36.0) 09/10/22 05:40 RDW 12.5 % (12.1-15.1) 09/10/22 05:40 Plt Count 292 10^3/cmm (130-400) 09/10/22 05:40 MPV 11.0 fL (7.4-10.4) H 09/10/22 05:40 Neut % (Auto) 86.3 % 09/10/22 05:40 Lymph % (Auto) 8.2 % 09/10/22 05:40 [place] % (Auto) 4.9 % 09/10/22 05:40 Eos % (Auto) 0.0 % 09/10/22 05:40 Baso % (Auto) 0.1 % 09/10/22 05:40 Neut # (Auto) 7.01 10^3/uL (1.8-7.7) 09/10/22 05:40 Lymph # (Auto) 0.7 10^3/uL (0.8-4.8) L 09/10/22 05:40 [place] # (Auto) 0.4 10^3/uL (0.2-0.9) 09/10/22 05:40 Eos # (Auto) 0.0 10^3/uL (0.0-0.8) 09/10/22 05:40 Baso # (Auto) 0.0 10^3/uL (0.0-0.1) 09/10/22 05:40 Nucleated RBC % (auto) 0 % 09/10/22 05:40 Nucleated RBCs # 0.0 /100WBC 09/10/22 05:40 Sodium 131 mmol/L (136-145) L 09/10/22 09:11 Potassium 3.8 mmol/L (3.5-5.1) 09/10/22 09:11 Chloride 97 mmol/L (98-107) L 09/10/22 09:11 Carbon Dioxide 21 mmol/L (22-29) L 09/10/22 09:11 Anion Gap 16.8 (5-19) 09/10/22 09:11 BUN 25 mg/dL (6-20) H 09/10/22 09:11 Creatinine 1.2 mg/dL (0.5-0.9) H 09/10/22 09:11 GFR Calculation 46.3 mL/min (90-130) L 09/10/22 09:11 Glucose 304 mg/dL (65-115) H 09/10/22 09:11 POC Glucose 369 mg/dL (70-110) H 09/10/22 10:57 Calculated Osmolality 288 mOsm/kg (285-295) 09/10/22 09:11 Lactic Acid 1.1 mmol/L (0.5-2.2) 09/09/22 11:53 Calcium 8.8 mg/dL (8.5-10.5) 09/10/22 09:11 Magnesium 1.5 mg/dL (1.7-2.3) L 09/10/22 09:11 Troponin T Baseline 29 ng/L (0-10) H 09/09/22 11:53 Troponin T 120 Minute 28.46 ng/L (0-10) H 09/09/22 13:36 Delta Troponin T -0.54 ABS# (0-10) L 09/09/22 13:36 Troponin T Hi Sens 6Hr 25.40 ng/L (0-10) H 09/09/22 17:00 Troponin T Hi Sens 6Hr Delta -3.60 ng/L (0-12) L 09/09/22 17:00 NT-Pro-B Natriuret Pep 6359 pg/mL (0-125) H 09/09/22 11:53 Procalcitonin 0.07 ng/mL (0-0.5) 09/10/22 09:11 Nasal Influ A H1 2009 PCR Not detected (NOT DETECT) 09/09/22 12:17 Adenovirus (PCR) Not detected (NOT DETECT) 09/09/22 12:17 C. pneumoniae DNA (PCR) Not detected (NOT DETECT) 09/09/22 12:17 Coronavirus 229E (PCR) Not detected (NOT DETECT) 09/09/22 12:17 Human Metapneumovir PCR Not detected (NOT DETECT) 09/09/22 12:17 Influenza A (H1) PCR Not detected (NOT DETECT) 09/09/22 12:17 Influenza A (H3) PCR Not detected (NOT DETECT) 09/09/22 12:17 Influenza Type A (PCR) Not detected (NOT DETECT) 09/09/22 12:17 Influenza Type B (PCR) Not detected (NOT DETECT) 09/09/22 12:17 M. pneumoniae (PCR) Not detected (NOT DETECT) 09/09/22 12:17 Parainfluenza 1 (PCR) Not detected (NOT DETECT) 09/09/22 12:17 Parainfluenza 2 (PCR) Not detected (NOT DETECT) 09/09/22 12:17 Parainfluenza 3 (PCR) Not detected (NOT DETECT) 09/09/22 12:17 Parainfluenza 4 (PCR) Not detected (NOT DETECT) 09/09/22 12:17 RSV Type A (PCR) Not detected (NOT DETECT) 09/09/22 12:17 RSV Type B (PCR) Not detected (NOT DETECT) 09/09/22 12:17 Entero/Rhino (PCR) Not detected (NOT DETECT) 09/09/22 12:17 SARS-CoV-2 (PCR) Not detected (NOT DETECT) 09/09/22 12:17 Vitals Last Vital Signs Temp 97.6 F 09/10/22 07:49 Pulse 69 09/10/22 07:49 Resp 15 09/10/22 07:49 BP 138/79 09/10/22 10:17 Pulse Ox 97 09/10/22 07:49 O2 Del Method 09/10/22 07:49 O2 Flow Rate 1.5 09/10/22 08:00 Discharge Plan Discharge Patient Disposition: Home Condition: Stable Prescriptions: New doxycycline monohydrate 100 mg capsule 100 mg PO BID 7 Days Qty: 14 0RF Augmentin 500-125 mg tablet 1 tab PO BID 7 Days Qty: 14 0RF Continued fluticasone propion-salmeterol [Advair Diskus] 250-50 mcg/dose blister with device 1 inh inhalation BID Qty: 60 5RF ([facility] [place]) Diabetic Shoes with 3 pairs of inserts See Rx Instructions .ROUTE .MEDSUPPLY Qty: 1 0RF Rx Instructions: As directed by [employer] ([facility] [place]) cpap mask and tubing See Rx Instructions .Route .MEDSUPPLY Qty: 1 0RF Rx Instructions: FOR HOME, sutosubstitue formulary equivalent ([facility] [place]) glucometer See Rx Instructions .Route .MEDSUPPLY Qty: 1 0RF Rx Instructions: glucometer kit, check bs three times daily 100 strips 100 lancets aspirin 81 mg tablet,delayed release (DR/EC) 81 mg PO DAILY Qty: 90 3RF cetirizine 10 mg tablet 10 mg PO DAILY 90 Days Qty: 90 2RF Levemir FlexTouch U-100 Insuln 100 unit/mL (3 mL) insulin pen See Rx Instructions .ROUTE .COMPLEX Qty: 15 3RF Dose Instruction: INJECT 50 UNITS SUBCUTANEOUSLY EVERY DAY Rx Instructions: INJECT 50 UNITS SUBCUTANEOUSLY EVERY DAY ([facility] [place]) Diabetic shoes with 3 inserts See Rx Instructions .Route .MEDSUPPLY Qty: 1 0RF Rx Instructions: As directed HOME ([facility] [place]) Diabetic Shoes See Rx Instructions .Route .MEDSUPPLY Qty: 1 0RF Rx Instructions: As directed HOME ([facility] [place]) Custom Molded Accommodative Orthotics See Rx Instructions .Route .MEDSUPPLY Qty: 1 0RF Rx Instructions: As directed [employer] [place] albuterol sulfate [ProAir HFA] 90 mcg/actuation HFA aerosol inhaler 1 inh INHALATION QID PRN (Reason: Shortness Of Breath) Qty: 6.7 0RF losartan 50 mg tablet 50 mg PO DAILY atorvastatin 10 mg tablet 10 mg PO DAILY clopidogrel 75 mg tablet 75 mg PO DAILY pantoprazole 20 mg tablet,delayed release (DR/EC) 20 mg PO DAILY meclizine 25 mg tablet 25 mg PO Q8H PRN (Reason: dizziness) benzonatate 200 mg capsule 200 mg PO TID PRN (Reason: cough) 7 Days Qty: 20 0RF Held hydrochlorothiazide 25 mg tablet 25 mg PO DAILY Hold Instructions: Resume on 09/12/22. Discharge Orders: Discharge Order (Routine); Ordered 09/10/22 Ordered By: Inocencio Eastman Referrals: Datar,Antolin Doyle MD [Physician] - 1 month Cameron Frost MD [Primary Care Provider] - 7-10 days Patient Instructions: Doxycycline (By mouth), Amoxicillin/Clavulanate Potassium (By mouth), Heart Failure (DC), COPD (Chronic Obstructive Pulmonary Disease) (DC), Pneumonia (DC), Opioid Safety Discharge Attestations Time Spent in Discharge Care*: greater than 30 min Quality Metrics Clinical Quality Measures [ No reported AMI, CVA or VTE this stay] Coding Level of Care Code Acute Chg FW DC note Diagnoses Community acquired pneumonia J18.9 Laterality: left Lung location: lower lobe of lung Type 2 diabetes mellitus with diabetic polyneuropathy E11.42; Z79.4 Diabetes mellitus vermin exterminator insulin use: with vermin exterminator use KYLE (obstructive sleep apnea) G47.33 Hypertension with albuminuria I10; R80.9 CKD (chronic kidney disease) stage 3, GFR 30-59 ml/min N18.3 Obesity (BMI 35.0-39.9 without comorbidity) E66.9 Combined pulmonary fibrosis and emphysema (CPFE) J43.9; J84.10
== END 2022-09-10 13:45 | disposition home or self-care (01) ==
LOC: ER 16:02 → MEDSURG 17:16
PROVIDERS: Admitting Provider Internal Medicine; Emergency Provider Family Medicine; PCP Family Medicine Adult Medicine; Visit Provider Internal Medicine
DX: J18.9 Pneumonia, unspecified organism (principal); E11.42 Type 2 diabetes mellitus with diabetic polyneuropathy; Z79.4 Long term (current) use of insulin; G47.33 Obstructive sleep apnea (adult) (pediatric); R80.9 Proteinuria, unspecified; E66.01 Morbid (severe) obesity due to excess calories; Z68.35 Body mass index [BMI] 35.0-35.9, adult; E11.22 Type 2 diabetes mellitus with diabetic chronic kidney disease; I12.9 Hypertensive chronic kidney disease with stage 1 through stage 4 chronic kidney disease, or unspecified chronic kidney disease; N18.30 Chronic kidney disease, stage 3 unspecified; J43.9 Emphysema, unspecified; J84.10 Pulmonary fibrosis, unspecified; I25.10 Atherosclerotic heart disease of native coronary artery without angina pectoris; Z86.16 Personal history of COVID-19; E78.5 Hyperlipidemia, unspecified
CPT/HCPCS: 36415; 36416; 71045; 80048; 82962; 83605; 83735; 83880; 84145; 84484; 85025; 86403; 87040; 87449; 87486; 87581; 87633; 93005; 93306; 94640; 96365; 96372; 96375; 99285; G0378; J0456; J0696; J1650; J1815; J1940; J1956; J2930; J3535; J7050; J7613; J7626

== ENCOUNTER → 2022-09-11 10:09 | Outpatient (BNVA) | payer MEDICARE, SELFPAY | PROVIDERS: PCP Family Medicine Adult Medicine; Visit Provider Specialist | DX: M19.041 Primary osteoarthritis, right hand (principal); R20.2 Paresthesia of skin; M24.241 Disorder of ligament, right hand | CPT/HCPCS: 73130; 99203 ==

== ENCOUNTER → 2022-12-04 10:07 | Outpatient (BNVA) | payer MEDICARE, SELFPAY | PROVIDERS: PCP Family Medicine Adult Medicine; Referring Provider Specialist; Visit Provider Specialist | DX: G56.01 Carpal tunnel syndrome, right upper limb (principal); E11.42 Type 2 diabetes mellitus with diabetic polyneuropathy; Z79.4 Long term (current) use of insulin | CPT/HCPCS: 95908; 95910 ==

== ENCOUNTER → 2023-02-14 09:22 | Outpatient (BNVA) | payer MEDICARE, SELFPAY | PROVIDERS: PCP Family Medicine Adult Medicine; Visit Provider Specialist | DX: G56.01 Carpal tunnel syndrome, right upper limb (principal); M65.311 Trigger thumb, right thumb | CPT/HCPCS: 73110; 99214 ==

== ENCOUNTER → 2023-02-20 08:19 | Outpatient (BNVA) | payer MEDICARE, SELFPAY | PROVIDERS: PCP Family Medicine Adult Medicine; Visit Provider Nurse Practitioner Family | DX: Z09 Encounter for follow-up examination after completed treatment for conditions other than malignant neoplasm (principal) | CPT/HCPCS: 99213; A6212 ==

== ENCOUNTER 2023-02-23 06:18 | Day surgery (SDC) | payer MEDICARE, SELFPAY ==
[2023-02-22 09:02] VITALS: BMI 35.0
[2023-02-23] VITALS (10 sets, daily range): BP systolic 112–167; BP diastolic 63–87; PULSE 61–104; RESP 15–20; TEMP 36.2–36.6; O2SAT 95–100
--- NOTE | 2023-02-23 06:46 | P.HPUD_ITS ---
Surgery/Procedure H&P Update DATE OF PROCEDURE: February 23, 2023 DATE H&P PERFORMED: 02/14/23 H&P UPDATE INFORMATION: I have reviewed H&P completed within last 30 days, I have examined patient prior to procedure, No changes to prior documentation and H&P is in [facility] EMR on date indicated PLANNED PROCEDURE: Operation Date: 02/23/23 08:00 Proposed Procedures p RIGHT CARPAL TUNNEL RELEASE WITH RIGHT TRIGGER THUMB RELEASE [id number], M65.30 G56.00(Right) - Patsy Irvin MD s Trigger Finger Release(Right) - Patsy Irvin MD Related Problem List Diagnoses (1) Right carpal tunnel syndrome: (2) Trigger thumb of right hand:
[2023-02-23] MEDS: CELEcoxib 200 mg Capsule 400 MG PO (06:59)
[2023-02-23] MEDS: acetaminophen 1,000 MG/100 ML PIGGYBACK 400 MG IV (07:01)
[2023-02-23] MEDS: gabapentin 300 mg Capsule PO (07:01)
[2023-02-23] MEDS: sodium chloride 0.9% 1,000 ML 30 ML IV (07:01)
[2023-02-23 07:03] LABS: Basophils # 0.1 10^3/uL (0.0-0.1); Eosinophils # 0.5 10^3/uL (0.0-0.8); Eosinophils % 6.2 %; Hematocrit 38.1 % (37.0-47.0); Hemoglobin 11.8 g/dL (11.5-15.3); Lymphocytes # 1.8 10^3/uL (0.8-4.8); Mean Corpuscular Hemoglobin 27.6 pg (28.0-34.0); Mean Corpuscular Volume 89.2 fl (81-99); Mean Platelet Volume 10.9 fL (7.4-10.4); Monocytes # 0.7 10^3/uL (0.2-0.9); Monocytes % 8.1 %; Neutrophils # 5.45 10^3/uL (1.8-7.7); Neutrophils % 63.5 %; Nucleated Red Blood Cells % 0 %; Platelet Count 280 10^3/cmm (130-400); Red Blood Count 4.27 10^6/uL (4.1-5.3); Red Cell Distribution Width 14.2 % (12.1-15.1); White Blood Count 8.6 10^3/uL (4.0-10.0)
[2023-02-23 07:15] LABS: Blood Urea Nitrogen 48 mg/dL (6-20); Calcium 9.2 mg/dL (8.5-10.5); Carbon Dioxide 23 mmol/L (22-29); Chloride 104 mmol/L (98-107); Glomerular Filtration Rate 33.2 mL/min (90-130); Glucose 124 mg/dL (65-115); Osmolality Calculated 298 mOsm/kg (285-295); Sodium 137 mmol/L (136-145)
[2023-02-23 07:21] LABS: Anion Gap 15.3 (5-19); Potassium 5.3 mmol/L (3.5-5.1)
[2023-02-23] MEDS: ceFAZolin 2,000 MG in sodium chloride 0.9% (plus) 50 ML 100 MG IV (08:00)
--- NOTE | 2023-02-23 08:13 | P.ANESASSM_ITS ---
Pre-Anesthetic Assessment Height/Weight: Height 1.6 m Weight 89.811 kg Temp Pulse Resp BP Pulse Ox O2 Del Method 97.6 F 61 16 167/75 96 Room Air 02/23/23 06:35 02/23/23 06:35 02/23/23 06:35 02/23/23 06:35 02/23/23 06:35 02/23/23 06:38 Operation Date: 02/23/23 08:00 Proposed Procedures p RIGHT CARPAL TUNNEL RELEASE WITH RIGHT TRIGGER THUMB RELEASE [id number], M65.30 G56.00(Right) - Patsy Irvin MD s Trigger Finger Release(Right) - Patsy Irvin MD Familial anesthetic complications: none Last intake: Intake Last Liquid Date 02/22/23 Last Liquid Time 21:00 Last Solid Date 02/22/23 Last Solid Time 17:00 Social No alcohol and No tobacco (h/o smoking) Exam alert, oriented x 3, clear to auscultation bilaterally and regular rate & rhythm Airway Submandibular: within normal limits Cervical ROM: within normal limits Mallampati: Class II Dentition: false (upper) Pulmonary Chronic Obstructive Pulmonary Disease and Sleep Apnea CV/HEM Coronary Artery Disease (stent), Hypertension and Peripheral Vascular Disease GI Gastroesophageal Reflux Disease Metabolic Diabetes Mellitus, Hyperlipidemia and Morbid Obesity Anesthetic Plan ASA status: 3 Anesthesia: General Medications/Allergies Home Medications Medication Instructions Recorded Confirmed Last Taken Type cpap mask and tubing #1 ea 04/22/20 02/14/23 Unknown Rx glucometer #1 ea 06/09/20 02/14/23 Unknown Rx aspirin 81 mg tablet,delayed 81 mg PO DAILY #90 tabs 07/15/20 02/23/23 02/22/23 19:00 Rx release cetirizine 10 mg tablet 10 mg PO DAILY allergy symptoms 90 09/09/21 02/22/23 09/08/22 Rx days #90 tabs Diabetic Shoes with 3 pairs of #1 ea 07/05/22 02/14/23 Unknown Rx inserts 3 inserts for diabetic shoes #1 ea 07/20/22 02/14/23 Unknown Rx Custom Molded Accommodative #1 ea 07/20/22 02/14/23 Unknown Rx Orthotics Diabetic Shoes #1 ea 07/20/22 02/14/23 Unknown Rx pantoprazole 20 mg tablet,delayed 20 mg PO DAILY #90 tabs 10/06/22 02/23/23 02/22/23 19:00 Rx release pen needle, diabetic 31 gauge x #100 ea 10/17/22 02/14/23 Unknown Rx 3/16 (BD Ultra-Fine Mini Pen Needle) insulin detemir U-100 100 unit/mL See Rx Instructions .Route 11/06/22 02/23/23 0 02/22/23 19:00 Rx (3 mL) subcutaneous pen (Levemir .COMPLEX #15 mL FlexTouch U-100 Insulin) albuterol sulfate 90 mcg/actuation 1 inh inhalation QID PRN Shortness 11/10/22 02/22/23 Unknown Rx aerosol inhaler (ProAir HFA) Of Breath #6.7 grams sitagliptin phosphate 100 mg 100 mg PO DAILY glucose control 12/28/22 02/23/23 02/22/23 07:00 Rx tablet (Januvia) #30 tabs atorvastatin 10 mg tablet 10 mg PO DAILY #90 tabs 01/23/23 02/23/23 02/22/23 19:00 Rx hydrochlorothiazide 25 mg tablet 25 mg PO DAILY #90 tabs 01/25/23 02/23/23 02/22/23 07:00 Rx losartan 50 mg tablet 50 mg PO DAILY #90 tabs 01/29/23 02/23/23 02/22/23 07:00 Rx clopidogrel 75 mg tablet 75 mg PO DAILY #90 tabs 02/05/23 02/22/23 02/19/23 Rx miscellaneous medical supply 1 ea miscellaneous DAILY #1 ea 02/13/23 02/22/23 02/22/23 Rx sulfamethoxazole 800 1 tab PO BID 10 days #20 tabs 02/14/23 02/23/23 02/22/23 19:00 Rx mg-trimethoprim 160 mg tablet (Bactrim DS) Allergies Allergy/AdvReac Type Severity Reaction Status Date / Time doxycycline Allergy Severe worsening Verified 02/23/23 06:32 symptoms, breathing issues metformin AdvReac Mild ADR-Diarrhe Verified 02/23/23 06:32 a Current Medications Generic Name Dose Route Start Last Admin Trade Name Freq PRN Reason Stop Dose Admin Sodium Chloride 1,000 mls @ 30 mls/hr 02/23/23 06:30 02/23/23 07:01 Sodium Chloride 0.9% IV 02/24/23 06:29 30 mls/hr .Q24H MITZY Administration PFSH Anesthesia Medical History Acute exacerbation of chronic obstructive airways disease ASHD (arteriosclerotic heart disease) Stents placed CKD (chronic kidney disease) stage 3, GFR 30-59 ml/min Combined pulmonary fibrosis and emphysema (CPFE) Community acquired pneumonia Congestive heart failure GERD (gastroesophageal reflux disease) Hyperlipidemia Hypertension with albuminuria Obesity (BMI 35.0-39.9 without comorbidity) KYLE (obstructive sleep apnea) Osteoarthritis (arthritis due to wear and tear of joints) PAD (peripheral artery disease) Type 2 diabetes mellitus with diabetic polyneuropathy Surgical History H/O tubal ligation Hx of cholecystectomy Hx of heart artery stent Family History Mother Diabetes Heart disease Denies family history of CAD (coronary artery disease) Clotting disorder Dementia Hyperlipidemia Psychiatric illness Chronic kidney disease (CKD) Suicide Anesthesia complication Bleeding disorder Family history of premature coronary artery disease Lung disease Cancer Hypertension Stroke Social History Smoking and tobacco status: never smoked Quit status (tobacco): has quit using tobacco Year quit tobacco: 9 years ago Alcohol intake: never Substance/Drug Use: never Data Anesthesia 02/23/23 06:50 02/23/23 06:50 Short CBC 02/23/23 Range/Units 06:50 WBC 8.6 (4.0-10.0) 10^3/uL Hgb 11.8 (11.5-15.3) g/dL Hct 38.1 (37.0-47.0) % MCV 89.2 (81-99) fl Plt Count 280 (130-400) 10^3/cmm Neut % (Auto) 63.5 % Neut # (Auto) 5.45 (1.8-7.7) 10^3/uL BMP 02/23/23 06:50 Sodium 137 Potassium 5.3 H Chloride 104 Carbon Dioxide 23 BUN 48 H Creatinine 1.6 H Glucose 124 H Calcium 9.2 Cardiac Studies: Echocardiogram 09/10/22
--- NOTE | 2023-02-23 09:15 | PC.NURSE ---
Pt arrived to PACU, resting comfortably, O2 at 6L/min via simple mask. Dressing to right wrist C/D/I, right fingers p/w/d, cap refill < 3 seconds, elevated on pillow.
--- NOTE | 2023-02-23 09:24 | PC.NURSE ---
blood glucose 187, Dr Dover aware, no new orders.
--- NOTE | 2023-02-23 09:29 | P.OP_ITS ---
Operative Report Date of procedure: February 23, 2023 Pre-op diagnosis: Right carpal tunnel syndrome with right trigger thumb Post-op diagnosis: Right carpal tunnel syndrome with right trigger thumb Post-op findings: Significant inflammation compression on the median nerve with thinning of the nerve and discoloration. Trigger thumb demonstrated significant fluid and thickening of the A1 amina. Procedure done: Right carpal tunnel release Right trigger thumb release Implants: None Pathology: none sent Surgeon: Patsy Irvin Power Shovel Operator Helper: None Anesthesia: General (Per LMA, ASA 3) Estimated blood loss (mL): 1 Tourniquet time (min): 43 (At 250 mmHg) IV fluids (mL): 500 Urine output (mL): 0 Complications: None Condition: stable Disposition: PACU (Then transfer to same-day surgery for discharge to home) Brief History: This is an established 57 year old female patient who presents for right carpal tunnel release and release of right trigger thumb. Patient states that she has most of her pain to the thumb. Patient states she cannot extend the thumb fully. Patient states that the pain is throbbing in nature. Patient states the pain keeps her up at night. Patient states that she has issues with her hospital admitting clerk strength. Patient states she has swelling to the base of the thumb as well. Patient has documentation of carpal tunnel syndrome consistent with her symptoms as well. While in the office, she elected to proceed with right carpal tunnel release and right trigger thumb release. Questions were answered and consents were signed. Risks and complications were discussed in detail. Procedure: The patient was brought to the operating theater. The patient had general anesthetic per LMA, ASA 3. The tourniquet was elevated to 250 mmHg for a total tourniquet time of 43 minutes. The patient was also given Ancef 2 g preoperatively. The arm was then prepped and draped with DuraPrep in usual fashion with the arm draped free. A surgical pause was performed. At the time, the surgical pause, we confirmed the site and side of surgery. We also confirmed the patient's identity, appropriate and timely administration of preoperative antibiotics and preoperative surgical markings. Following the surgical pause, an incision was made proximally along the metacarpophalangeal crease of the thumb. Dissection continued through the skin to the subcutaneous tissues using a scalpel. Blunt dissection was then utilized to spread soft tissues and allow access to the A1 amina. It was then incised longitudinally and sharply using a knife. This was accomplished without difficulty and atraumatically. Once the A1 amina was released, tendons were brought up out of the wound and evaluated. There were no gross masses on the tendons. Tendons were returned to normal position. We then irrigated the wound and subsequently closed it with 3-0 nylon with an interrupted mattress type s uture. Following closure of the wound, the wound was injected with bupivacaine into the subcutaneous tissues as a local anesthetic. Incision was then made along the thenar crease. The incision crossed the wrist joint in a curvilinear fashion. Dissection continued through skin and soft tissues using a scalpel. The palmaris longus was identified along with the transverse carpal ligament. Each of these was released carefully to avoid injury to the median nerve. We were able to dissect gently into the carpal canal which was noted to be quite tight with significant compression across the median ne rve. The nerve was visualized and was an hourglass shape. The canal was subsequently palpated to assure there was no bony encroachment upon the canal. There was a quite thickened fibrous tissue within the canal, and this was opened longitudinally as well. The canal was then palpated distally and proximally to assure that my small finger was passed easily without impingement. Finding this to be so, attention was directed to closure. The wound was irrigated with bupivacaine plain. It was then closed with 3-0 nylon in an interrupted mattress fashion. Sterile dressing was then placed consisting of Dermabond, OpSite, fluffed fluffs, soft roll, and an Pankaj wrap. The tourniquet was released after 43 minutes. There were no complications. There were no specimens. The procedure was well tolerated. Plan is the patient will be discharged home. Related Problem List Diagnoses (1) Right carpal tunnel syndrome: (2) Trigger thumb of right hand:
[2023-02-23] MEDS: HYDROcodone-acetaminophen 5-325 mg Tablet 1 TAB PO (10:05)
--- NOTE | 2023-02-23 14:28 | ANE.PACU2 ---
Inpatient post-anesthesia follow up: Airway intact: Yes Vital signs: Temperature 97.3 F Pulse Rate 95 Respiratory Rate 17 Blood Pressure 136/87 Pulse Oximetry 99 Oxygen Delivery Me thod Room Air Oxygen Flow Rate 6 Fraction of Inspir ed Oxygen Hydration adequate: Yes Nausea and vomiting: No Pain level: 2 Mental status: Baseline
[2023-02-27 05:22] LABS: Glucose Point of Care 121 mg/dL (70-110)
[2023-02-27 05:22] LABS: Glucose Point of Care 187 mg/dL (70-110)
== END 2023-02-23 10:26 | disposition home or self-care (01) ==
PROVIDERS: Anesthesiology; PCP Family Medicine Adult Medicine; Visit Provider Specialist
PROC: (CPT 64721; principal; 2023-02-23 08:00)
PROC: (CPT 26055; 2023-02-23 08:00)
DX: G56.01 Carpal tunnel syndrome, right upper limb (principal); M65.311 Trigger thumb, right thumb; I25.10 Atherosclerotic heart disease of native coronary artery without angina pectoris; J44.9 Chronic obstructive pulmonary disease, unspecified; G47.30 Sleep apnea, unspecified; Z95.5 Presence of coronary angioplasty implant and graft; E78.5 Hyperlipidemia, unspecified; E66.01 Morbid (severe) obesity due to excess calories; Z68.35 Body mass index [BMI] 35.0-35.9, adult; I73.9 Peripheral vascular disease, unspecified; I10 Essential (primary) hypertension; E11.9 Type 2 diabetes mellitus without complications; Z79.4 Long term (current) use of insulin; Z79.02 Long term (current) use of antithrombotics/antiplatelets; Z79.84 Long term (current) use of oral hypoglycemic drugs; K21.9 Gastro-esophageal reflux disease without esophagitis
CPT/HCPCS: 26055; 64721; 36415; 36416; 80048; 82962; 85025; J0131; J0690; J2704; J3010; J3490; J7030

== ENCOUNTER → 2023-02-28 08:50 | Outpatient (BNVA) | payer MEDICARE, SELFPAY | PROVIDERS: PCP Family Medicine Adult Medicine; Visit Provider Family Medicine Adult Medicine | DX: E11.42 Type 2 diabetes mellitus with diabetic polyneuropathy (principal); Z79.4 Long term (current) use of insulin; R79.89 Other specified abnormal findings of blood chemistry; E78.5 Hyperlipidemia, unspecified; G47.33 Obstructive sleep apnea (adult) (pediatric); I10 Essential (primary) hypertension; R80.9 Proteinuria, unspecified; M65.311 Trigger thumb, right thumb; G56.01 Carpal tunnel syndrome, right upper limb; I25.10 Atherosclerotic heart disease of native coronary artery without angina pectoris; I73.9 Peripheral vascular disease, unspecified | CPT/HCPCS: 83036; 84443 ==

== ENCOUNTER → 2023-03-09 08:23 | Outpatient (BNVA) | payer MEDICARE, SELFPAY | PROVIDERS: PCP Family Medicine Adult Medicine; Visit Provider Nurse Practitioner Family | DX: Z98.890 Other specified postprocedural states (principal) | CPT/HCPCS: 99024 ==

== ENCOUNTER → 2023-07-10 12:31 | Outpatient (BNVA) | payer MEDICARE, SELFPAY | PROVIDERS: PCP Family Medicine Adult Medicine; Visit Provider Podiatrist Foot & Ankle Surgery | DX: I73.9 Peripheral vascular disease, unspecified; M14.672 Charcot's joint, left ankle and foot; E11.42 Type 2 diabetes mellitus with diabetic polyneuropathy; L84 Corns and callosities; M20.41 Other hammer toe(s) (acquired), right foot; M20.42 Other hammer toe(s) (acquired), left foot; Z79.4 Long term (current) use of insulin | CPT/HCPCS: 99213 ==

== ENCOUNTER → 2023-07-25 08:54 | Outpatient (BNVA) | payer MEDICARE, SELFPAY | PROVIDERS: PCP Family Medicine Adult Medicine; Visit Provider Podiatrist Foot & Ankle Surgery | DX: I73.9 Peripheral vascular disease, unspecified (principal); M14.672 Charcot's joint, left ankle and foot; E11.42 Type 2 diabetes mellitus with diabetic polyneuropathy; L84 Corns and callosities; R09.89 Other specified symptoms and signs involving the circulatory and respiratory systems; M20.41 Other hammer toe(s) (acquired), right foot; M20.42 Other hammer toe(s) (acquired), left foot; Z79.4 Long term (current) use of insulin | CPT/HCPCS: 99213 ==

== ENCOUNTER 2023-07-31 08:41 | Emergency (ER) | payer MEDICARE, SELFPAY ==
--- NOTE | 2023-07-31 08:44 | ECG_ITS ---
[facility] Test Date: 2023-07-31 Pat Name: Radha Henry Department: Room: Gender: Female Emergency Medical Dispatcher: : 1965 Requested By: Frank Calero Order Number: [id number] Go MD: Surekha Fang M.D. Measurements Intervals [place] Rate: 71 P: 24 WY: 163 QRS: -17 QRSD: 108 T: 116 QT: 375 QTc: 410 Interpretive Statements SINUS RHYTHM LEFT VENTRICULAR HYPERTROPHY AND ST-T CHANGE [VOLTAGE CRITERIA PLUS ST/T ABNORMALITY] POSSIBLE LATERAL MYOCARDIAL INFARCTION , OF INDETERMINATE AGE Compared to ECG 09/09/2022 11:51:14 Left ventricular hypertrophy now present ST (T wave) deviation now present Myocardial infarct finding now present Electronically Signed On 07-31-2023 12:21:20 CDT by Surekha Fang M.D. [email or web address]
--- NOTE | 2023-07-31 08:54 | XRR_ITS ---
PROCEDURE INFORMATION: Exam: XR Chest Exam date and time: 07/31/2023 8:59 AM Age: 58 years old Clinical indication: Pain; Angina pectoris; Prior surgery; Surgery date: 6+ months; Surgery type: Cardiac stents; Additional info: Chest pain.No history of trauma or recent surgery is provided. TECHNIQUE: Imaging protocol: Radiologic exam of the chest. 1image(s) are provided. Views: 1 view. COMPARISON: 1. CR XR chest 1V portable [id number] 09/09/2022 12:13 PM 2. CR XR chest 2V* [id number] 08/15/2022 5:[address] chest report 11/08/2021. FINDINGS: Lungs: There is some subsegmental atelectasis versus post inflammatory scarring demonstrated. This demonstrates similar distribution with basilar predominance left more so than right along with the associated central peribronchovascular thickening and some bleb related change. No lobar consolidation is appreciated. There is some apical scarring similar overall. Pleural spaces: There is some slight costophrenic angle blunting similar. No pneumothorax is appreciated. Heart/Mediastinum: The cardiomediastinal silhouette is upper normal in size.This can be seen with central averaging as well as shakila enlargement.No cardiac decompensation is appreciated. There appear to be some coronary stent related changes. Diaphragm: There is slight asymmetric right hemidiaphragm elevation. Bones/joints: Osseous alignment is maintained.No interval displaced fracture or dislocation is appreciated. Soft tissues: No radiopaque foreign body or subcutaneous emphysema is appreciated. Other findings: No other significant interval changes are appreciated. XR/XR chest 1V portable [id number] IMPRESSION: There is chronic bilateral multifocal interstitial scarring demonstrated similar appearance and distribution overall. No interval lobar consolidation or cardiac decompensation is appreciated.
--- NOTE | 2023-07-31 08:56 | ED_ITS ---
HPI - Chest Pain General: Chief Complaint: Chest Pain Stated Complaint: chest pain Time Seen by Provider: 07/31/23 08:41 Source: patient Mode of arrival: ambulatory History of Present Illness: 58-year-old female presents emergency room complaining of chest discomfort and productive cough. She said a lot of sinus congestion. She also noticed significant reflux and heartburn, states it is worse when she eats.. She takes pantoprazole for this daily. Denies any hemoptysis no hematemesis or coffee- ground emesis. She has a known history of coronary disease type II diabetic and has a history of chronic kidney disease as well. Patient is a former smoker. MD complaint: chest pain Onset (ago): day(s) (3) Prior episodes: Yes Pain location: epigastric Relieving factors: nothing Exacerbating factors: nothing Associated symptoms: Deny abdominal pain, diaphoresis, dyspnea, fever(s), leg edema, nausea, palpitations, sense of impending doom, syncope or vomiting Treatment prior to arrival: none Review of Systems Const: Denies: fever(s), chills or diaphoresis Card: Denies: chest pain, palpitations or syncope Resp: Denies: dyspnea GI: Denies: abdominal pain, nausea or vomiting : Denies: dysuria, urinary frequency or urinary urgency Musc: Denies: neck pain or back pain Skin/Breast: Denies: rash PFSH ED PFSH: Medical History ASHD (arteriosclerotic heart disease) Stents placed Cellulitis CKD (chronic kidney disease) stage 3, GFR 30-59 ml/min Combined pulmonary fibrosis and emphysema (CPFE) Community acquired pneumonia Congestive heart failure COPD (chronic obstructive pulmonary disease) with emphysema GERD (gastroesophageal reflux disease) Hyperlipidemia Hypertension with albuminuria Obesity (BMI 35.0-39.9 without comorbidity) KYLE on CPAP Osteoarthritis (arthritis due to wear and tear of joints) PAD (peripheral artery disease) Prolapse, uterovaginal Type 2 diabetes mellitus with diabetic polyneuropathy Urinary incontinence Surgical History H/O tubal ligation Hx of cholecystectomy Hx of heart artery stent S/P carpal tunnel release 02/23/2023 Rt CTS release and Rt thumb trigger finger release, Dr. Irvin Family History Mother Diabetes Heart disease Denies family history of CAD (coronary artery disease) Clotting disorder Dementia Hyperlipidemia Psychiatric illness Chronic kidney disease (CKD) Suicide Anesthesia complication Bleeding disorder Family history of premature coronary artery disease Lung disease Cancer Hypertension Stroke Social History Smoking and tobacco/nicotine status: former use of tobacco/nicotine Quit status (tobacco/nicotine): has quit using Year quit tobacco: 9 years ago Alcohol intake: never Substance/Drug Use: never Physical Exam Const: GENERAL APPEARANCE: cooperative and comfortable ORIENTATION/CONSCIOUSNESS: Yes awake, Yes oriented to person, Yes oriented to place and Yes oriented to time HENMT: COMMON NORMALS: normocephalic, atraumatic and hearing grossly normal bilaterally HEAD & SCALP: normocephalic and atraumatic Resp: COMMON NORMALS: normal respiratory effort, No retractions, No use of accessory muscles and clear to auscultation bilaterally AUSCULTATION: clear to auscultation bilaterally Cardio: COMMON NORMALS: regular rate, regular rhythm and No murmurs present (Cardio) RATE: regular rate RHYTHM: regular rhythm GI: COMMON NORMALS: Soft to palpation and No hepatosplenomegaly present AUSCULTATION: Yes normoactive bowel sounds PALPATION: Yes Soft to palpation, No Tenderness to palpation present (GI), No Guarding due to palpation present (GI) and Yes No hepatosplenomegaly present Extremity: COMMON NORMALS: normal to inspection, capillary refill normal, no clubbing, cyanosis or edema, no calf tenderness and no pedal edema Neuro: SENSORIUM/ORIENTATION: Yes oriented to person, Yes oriented to place and Yes oriented to time Skin: COMMON NORMALS: no rashes or lesions noted GENERAL SKIN EXAM: no rashes or lesions noted Course Vital Signs: Vital signs: Vital Signs Temperature 98 F 07/31/23 13:03 Pulse Rate 80 07/31/23 13:03 Respiratory Rate 18 07/31/23 13:03 Blood Pressure 128/72 07/31/23 13:03 Pulse Oximetry 100 07/31/23 13:03 Oxygen Delivery Me thod Room Air 07/31/23 09:32 MDM - Chest Pain Medical Decision Making No acute changes on chest x-ray. EKG showed no acute ST changes. Troponins trending negative. Patient has no symptoms at this time some of her symptoms related more to reflux. We will give her Carafate use. She feels a lot of sinus pressure and congestion never resolved after she was on the course of Levaquin. We will put her on a course of Augmentin for her sinuses have her follow-up with her primary care doctor. Medical Records I reviewed the patient's medical records. Lab Data I reviewed the patient's lab results. 07/31/23 09:05 07/31/23 09:05 Radiology Impressions Chest X-Ray 07/31/23 08:54 IMPRESSION: There is chronic bilateral multifocal interstitial scarring demonstrated similar appearance and distribution overall. No interval lobar consolidation or cardiac decompensation is appreciated. Laboratory Results WBC 9.30 10^3/uL (3.29-11.43) 07/31/23 09:05 RBC 4.25 10^6/uL (3.85-5.65) 07/31/23 09:05 Hgb 11.80 g/dL (11.27-16.99) 07/31/23 09:05 Hct 37.9 % (36-47) 07/31/23 09:05 MCV 89.2 fl (85-98) 07/31/23 09:05 MCH 27.8 pg (27-33) 07/31/23 09:05 MCHC 31.1 g/dL (30-55) 07/31/23 09:05 RDW 14.3 % (12.1-15.1) 07/31/23 09:05 Plt Count 265 10^3/cmm (157-399) 07/31/23 09:05 MPV 10.6 fL (7.4-10.4) H 07/31/23 09:05 Neut % (Auto) 60.4 % 07/31/23 09:05 Lymph % (Auto) 24.6 % 07/31/23 09:05 [place] % (Auto) 8.7 % 07/31/23 09:05 Eos % (Auto) 5.5 % 07/31/23 09:05 Baso % (Auto) 0.6 % 07/31/23 09:05 Neut # (Auto) 5.61 10^3/uL (1.8-7.7) 07/31/23 09:05 Lymph # (Auto) 2.3 10^3/uL (0.8-4.8) 07/31/23 09:05 [place] # (Auto) 0.8 10^3/uL (0.2-0.9) 07/31/23 09:05 Eos # (Auto) 0.5 10^3/uL (0.0-0.8) 07/31/23 09:05 Baso # (Auto) 0.1 10^3/uL (0.0-0.1) 07/31/23 09:05 Nucleated RBC % (auto) 0 % 07/31/23 09:05 Nucleated RBCs # 0.0 /100WBC 07/31/23 09:05 Sodium 134 mmol/L (136-145) L 07/31/23 09:05 Potassium 4.6 mmol/L (3.5-5.1) 07/31/23 09:05 Chloride 99 mmol/L (98-107) 07/31/23 09:05 Carbon Dioxide 26 mmol/L (22-29) 07/31/23 09:05 Anion Gap 13.6 (5-19) 07/31/23 09:05 BUN 34 mg/dL (6-20) H 07/31/23 09:05 Creatinine 1.3 mg/dL (0.5-0.9) H 07/31/23 09:05 GFR Calculation 42.1 mL/min (90-130) L 07/31/23 09:05 Glucose 144 mg/dL (65-115) H 07/31/23 09:05 Calculated Osmolality 288 mOsm/kg (285-295) 07/31/23 09:05 Calcium 9.9 mg/dL (8.5-10.5) 07/31/23 09:05 Total Bilirubin 0.3 mg/dL (0.15-1.2) 07/31/23 09:05 AST 16 U/L (0-32) 07/31/23 09:05 ALT 12 U/L (0-33) 07/31/23 09:05 Alkaline Phosphatase 86 U/L (35-105) 07/31/23 09:05 Troponin T Baseline 18 ng/L (0-10) H 07/31/23 09:05 Troponin T 120 Minute 17.38 ng/L (0-10) H 07/31/23 11:22 Delta Troponin T -0.62 ABS# (0-10) L 07/31/23 11:22 Total Protein 7.5 g/dL (6.6-8.7) 07/31/23 09:05 Albumin 3.5 g/dL (3.5-5.2) 07/31/23 09:05 Globulin 4.0 g/dL (1.3-4.6) 07/31/23 09:05 All radiology interpretation(s) finalized by discharge Discharge Plan Discharge Patient Disposition: Home Clinical Impression: GERD (gastroesophageal reflux disease), Sinusitis Condition: Stable Prescriptions: New amoxicillin-pot clavulanate 875-125 mg tablet 1 tab PO BID Qty: 20 0RF Carafate 1 gram tablet 1 g PO Q6H PRN (Reason: dyspepsia) 84 Days Qty: 336 0RF No Action (DME) Diabetic Shoes with 3 pairs of inserts See Rx Instructions .ROUTE .MEDSUPPLY Qty: 1 0RF Rx Instructions: As directed by [employer] losartan 50 mg tablet 25 mg PO DAILY (DME) cpap mask and tubing See Rx Instructions .Route .MEDSUPPLY Qty: 1 0RF Rx Instructions: FOR HOME, sutosubstitue formulary equivalent (DME) glucometer See Rx Instructions .Route .MEDSUPPLY Qty: 1 0RF Rx Instructions: glucometer kit, check bs three times daily 100 strips 100 lancets aspirin 81 mg tablet,delayed release (DR/EC) 81 mg PO DAILY Qty: 90 3RF cetirizine 10 mg tablet 10 mg PO DAILY 90 Days Qty: 90 2RF (DME) Diabetic shoes with 3 inserts See Rx Instructions .Route .MEDSUPPLY Qty: 1 0RF Rx Instructions: As directed HOME (DME) Diabetic Shoes See Rx Instructions .Route .MEDSUPPLY Qty: 1 0RF Rx Instructions: As directed HOME (DME) Custom Molded Accommodative Orthotics See Rx Instructions .Route .MEDSUPPLY Qty: 1 0RF Rx Instructions: As directed [employer] (DME) pen needle, diabetic [BD Ultra-Fine Mini Pen Needle] 31 gauge x 3/16 needle See Rx Instructions .Route Qty: 100 12RF Rx Instructions: As directed albuterol sulfate [ProAir HFA] 90 mcg/actuation HFA aerosol inhaler 1 inh INHALATION QID PRN (Reason: Shortness Of Breath) Qty: 6.7 0RF atorvastatin 10 mg tablet 10 mg PO DAILY Qty: 90 3RF clopidogrel 75 mg tablet 75 mg PO DAILY Qty: 90 3RF pantoprazole 20 mg tablet,delayed release (DR/EC) 20 mg PO DAILY Qty: 90 1RF calcium polycarbophil [FiberCon] 625 mg tablet 625 mg PO BID Qty: 60 5RF (DME) blood-glucose meter [Accu-Chek Guide Glucose Meter] Misc See Rx Instructions .Route Qty: 1 0RF Rx Instructions: As directed (DME) Accu-Chek Guide test strips Strip See Rx Instructions .Route Qty: 100 11RF Rx Instructions: As directed (DME) lancets [Accu-Chek Softclix Lancets] Misc See Rx Instructions .Route Qty: 100 11RF Rx Instructions: As directed (DME) Accu-Chek Guide L1-L2 Ctrl Krista Solution See Rx Instructions .Route Qty: 1 0RF Rx Instructions: As directed hydrochlorothiazide 25 mg tablet 25 mg PO DAILY Qty: 90 1RF Hold Instructions: Resume on 09/12/22. Levemir FlexPen 100 unit/mL (3 mL) insulin pen 50 unit SUBCUT DAILY oxybutynin chloride 10 mg tablet extended release 24hr 10 mg PO DAILY Januvia 100 mg tablet 100 mg PO DAILY Rx Instructions: 340B meds Discharge Orders: Discharge ED (Routine); Ordered 07/31/23 Ordered By: Frank Sandoval Referrals: Cameron Frost MD [Primary Care Provider] - Patient Instructions: Opioid Safety, Pain Management Activity Restrictions/Additional Instructions: Thank you for choosing [facility] for your healthcare needs today. Please realize this is an emergency room and that we are providing you with a medical screening exam and this may not be complete and all inclusive of all the testing and or work up that you may need to determine your ailment or severity of your illness. It is very important that you follow up as instructed or that you return to the Emergency Department should you have concerns or if your condition changes or worsens in any way. You were seen today for persistent sinus congestion and epigastric and chest discomfort worsened with eating. Recommend you continue the current pantoprazole add Carafate as needed. Gave you a course of antibiotics for your sinuses. Your heart enzymes and EKG did not show any acute changes symptoms worsen or change recheck with your primary care doctor. Coding Level of Care Code ED Electrical Research Engineer for Alisha Middleton
[2023-07-31 08:58] VITALS: BP 141/61; PULSE 65; RESP 20; TEMP 36.6; O2SAT 100; BMI 35.0
[2023-07-31 09:14] LABS: Basophils # 0.1 10^3/uL (0.0-0.1); Basophils % 0.6 %; Eosinophils # 0.5 10^3/uL (0.0-0.8); Eosinophils % 5.5 %; Hematocrit 37.9 % (36-47); Lymphocytes # 2.3 10^3/uL (0.8-4.8); Lymphocytes % 24.6 %; Mean Corpuscular HGB Conc 31.1 g/dL (30-55); Mean Corpuscular Hemoglobin 27.8 pg (27-33); Mean Corpuscular Volume 89.2 fl (85-98); Mean Platelet Volume 10.6 fL (7.4-10.4); Monocytes # 0.8 10^3/uL (0.2-0.9); Monocytes % 8.7 %; Neutrophils # 5.61 10^3/uL (1.8-7.7); Neutrophils % 60.4 %; Nucleated Red Blood Cells % 0 %; Platelet Count 265 10^3/cmm (157-399); Red Blood Count 4.25 10^6/uL (3.85-5.65); Red Cell Distribution Width 14.3 % (12.1-15.1)
[2023-07-31 09:32] VITALS: BP 141/76; O2SAT 100
[2023-07-31 09:35] LABS: Alanine Aminotransferase 12 U/L (0-33); Albumin Level 3.5 g/dL (3.5-5.2); Alkaline Phosphatase 86 U/L (35-105); Anion Gap 13.6 (5-19); Aspartate Amino Transferase 16 U/L (0-32); Blood Urea Nitrogen 34 mg/dL (6-20); Calcium 9.9 mg/dL (8.5-10.5); Carbon Dioxide 26 mmol/L (22-29); Chloride 99 mmol/L (98-107); Glomerular Filtration Rate 42.1 mL/min (90-130); Glucose 144 mg/dL (65-115); Osmolality Calculated 288 mOsm/kg (285-295); Potassium 4.6 mmol/L (3.5-5.1); Sodium 134 mmol/L (136-145); Total Bilirubin 0.3 mg/dL (0.15-1.2); Total Protein 7.5 g/dL (6.6-8.7)
[2023-07-31 09:38] LABS: Troponin(5th) Baseline 18 ng/L (0-10)
[2023-07-31] MEDS: aspirin 81 mg Chew Tablet 324 MG PO (10:41)
--- NOTE | 2023-07-31 10:54 | ECG_ITS ---
[facility] Test Date: 2023-07-31 Pat Name: Radha Henry Department: Room: Gender: Female Visual Designer: : 1965 Requested By: Frank Calero Order Number: [id number] Go MD: Surekha Fang M.D. Measurements Intervals [place] Rate: 57 P: 21 VT: 156 QRS: -17 QRSD: 110 T: 98 QT: 417 QTc: 409 Interpretive Statements SINUS BRADYCARDIA LEFT VENTRICULAR HYPERTROPHY AND ST-T CHANGE [VOLTAGE CRITERIA PLUS ST/T ABNORMALITY] Compared to ECG 09/09/2022 11:51:14 Left ventricular hypertrophy now present ST (T wave) deviation now present Sinus rhythm no longer present Electronically Signed On 07-31-2023 12:21:50 CDT by Surekha Fang M.D. [id number]
[2023-07-31 11:48] LABS: Troponin 5 2HR 17.38 ng/L (0-10)
[2023-07-31 11:59] LABS: Troponin 5 2HR Delta -0.62 ABS# (0-10)
[2023-07-31 13:03] VITALS: BP 128/72; PULSE 80; RESP 18; TEMP 36.6; O2SAT 100
== END 2023-07-31 13:04 | disposition home or self-care (01) ==
PROVIDERS: Emergency Provider Family Medicine; PCP Family Medicine Adult Medicine
DX: K21.9 Gastro-esophageal reflux disease without esophagitis (principal); J32.9 Chronic sinusitis, unspecified; Z79.02 Long term (current) use of antithrombotics/antiplatelets; Z79.82 Long term (current) use of aspirin; Z79.4 Long term (current) use of insulin; Z87.891 Personal history of nicotine dependence; E11.22 Type 2 diabetes mellitus with diabetic chronic kidney disease; I13.0 Hypertensive heart and chronic kidney disease with heart failure and stage 1 through stage 4 chronic kidney disease, or unspecified chronic kidney disease; N18.30 Chronic kidney disease, stage 3 unspecified; I50.9 Heart failure, unspecified; J44.9 Chronic obstructive pulmonary disease, unspecified; E78.5 Hyperlipidemia, unspecified
CPT/HCPCS: 36415; 71045; 80053; 84484; 85025; 93005; 99285

== ENCOUNTER 2023-08-20 20:54 | Observation (INO) | payer MEDICARE, SELFPAY ==
[2023-08-20 21:03] VITALS: BP 118/77; PULSE 89; RESP 28; TEMP 38.1; O2SAT 90; BMI 31.8
--- NOTE | 2023-08-20 21:38 | XRR_ITS ---
PROCEDURE INFORMATION: Exam: XR Chest Exam date and time: 08/20/2023 9:58 PM Age: 58 years old Clinical indication: Shortness of breath; Additional info: Short of breath, fever TECHNIQUE: Imaging protocol: Radiologic exam of the chest. Views: 1 view. COMPARISON: CR XR chest 1V portable [id number] 07/31/2023 8:59 AM FINDINGS: Lungs: Irregular opacities in the lung bases, similar to the prior examination. Pleural spaces: Unremarkable. No pleural effusion. No pneumothorax. Heart/Mediastinum: Unremarkable. No cardiomegaly. Bones/joints: Unremarkable. XR/XR chest 1V portable [id number] IMPRESSION: Irregular opacities in the lung bases, similar to the prior examination.
[2023-08-20 21:41] LABS: Basophils # 0.1 10^3/uL (0.0-0.1); Basophils % 0.5 %; Eosinophils # 0.2 10^3/uL (0.0-0.8); Eosinophils % 1.4 %; Hematocrit 35.8 % (36-47); Lymphocytes # 0.9 10^3/uL (0.8-4.8); Lymphocytes % 5.9 %; Mean Corpuscular HGB Conc 31.3 g/dL (30-55); Mean Corpuscular Hemoglobin 27.7 pg (27-33); Mean Corpuscular Volume 88.4 fl (85-98); Mean Platelet Volume 10.5 fL (7.4-10.4); Monocytes # 1.2 10^3/uL (0.2-0.9); Monocytes % 8.1 %; Neutrophils # 12.06 10^3/uL (1.8-7.7); Neutrophils % 83.8 %; Nucleated Red Blood Cells % 0 %; Platelet Count 253 10^3/cmm (157-399); Red Blood Count 4.05 10^6/uL (3.85-5.65); Red Cell Distribution Width 14.5 % (12.1-15.1)
[2023-08-20 21:49] VITALS: BP 139/75; PULSE 93; O2SAT 97
--- NOTE | 2023-08-20 21:51 | W.ED.FEMALGU ---
HPI - Female Genitourinary General: Chief complaint: Urogenital-Female Stated complaint: Legs\Hip\Back Pain Time Seen by Provider: 08/20/23 21:38 History of Present Illness: Patient comes in today with complaints of pain all over for the last 2 to 3 days. Patient has also been febrile. Patient appears unwell. Patient is alert and answers questions appropriately. Patient had pneumonia in July and then was treated for sinusitis on July 31 of antibiotics. Patient stopped antibiotics on 10 August. Patient for the last 2 to 3 days has been ill. Patient reports cough, shortness of breath, and back and body pain. Patient has a history of COPD, coronary artery disease, insulin-dependent diabetes, prolapsed bladder with urinary retention. Patient is hypoxic on room air at 89 to 90% with respirations in the 20s. Patient is febrile with temperature of 100.6. Review of the record also notes patient has CKD, KYLE, hyperlipidemia, OA, and peripheral artery disease. Associated symptoms: Reports nausea; Deny headache(s) Review of Systems General: Reports: 10 or more systems reviewed and unremarkable except in HPI and below Const: Reports: fever(s) and body aches Eyes: Denies: change in vision ENMT: Denies: throat pain or nasal discharge Card: Reports: dyspnea on exertion Resp: Reports: dyspnea and non-productive cough GI: Reports: nausea and vomiting; Denies: diarrhea or constipation : Reports: difficulty voiding Musc: Reports: back pain; Denies: neck pain Skin/Breast: Denies: rash Neuro: Denies: headache(s) [facility] PFSH: Medical History ASHD (arteriosclerotic heart disease) Stents placed Cellulitis CKD (chronic kidney disease) stage 3, GFR 30-59 ml/min Combined pulmonary fibrosis and emphysema (CPFE) Community acquired pneumonia Congestive heart failure COPD (chronic obstructive pulmonary disease) with emphysema GERD (gastroesophageal reflux disease) Hyperlipidemia Hypertension with albuminuria Obesity (BMI 35.0-39.9 without comorbidity) KYLE on CPAP Osteoarthritis (arthritis due to wear and tear of joints) PAD (peripheral artery disease) Prolapse, uterovaginal Type 2 diabetes mellitus with diabetic polyneuropathy Urinary incontinence Surgical History H/O tubal ligation Hx of cholecystectomy Hx of heart artery stent S/P carpal tunnel release 02/23/2023 Rt CTS release and Rt thumb trigger finger release, Dr. Irvin Family History Mother Diabetes Heart disease Denies family history of Colon cancer Ovarian cancer Thyroid cancer CAD (coronary artery disease) Clotting disorder Dementia Hyperlipidemia Psychiatric illness Chronic kidney disease (CKD) Breast cancer Suicide Anesthesia complication Bleeding disorder Family history of premature coronary artery disease Lung disease Cancer Hypertension Uterine cancer Stroke Social History Smoking and tobacco/nicotine status: former use of tobacco/nicotine Quit status (tobacco/nicotine): has quit using Year quit tobacco: 9 years ago Alcohol intake: never Substance/Drug Use: never Physical Exam Const: COMMON NORMALS: alert HENMT: COMMON NORMALS: normocephalic HEAD & SCALP: normocephalic MOUTH: Normal oral and palatal mucosa present Neck/C-Spine: COMMON NORMALS: full ROM Resp: EFFORT & INSPECTION: Yes able to speak in complete sentences and Yes tachypneic AUSCULTATION: diminished lung sounds Cardio: COMMON NORMALS: regular rate and regular rhythm RATE: regular rate RHYTHM: regular rhythm GI: COMMON NORMALS: Soft to palpation PALPATION: Yes Soft to palpation and Yes Tenderness to palpation present (GI) (Nonlocalized) : BLADDER/KIDNEY EXAM: Yes CVA tenderness Back/Pelvis: GENERAL BACK: Yes CVA tenderness Neuro: SENSORIUM/ORIENTATION: Yes alert Course Vital Signs: Vital signs: Vital Signs Temperature 98.6 F 08/21/23 00:02 Pulse Rate 91 08/20/23 23:50 Respiratory Rate 15 08/20/23 23:40 Blood Pressure 107/63 08/20/23 23:50 Pulse Oximetry 95 08/20/23 23:50 Oxygen Delivery Me thod Nasal Cannula 08/20/23 23:50 Oxygen Flow Rate 2 08/20/23 23:50 MDM - Female Medical Decision Making Patient came in today due to fever and body aches. Patient has been ill for the last 2 to 3 days. Patient did have some increased respiratory effort on movement. On exam lungs are decreased throughout. Abdomen soft. Patient has some muscle tenderness on palpation. Tenderness is noted in the suprapubic area. No edema is noted in the extremities. Patient moves all extremities well. Differential diagnosis includes pneumonia, respiratory failure, sepsis, cystitis, pyelonephritis, PE, COVID-19. CBC showed a white count of 14,000. CMP had a creatinine 1.5 which appears to be patient's normal. Blood glucose was 244. Sodium was 135. BNP was 3282 which patient is high as in the 6000's. Troponin baseline was 45. Urinalysis showed a large amount of white blood cells and positive for nitrates with a straight cath urine. CT of the chest abdomen pelvis noted no PE or changes in lung mccain from prior exam in 2021. CT of the abdomen pelvis showed bladder wall thickening with gas in it. Discussed abnormalities noted on the CT scan and whether not she is following up with pulmonology since 2021. Patient reported no follow-up at this time. Case management will be requested to have patient follow-up with pulmonology due to the abnormalities in her lung mccain for better treatment regarding her COPD. Patient also may need to be considered for home oxygen. We will add Advair back to patient's regimen for the treatment of her COPD. Patient did state that she was improved with but had never had it refilled from her primary care. Patient was given 2 g of Rocephin in the emergency department and be continued on cephalexin at home for her urinary tract infection. Patient was recommended to follow-up for worsening symptoms or new concerns. Patient was stable and discharged home. Addendum to chart, second troponin came back elevated with a delta of 77. I reviewed this with Dr. Metcalf who agreed the patient should come in observation for monitoring of the troponin and further evaluation. Patient will be continued treatment of her urinary tract infection and will be evaluated further with cardiology. I talked with Dr. Meyer who agreed to admission for observation. Lab Data 08/20/23 21:34 08/20/23 21:34 Radiology Impressions Chest X-Ray 08/20/23 21:38 IMPRESSION: Irregular opacities in the lung bases, similar to the prior examination. Chest/Abdomen/Pelvis CT 08/20/23 22:32 IMPRESSION: 1. No pulmonary embolus. 2. No focal consolidation or pleural effusion. 3. Diffuse increased septal markings throughout both lungs with a lower lobe predominance. This is similar to the prior chest CT dated 11/08/2021 and can be seen in the setting of chronic interstitial lung disease. IMPRESSION: 1. There is a locule of air in the bladder. This is nonspecific but can be seen the setting of cystitis. Correlate with UA. 2. No bowel obstruction or inflammatory process associated bowel. 3. No free air or fluid in the abdomen or pelvis. Laboratory Results WBC 14.40 10^3/uL (3.29-11.43) H 08/20/23 21:34 RBC 4.05 10^6/uL (3.85-5.65) 08/20/23 21:34 Hgb 11.20 g/dL (11.27-16.99) L 08/20/23 21: Hct 35.8 % (36-47) L 08/20/23 21: MCV 88.4 fl (85-98) 08/20/23 21: MCH 27.7 pg (27-33) 08/20/23 21: MCHC 31.3 g/dL (30-55) 08/20/23 21: RDW 14.5 % (12.1-15.1) 08/20/23 21:34 Plt Count 253 10^3/cmm (157-399) 08/20/23 21:34 MPV 10.5 fL (7.4-10.4) H 08/20/23 21:34 Neut % (Auto) 83.8 % 08/20/23 21: Lymph % (Auto) 5.9 % 08/20/23: Gulf % (Auto) 8.1 % 08/20/23: Eos % (Auto) 1.4 % 08/20/23 21:34 Baso % (Auto) 0.5 % 08/20/23 21:34 Neut # (Auto) 12.06 10^3/uL (1.8-7.7) H 08/20/23 21:34 Lymph # (Auto) 0.9 10^3/uL (0.8-4.8) 08/20/23 21:34 Gulf # (Auto) 1.2 10^3/uL (0.2-0.9) H 08/20/23 21:34 Eos # (Auto) 0.2 10^3/uL (0.0-0.8) 08/20/23 21:34 Baso # (Auto) 0.1 10^3/uL (0.0-0.1) 08/20/23 21:34 Nucleated RBC % (auto) 0 % 08/20/23 21:34 Nucleated RBCs # 0.0 /100WBC 08/20/23 21:34 D-Dimer 2.06 ug/mLFEU (0-0.59) H 08/20/23 21:34 Sodium 135 mmol/L (136-145) L 08/20/23 21:34 Potassium 4.7 mmol/L (3.5-5.1) 08/20/23 21:34 Chloride 103 mmol/L (98-107) 08/20/23 21:34 Carbon Dioxide 20 mmol/L (22-29) L 08/20/23 21:34 Anion Gap 16.7 (5-19) 08/20/23 21:34 BUN 40 mg/dL (6-20) H 08/20/23 21:34 Creatinine 1.5 mg/dL (0.5-0.9) H 08/20/23 21:34 GFR Calculation 35.7 mL/min (90-130) L 08/20/23 21:34 Glucose 244 mg/dL (65-115) H 08/20/23 21:34 Calculated Osmolality 298 mOsm/kg (285-295) H 08/20/23 21:34 Lactic Acid 1.6 mmol/L (0.5-2.2) 08/20/23 21:34 Calcium 8.9 mg/dL (8.5-10.5) 08/20/23 21:34 Total Bilirubin 0.4 mg/dL (0.15-1.2) 08/20/23 21:34 AST 21 U/L (0-32) 08/20/23 21:34 ALT 18 U/L (0-33) 08/20/23 21:34 Alkaline Phosphatase 93 U/L (35-105) 08/20/23 21:34 Troponin T Baseline 45 ng/L (0-10) H 08/20/23 21:34 Troponin T 120 Minute 122.9 ng/L (0-10) H 08/20/23 23:33 Delta Troponin T 77.9 ABS# (0-10) H* 08/20/23 23:33 NT-Pro-B Natriuret Pep 3282 pg/mL (0-125) H 08/20/23 21:34 Total Protein 7.4 g/dL (6.6-8.7) 08/20/23 21:34 Albumin 3.2 g/dL (3.5-5.2) L 08/20/23 21:34 Globulin 4.2 g/dL (1.3-4.6) 08/20/23 21:34 Lipase 14 U/L (13-60) 08/20/23 21:34 Urine Color Yellow (Yellow) 08/20/23 22:37 Urine Appearance Cloudy (CLEAR) A 08/20/23 22:37 Urine pH 6.5 (5-7) 08/20/23 22:37 Ur Specific [place] 1.030 (1.005-1.030) 08/20/23 22:37 Urine Protein 3+ (Negative) H 08/20/23 22:37 Urine Glucose (UA) Norm (Normal) 08/20/23 22:37 Urine Ketones Negative (Negative) 08/20/23 22:37 Urine Blood 2+ (Negative) H 08/20/23 22:37 Urine Nitrate Positive (Negative) H 08/20/23 22:37 Urine Bilirubin Neg (Negative) 08/20/23 22:37 Urine Urobilinogen Norm mg/dL (Negative) 08/20/23 22:37 Ur Leukocyte Esterase Negative (Negative) 08/20/23 22:37 Urine RBC 0-4 /hpf (0-2) H 08/20/23 22:37 Urine WBC >100 /hpf (0-5) H 08/20/23 22:37 Ur Squamous Epith Cells 0-4 /hpf (0-5) H 08/20/23 22:37 Amorphous Sediment Not Reportable 08/20/23 22:37 Urine Bacteria 4+ /hpf (NONE) H 08/20/23 22:37 All radiology interpretation(s) finalized by discharge Discharge Plan Discharge Patient Disposition: Placed in Observation Clinical Impression: Elevated troponin, CKD (chronic kidney disease) Urinary tract infection Qualifiers: Urinary tract infection type: acute cystitis Hematuria presence: without hematuria Qualified Code(s): N30.00 - Acute cystitis without hematuria COPD (chronic obstructive pulmonary disease) with emphysema Qualifiers: Emphysema type: unspecified Qualified Code(s): J43.9 - Emphysema, unspecified Discharge Diet: Usual diet Discharge Activity: Increase activity as tolerated Coding Level of Care Code ED Information Security Architect for Alisha Middleton
[2023-08-20 22:00] VITALS: BP 147/80; PULSE 93; O2SAT 97
[2023-08-20 22:04] LABS: Alanine Aminotransferase 18 U/L (0-33); Albumin Level 3.2 g/dL (3.5-5.2); Alkaline Phosphatase 93 U/L (35-105); Anion Gap 16.7 (5-19); Aspartate Amino Transferase 21 U/L (0-32); Blood Urea Nitrogen 40 mg/dL (6-20); Calcium 8.9 mg/dL (8.5-10.5); Carbon Dioxide 20 mmol/L (22-29); Chloride 103 mmol/L (98-107); Globulin 4.2 g/dL (1.3-4.6); Glomerular Filtration Rate 35.7 mL/min (90-130); Glucose 244 mg/dL (65-115); Lipase 14 U/L (13-60); Osmolality Calculated 298 mOsm/kg (285-295); Potassium 4.7 mmol/L (3.5-5.1); Sodium 135 mmol/L (136-145); Total Bilirubin 0.4 mg/dL (0.15-1.2); Total Protein 7.4 g/dL (6.6-8.7)
[2023-08-20 22:08] LABS: D Dimer 2.06 ug/mLFEU (0-0.59)
[2023-08-20 22:15] LABS: Lactic Sepsis W/Reflex 1.6 mmol/L (0.5-2.2)
[2023-08-20 22:16] LABS: Troponin(5th) Baseline 45 ng/L (0-10)
[2023-08-20 22:29] LABS: NT Pro B Type Natriuretic Pept 3282 pg/mL (0-125)
--- NOTE | 2023-08-20 22:32 | CTR_ITS ---
PROCEDURE INFORMATION: Exam: CTA Chest With Contrast Exam date and time: 08/20/2023 10:49 PM Age: 58 years old Clinical indication: Other: Abd pain; Fever and shortness of breath; Prior surgery; Surgery date: 6+ months; Surgery type: Gb; Additional info: Short of breath, abd pain TECHNIQUE: Imaging protocol: Computed tomographic angiography of the chest with contrast. Exam focused on the arteries. 3D rendering (Not supervised by radiologist): MIP and/or 3D reconstructed images were created by the technologist. Radiation optimization: All CT scans at this facility use at least one of these dose optimization techniques: automated exposure control; mA and/or kV adjustment per patient size (includes targeted exams where dose is matched to clinical indication); or iterative reconstruction. Contrast material: OMNI 350; Contrast volume: 100 ml; Contrast route: INTRAVENOUS (IV); REPORTING DATA: Count of CT and Cardiac NM exams in prior 12 months: This patient has received 0 known CTs and 0 known cardiac nuclear medicine studies in the 12 months prior to the current study. [id number] 12:45 AM RADIATION DOSE METRICS: Total DLP (mGy-cm): 1381.07 FINDINGS: Pulmonary arteries: No pulmonary embolus. Aorta: Unremarkable. No aortic aneurysm. No aortic dissection. Lungs: Diffuse increased septal markings throughout both lungs with a lower lobe predominance. This is similar to the prior chest CT dated 11/08/2021 and can be seen in the setting of chronic interstitial lung disease. No focal consolidation or pleural effusion. Pleural spaces: See Lungs finding. Heart: Unremarkable. No cardiomegaly. No pericardial effusion. Coronary arteries: Coronary arterial atherosclerotic calcifications are present. Lymph nodes: Unremarkable. No enlarged lymph nodes. Bones/joints: Unremarkable. No acute fracture. Soft tissues: Unremarkable. PROCEDURE INFORMATION: Exam: CT Abdomen And Pelvis With Contrast Exam date and time: 08/20/2023 10:49 PM Age: 58 years old Clinical indication: Other: Abd pain; Fever and shortness of breath; Prior surgery; Surgery date: 6+ months; Surgery type: Gb; Additional info: Short of breath, abd pain TECHNIQUE: Imaging protocol: Computed tomography of the abdomen and pelvis with contrast. Radiation optimization: All CT scans at this facility use at least one of these dose optimization techniques: automated exposure control; mA and/or kV adjustment per patient size (includes targeted exams where dose is matched to clinical indication); or iterative reconstruction. Contrast material: OMNI 350; Contrast volume: 100 ml; Contrast route: INTRAVENOUS (IV); REPORTING DATA: Count of CT and Cardiac NM exams in prior 12 months: This patient has received 0 known CTs and 0 known cardiac nuclear medicine studies in the 12 months prior to the current study. COMPARISON: CT angio chest PE protcl [id number] 11/08/2021 12:45 AM RADIATION DOSE METRICS: Total DLP (mGy-cm): 1381.07 FINDINGS: Liver: Normal. No mass. Gallbladder and bile ducts: The gallbladder is absent. Pancreas: Normal. No ductal dilation. Spleen: Normal. No splenomegaly. Adrenal glands: Normal. No mass. Kidneys and ureters: Normal. No hydronephrosis. Stomach and bowel: Unremarkable. No obstruction. No mucosal thickening. Appendix: The appendix is not visualized but there are no secondary signs of acute appendicitis. Intraperitoneal space: Unremarkable. No free air. No significant fluid collection. Vasculature: Severe atherosclerotic disease of the abdominal aorta and iliac arteries. Lymph nodes: Unremarkable. No enlarged lymph nodes. Urinary bladder: There is a locule of air in the bladder. This is nonspecific but can be seen the setting of cystitis. Reproductive: Unremarkable as visualized. Bones/joints: Unremarkable. No acute fracture. Soft tissues: Unremarkable. CT/CT angio chest w abd pel w con IMPRESSION: 1. No pulmonary embolus. 2. No focal consolidation or pleural effusion. 3. Diffuse increased septal markings throughout both lungs with a lower lobe predominance. This is similar to the prior chest CT dated 11/08/2021 and can be seen in the setting of chronic interstitial lung disease. IMPRESSION: 1. There is a locule of air in the bladder. This is nonspecific but can be seen the setting of cystitis. Correlate with UA. 2. No bowel obstruction or inflammatory process associated bowel. 3. No free air or fluid in the abdomen or pelvis.
[2023-08-20 22:53] LABS: Add Urine Culture? Yes; Add Urine Microscopic? YES; Bacteria Urine 4+ /hpf; Bilirubin Urine Neg (Negative); Blood Urine 2+ (Negative); Glucose Urine UA Norm (Normal); Ketones Urine Negative (Negative); Leukocyte Esterase Urine Negative (Negative); Nitrate Urine Positive (Negative); Protein Urine 3+ (Negative); RBC Urine 0-4 /hpf (0-2); Squamous Epithelial Cell Urine 0-4 /hpf (0-5); Urine Appearance Cloudy (CLEAR); Urine Color Yellow (Yellow); Urobilinogen Urine Norm (Negative); WBC Urine >100 /hpf (0-5); pH Urine 6.5 (5-7)
[2023-08-20] MEDS: iohexol 350 mg/mL 500 mL Btl (per mL) IV (22:53)
[2023-08-20] MEDS: acetaminophen 500 mg Tablet 1000 MG PO (23:15)
[2023-08-20] MEDS: cefTRIAXone 2,000 MG in sodium chloride 0.9% (plus) 50 ML 100 MG IV (23:19)
[2023-08-20] MEDS: sodium chloride 0.9% 500 ML IV (23:19)
[2023-08-20 23:40] VITALS: PULSE 75; RESP 15; O2SAT 96
[2023-08-20] MEDS: ipratropium-albuterol 3 mL Neb INHALATION (23:40)
--- NOTE | 2023-08-20 23:49 | ECG_ITS ---
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 Measurements Intervals [place] Rate: 79 P: 2 [place]: 143 QRS: -25 QRSD: 102 T: 70 QT: 394 QTc: 452 Interpretive Statements SINUS RHYTHM LVH with ST changes consistent with LV strain Compared to previous EKG on 07/31 23, no significant change Electronically Signed On 08-21-2023 14:55:11 SCIENCE INTERN by Ronak Landa M.D. [id number]
[2023-08-20 23:50] VITALS: BP 107/63; PULSE 91; O2SAT 95
[2023-08-21] VITALS (56 sets, daily range): BP systolic 106–183; BP diastolic 59–117; PULSE 62–86; RESP 10–40; TEMP 36.4–37.2; O2SAT 83–100
[2023-08-21 00:02] LABS: Troponin 5 2HR 122.9 ng/L (0-10); Troponin 5 2HR Delta 77.9 ABS# (0-10)
[2023-08-21] MEDS: aspirin 81 mg Chew Tablet 324 MG PO (00:31)
[2023-08-21 01:14] LABS: Adenovirus Not Detected (NOT DETECT); Chlamydia Pneumoniae Not Detected (NOT DETECT); Coronavirus 229E,HKU1,NL63,OC4 Not Detected (NOT DETECT); Human Metapneumovirus Not Detected (NOT DETECT); Human Rhinovirus/Enterovirus Not Detected (NOT DETECT); Influenza A Not Detected (NOT DETECT); Influenza A H1 Not Detected (NOT DETECT); Influenza A H1-2009 Not Detected (NOT DETECT); Influenza A H3 Not Detected (NOT DETECT); Influenza B Not Detected (NOT DETECT); Mycoplasma Pneumoniae Not Detected (NOT DETECT); Parainfluenza Virus Type 1 Not Detected (NOT DETECT); Parainfluenza Virus Type 2 Not Detected (NOT DETECT); Parainfluenza Virus Type 3 Not Detected (NOT DETECT); Parainfluenza Virus Type 4 Not Detected (NOT DETECT); Respiratory Syncytial Virus A Not Detected (NOT DETECT); Respiratory Syncytial Virus B Not Detected (NOT DETECT); SARS-COV-2 Not Detected (NOT DETECT)
--- NOTE | 2023-08-21 02:28 | P.HP_ITS ---
Providers/Chief Complaint Admitting Physician: Fabiana Meyer MD Primary Care Provider: Cameron Frost MD Chief Complaint: Legs\Hip\Back Pain History of Present Illness Radha Henry is a 58 year old female with established history of coronary 2 stents 2013 and 2015, non-smoker, patient developed pneumonia and now suffering from sinusitis, presented to the hospital for nausea vomiting and weakness. 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, she does not use oxygen, Last 24 hours her symptoms worsened with nausea, vomiting, chills, she is also endorsing burning with micturition, endorsing fever, she still feeling congested, her sinusitis symptoms have not improved, in the ED she was diagnosed with non-STEMI and UTI I have started her on ACS protocol currently chest pain-free however stating that she is hurting around her collarbone and this was also the scenario when she had stents placed 2016 Resting comfortably at the time of my evaluation, requested D-dimer Creatinine 1.5 Mild hyponatremia Leukocytosis 14.4 with low-grade fever lactic acid is normal BNP is high Review of Systems Const: Reports: fever(s) and chills Eyes: Denies: change in vision ENMT: Denies: throat pain Card: Reports: chest pain Resp: Reports: dyspnea GI: Reports: nausea : Reports: difficulty voiding Musc: Denies: neck pain Medications/Allergies Home Medications Medication Instructions Recorded Confirmed Last Taken Type cpap mask and tubing #1 ea 04/22/20 08/09/23 Unknown Rx glucometer #1 ea 06/09/20 08/09/23 Unknown Rx aspirin 81 mg tablet,delayed 81 mg PO DAILY #90 tabs 07/15/20 08/09/23 07/31/23 Rx release cetirizine 10 mg tablet 10 mg PO DAILY allergy symptoms 90 09/09/21 08/09/23 07/31/23 Rx days #90 tabs Diabetic Shoes with 3 pairs of #1 ea 07/05/22 08/09/23 Unknown Rx inserts 3 inserts for diabetic shoes #1 ea 07/20/22 08/09/23 Unknown Rx Custom Molded Accommodative #1 ea 07/20/22 08/09/23 Unknown Rx Orthotics Diabetic Shoes #1 ea 07/20/22 08/09/23 Unknown Rx pen needle, diabetic 31 gauge x #100 ea 10/17/22 08/09/23 Unknown Rx 3/16 (BD Ultra-Fine Mini Pen Needle) albuterol sulfate 90 mcg/actuation 1 inh inhalation QID PRN Shortness 11/10/22 08/09/23 07/31/23 Rx aerosol inhaler (ProAir HFA) Of Breath #6.7 grams atorvastatin 10 mg tablet 10 mg PO DAILY #90 tabs 01/23/23 08/09/23 07/31/23 Rx clopidogrel 75 mg tablet 75 mg PO DAILY #90 tabs 02/05/23 08/09/23 07/31/23 Rx pantoprazole 20 mg tablet,delayed 20 mg PO DAILY #90 tabs 04/12/23 08/09/23 07/31/23 Rx release calcium polycarbophil 625 mg 625 mg PO BID dietary fiber #60 04/26/23 08/09/23 07/31/23 Rx tablet (FiberCon) tabs blood sugar diagnostic (Accu-Chek #100 ea 06/20/23 08/09/23 Unknown Rx Guide test strips) blood-glucose meter (Accu-Chek #1 ea 06/20/23 08/09/23 Unknown Rx Guide Glucose Meter) lancets (Accu-Chek Softclix #100 ea 06/20/23 08/09/23 Unknown Rx Lancets) losartan 50 mg tablet 25 mg PO DAILY 06/22/23 08/09/23 07/31/23 History blood glucose control high and low #1 ea 06/29/23 08/09/23 Unknown Rx solution (Accu-Chek Guide L1-L2 Control Solution) hydrochlorothiazide 25 mg tablet 25 mg PO DAILY #90 tabs 07/18/23 08/09/23 07/31/23 Rx amoxicillin 875 mg-potassium 1 tab PO BID #20 tabs 07/31/23 08/09/23 Unknown Rx clavulanate 125 mg tablet insulin detemir U-100 100 unit/mL 50 unit SUBCUT DAILY 07/31/23 08/09/23 07/31/23 History (3 mL) subcutaneous pen (Levemir FlexPen) sucralfate 1 gram tablet (Carafate) 1 g PO Q6H PRN dyspepsia 12 weeks 07/31/23 08/09/23 Unknown Rx #336 tabs sitagliptin phosphate 100 mg 100 mg PO DAILY #90 tabs 08/03/23 08/09/23 Unknown Rx tablet (Januvia) cephalexin 500 mg capsule 500 mg PO TID 7 days #21 caps 08/20/23 Unknown Rx fluticasone 250 mcg-salmeterol 50 1 inh inhalation BID #60 ea 08/20/23 Unknown Rx mcg/dose blistr powdr for inhalation (Advair Diskus) Allergies Allergy/AdvReac Type Severity Reaction Status Date / Time doxycycline Allergy Severe worsening Verified 07/31/23 10:55 symptoms, breathing issues metformin AdvReac Mild ADR-Diarrhe Verified 07/31/23 10:55 a PFSH Acute PFSH: Medical History ASHD (arteriosclerotic heart disease) Stents placed Cellulitis CKD (chronic kidney disease) stage 3, GFR 30-59 ml/min Combined pulmonary fibrosis and emphysema (CPFE) Community acquired pneumonia Congestive heart failure COPD (chronic obstructive pulmonary disease) with emphysema GERD (gastroesophageal reflux disease) Hyperlipidemia Hypertension with albuminuria Obesity (BMI 35.0-39.9 without comorbidity) KYLE on CPAP Osteoarthritis (arthritis due to wear and tear of joints) PAD (peripheral artery disease) Prolapse, uterovaginal Type 2 diabetes mellitus with diabetic polyneuropathy Urinary incontinence Surgical History H/O tubal ligation Hx of cholecystectomy Hx of heart artery stent S/P carpal tunnel release 02/23/2023 Rt CTS release and Rt thumb trigger finger release, Dr. Irvin Family History Mother Diabetes Heart disease Denies family history of Colon cancer Ovarian cancer Thyroid cancer CAD (coronary artery disease) Clotting disorder Dementia Hyperlipidemia Psychiatric illness Chronic kidney disease (CKD) Breast cancer Suicide Anesthesia complication Bleeding disorder Family history of premature coronary artery disease Lung disease Cancer Hypertension Uterine cancer Stroke Social History Smoking and tobacco/nicotine status: former use of tobacco/nicotine Quit status (tobacco/nicotine): has quit using Year quit tobacco: 9 years ago Alcohol intake: never Substance/Drug Use: never Vitals/I&O/Wt Last Vital Signs Temp 98.6 F 08/21/23 00:02 Pulse 91 08/20/23 23:50 Resp 15 08/20/23 23:40 BP 107/63 08/20/23 23:50 Pulse Ox 95 08/20/23 23:50 O2 Del Method Nasal Cannula 08/21/23 01:46 O2 Flow Rate 2 08/20/23 23:50 08/20/23 08/20/23 08/21/23 14:59 22:59 06:59 Intake Total 550 / 550 Balance 550 / 550 Weight last 48 hrs Weight 81.647 kg Physical Exam Narrative: Euvolemic Awake and alert Sinusitis Currently on 2 L Chest pain-free Pleasant and cooperative Nonfocal neuro exam GCS 15 Appropriate mood and affect S1, S2 No active wheezing or stridor Data 08/20/23 21:34 08/20/23 21:34 Micro: Microbiology 08/20/23 21:57 Blood Culture - Preliminary Blood SPECIMEN COLLECTED 08/20/23 21:57 Blood Culture - Preliminary Blood SPECIMEN COLLECTED A&P Assessment and plan (1) Urinary tract infection: Qualifiers: Hematuria presence: without hematuria Urinary tract infection type: acute cystitis Qualified Code(s): N30.00 - Acute cystitis without hematuria (2) Elevated troponin: (3) CKD (chronic kidney disease): (4) Urinary incontinence: (5) KYLE on CPAP: (6) COPD (chronic obstructive pulmonary disease) with emphysema: Qualifiers: Emphysema type: unspecified Qualified Code(s): J43.9 - Emphysema, unspecified (7) Type 2 diabetes mellitus with diabetic polyneuropathy: Qualifiers: 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 Qualified Code(s): E11.42 - Type 2 diabetes mellitus with diabetic polyneuropathy; Z79.4 - assisted (current) use of insulin (8) NSTEMI (non-ST elevated myocardial infarction): Plan Non-STEMI Significant delta troponin Start ACS protocol Currently chest pain-free History of coronary disease in the past Has 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 a cement truck driver in a while Currently on dual antiplatelet therapy Received loading dose of aspirin and Plavix Started therapeutic Lovenox Requested echo and D-dimer Acute on chronic kidney disease Clinically patient looks euvolemic High BNP X-ray showing vascular markings May initiate low-dose diuretic regimen which I would avoid at this point because of her low blood pressure UTI Fever, leukocytosis normal lactic acid No sign of sepsis .Respiratory panel is negative Continue ceftriaxone Patient has history of uterovaginal prolapse Full code Cardiac diet Will need cardiology consultation in the morning Acute hypoxia History of diastolic CHF Clinically euvolemic May initiate low-dose Lasix in the morning Wean off oxygen Does not use oxygen at home Attestations Medical Necessity Statement*: Anticipating more than 2 midnights Diagnoses Urinary tract infection N30.00 Hematuria presence: without hematuria Urinary tract infection type: acute cystitis Elevated troponin R79.89 CKD (chronic kidney disease) N18.9 Urinary incontinence R32 KYLE on CPAP G47.33 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 Emphysema type: unspecified Type 2 diabetes mellitus with diabetic polyneuropathy E11.42; Z79.4 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
--- NOTE | 2023-08-21 02:29 | USCV_ITS ---
Radha Henry Age: 58 Gender: F : 1965 Exam Date: 08/21/2023 02:52 Ordering Phys: Fabiana Meyer MD Technologist: VERNA Exam Location: [facility] [place] Indication: NSTEMI , febrile 100.6, malaise, hx COPD, IDDM, PAD, hypoxia. BP: 107 / 63 HR: 65 Rhythm: Sinus Technical Quality: Adequate MEASUREMENTS (Male / Female) Normal Values 2D ECHO LV Diastolic Diameter PLAX 4.5 cm 4.2 - 5.9 / 3.9 - 5.3 cm LV Systolic Diameter PLAX 3.2 cm IVS Diastolic Thickness 1.3 cm 0.6 - 1.0 / 0.6 - 0.9 cm IVS Systolic Thickness 2.0 cm LVPW Diastolic Thickness 1.1 cm 0.6 - 1.0 / 0.6 - 0.9 cm LVPW Systolic Thickness 1.2 cm LVOT Diameter 1.7 cm LV Ejection Fraction 2D Teich 55.8 % LV Ejection Fraction MOD 2C 54.0 % LV Ejection Fraction 2C AL 53.9 % LA Diameter 3.1 cm LA Width 4.4 cm LA Height 4.9 cm RA Width 2.9 cm RA Height 4.5 cm Aorta at Sinotubular Diameter 2.3 cm IVC Diameter 1.7 cm M-MODE Aortic Annulus Diameter 2.8 cm LA Ao Ratio MM 1.2 MV E Point Septal Separation 0.5 cm DOPPLER AV Peak Velocity 146.0 cm/s LVOT Peak Velocity 100.0 cm/s AV Area Cont Eq vti 1.6 cm squared AV Area Cont Eq pk 1.6 cm squared MV Area PHT 2.9 cm squared Mitral E to A Ratio 0.8 MV E' Velocity 45.5 cm/s Mitral E to MV E' Ratio 14.5 Mitral E to LV E' Lateral Ratio 13.6 Mitral E to LV E' Septal Ratio 15.8 TR Peak Velocity 236.0 cm/s TR Peak Gradient 22.3 mmHg TV Peak E Velocity 51.0 cm/s Right Atrial Pressure 5.0 mmHg Pulmonary Artery Systolic Pressu 27.3 mmHg PV Peak Velocity 98.0 cm/s RV Acceleration Time 0.1 s RV Ejection Time 0.4 s RV AcT/ET 0.3 FINDINGS Left Ventricle Mild left ventricular hypertrophy. Normal left ventricular size. Mild hypokinesis of the mid inferolateral wall segments. Overall LV function mildly reduced 50 to 55%. Grade 1 diastolic dysfunction. Right Ventricle Normal right ventricular size and systolic function. Right Atrium Normal right atrial size. Left Atrium Mildly dilated left atrium Mitral Valve Thickened mitral valve. Trace mitral valve regurgitation. Aortic Valve Thickened aortic valve. Trace aortic valve regurgitation. Tricuspid Valve Structurally normal tricuspid valve. Trace tricuspid valve regurgitation. Pulmonic Valve Pulmonic valve not well visualized. Pericardium No pericardial effusion. Aorta Normal size aortic root and proximal ascending aorta. IVC Normal IVC dimension with >50% respiratory change of the inferior vena cava. CONCLUSIONS 1. Mild concentric LVH. Overall LVEF is mildly reduced 50 to 55%. Mild hypokinesis of mid inferolateral segments. 2. No significant valvular abnormality noted. 3. Normal right heart and pulmonary pressures. Ronak Landa MD (Electronically Signed) Final Date: 21 August 2023 09:28 S
[2023-08-21] MEDS: enoxaparin 100 mg/mL Syringe 80 MG SUBCUT (03:17)
[2023-08-21] MEDS: clopidogrel 300 mg Tablet PO (03:17)
[2023-08-21 05:53] LABS: Basophils # 0.1 10^3/uL (0.0-0.1); Basophils % 0.6 %; Eosinophils % 0.3 %; Hematocrit 32.8 % (36-47); Lymphocytes # 1.6 10^3/uL (0.8-4.8); Lymphocytes % 14.5 %; Mean Corpuscular HGB Conc 30.5 g/dL (30-55); Mean Corpuscular Hemoglobin 27.9 pg (27-33); Mean Corpuscular Volume 91.4 fl (85-98); Monocytes # 0.5 10^3/uL (0.2-0.9); Monocytes % 4.9 %; Neutrophils # 8.53 10^3/uL (1.8-7.7); Neutrophils % 79.3 %; Nucleated Red Blood Cells % 0 %; Platelet Count 260 10^3/cmm (157-399); Red Blood Count 3.59 10^6/uL (3.85-5.65); Red Cell Distribution Width 14.6 % (12.1-15.1); White Blood Count 10.75 10^3/uL (3.29-11.43)
[2023-08-21 06:08] LABS: D Dimer 1.81 ug/mLFEU (0-0.59)
[2023-08-21 06:34] LABS: Anion Gap 15.4 (5-19); Blood Urea Nitrogen 41 mg/dL (6-20); C Reactive Protein 51.4 mg/L (0.0-4.9); Calcium 8.1 mg/dL (8.5-10.5); Carbon Dioxide 20 mmol/L (22-29); Chloride 104 mmol/L (98-107); Glomerular Filtration Rate 33.1 mL/min (90-130); Glucose 207 mg/dL (65-115); Magnesium 1.8 mg/dL (1.7-2.3); Osmolality Calculated 296 mOsm/kg (285-295); Potassium 4.4 mmol/L (3.5-5.1); Sodium 135 mmol/L (136-145)
[2023-08-21 06:35] LABS: Procalcitonin 3.12 ng/mL (0-0.5)
[2023-08-21 06:46] LABS: Glucose Point of Care 221 mg/dL (70-110)
[2023-08-21 07:11] LABS: Troponin 5 6HR 235.9 ng/L (0-10); Troponin 5 6HR Delta 190.9 ng/L (0-12)
[2023-08-21 07:58] LABS: Estmated Average Glucose 194; Hemoglobin A1C 8.4 % (4.0-6.0)
--- NOTE | 2023-08-21 08:19 | PC.PHAR ---
pt states she takes care of her own medications-rx written 06/22/23 losartan 50mg take 25mg daily rx filled 07/09/23 90d/s 50mg daily rx written 01/29/23-[facility] states never got new rx for the 25mg daily pt states been taking 25mg daily-notes are made in the pharmacy comments
[2023-08-21] MEDS: atorvastatin 40 mg Tablet 80 MG PO (08:23)
[2023-08-21] MEDS: aspirin 81 mg EC Tablet PO (08:23)
[2023-08-21] MEDS: clopidogrel 75 mg Tablet PO (08:23)
[2023-08-21] MEDS: cefTRIAXone 1,000 MG in sodium chloride 0.9% (plus) 50 ML 100 MG IV (08:24)
[2023-08-21] MEDS: insulin lispro 100 unit/1 mL SUBCUT ×2 (08:24→17:44)
--- NOTE | 2023-08-21 08:55 | P.CONIM_ITS ---
Providers/Reason For Consult Consulting Physician/Specialty*: cardiology Reason for Consult*: NSTEMI Requesting Physician: MD Mitch Attending Physician: Melia Last MD Primary Care Provider: Cameron Frost MD History of Present Illness History of Present Illness Radha Henry is a 58 year old female who was admitted yesterday with intermittent fever and very atypical left-sided chest pain. Ms. Castro has a significant histo ry of coronary artery disease with previous episodes of NSTEMI treated with a angioplasty in 2016 and 2019. She was ruled in for NSTEMI with elevated cardiac troponin enzymes and ST changes on the EKG. Currently patient is being treated for ACS since early this morning. She is comfortable with the minimal left sided upper chest pain radiating to the left arm. The pain is a somewhat atypical with the element of mild tenderness as well. However patient states this has been with her previous a episodes of pain at the time of heart attack. Patient is also being treated for possible UTI with intravenous antibiotics. A CT abdomen was unremarkable. The serial cardiac enzymes showed significant elevation consistent with NSTEMI. Her creatinine at baseline is 1.5-1.7. The echo done earlier this morning showed mild hypokinesis of inferolateral varner. Overall EF is 50 to 55%. Review of Systems Narrative: In addition to a ongoing intermittent episode of chest pain the rest of the detailed 10 point systemic review revealed burning micturition systems with her ongoing some bladder related problems. Rest of systemic review is unremarkable. Currently she is not having a fever the last episode of fever was yesterday evening 100.6. Medications/Allergies Home Medications Medication Instructions Recorded Confirmed Last Taken Type cpap mask and tubing #1 ea 04/22/20 08/21/23 Unknown Rx glucometer #1 ea 06/09/20 08/21/23 Unknown Rx Diabetic Shoes with 3 pairs of #1 ea 07/05/22 08/21/23 Unknown Rx inserts 3 inserts for diabetic shoes #1 ea 07/20/22 08/21/23 Unknown Rx Custom Molded Accommodative #1 ea 07/20/22 08/21/23 Unknown Rx Orthotics Diabetic Shoes #1 ea 07/20/22 08/21/23 Unknown Rx pen needle, diabetic 31 gauge x #100 ea 10/17/22 08/21/23 Unknown Rx 3/16 (BD Ultra-Fine Mini Pen Needle) albuterol sulfate 90 mcg/actuation 1 inh inhalation QID PRN Shortness 11/10/22 08/21/23 07/31/23 Rx aerosol inhaler (ProAir HFA) Of Breath #6.7 grams blood sugar diagnostic (Accu-Chek #100 ea 06/20/23 08/21/23 Unknown Rx Guide test strips) blood-glucose meter (Accu-Chek #1 ea 06/20/23 08/21/23 Unknown Rx Guide Glucose Meter) lancets (Accu-Chek Softclix #100 ea 06/20/23 08/21/23 Unknown Rx Lancets) losartan 50 mg tablet 25 mg PO DAILY 06/22/23 08/21/23 07/31/23 History blood glucose control high and low #1 06/29/23 08/21/23 Unknown Rx solution (Accu-Chek Guide L1-L2 Control Solution) insulin detemir U-100 100 unit/mL 25 unit SUBCUT BID 07/31/23 08/21/23 07/31/23 History (3 mL) subcutaneous pen (Levemir FlexPen) sucralfate 1 gram tablet (Carafate) 1 g PO Q6H PRN dyspepsia 12 weeks 07/31/23 08/21/23 Unknown Rx #336 tabs aspirin 81 mg tablet,delayed 81 mg PO BEDTIME 08/21/23 08/21/23 Unknown History release atorvastatin 10 mg tablet 10 mg PO BEDTIME 08/21/23 08/21/23 Unknown History calcium polycarbophil 625 mg 625 mg PO BID PRN dietary fiber 08/21/23 08/21/23 Unknown History tablet (FiberCon) cetirizine 10 mg tablet 10 mg PO BEDTIME allergy symptoms 08/21/23 08/21/23 Unk nown History clopidogrel 75 mg tablet 75 mg PO BEDTIME 08/21/23 08/21/23 Unknown History hydrochlorothiazide 25 mg tablet 25 mg PO QAM 08/21/23 08/21/23 Unknown History pantoprazole 20 mg tablet,delayed 20 mg PO BEDTIME 08/21/23 08/21/23 Unknown History release sitagliptin phosphate 100 mg 100 mg PO QAM 08/21/23 08/21/23 Unknown History tablet (Januvia) Allergies Allergy/AdvReac Type Severity Reaction Status Date / Time doxycycline Allergy Severe worsening Verified 08/21/23 08:08 symptoms, breathing issues oxybutynin Allergy dry mouth Verified 08/21/23 08:19 metformin AdvReac Mild ADR-Diarrhe Verified 08/21/23 08:08 a Current Medications Generic Name Dose Route Start Last Admin Trade Name Mark PRN Reason Stop Dose Admin Aspirin 81 mg 08/21/23 09:00 08/21/23 08:23 Aspirin 81 Mg Ec Tablet PO 81 mg DAILY MITZY Administration Atorvastatin Calcium 80 mg 08/21/23 09:00 08/21/23 08:23 Atorvastatin 40 Mg Tablet PO 80 mg DAILY MITZY Administration Clopidogrel Bisulfate 75 mg 08/21/23 09:00 08/21/23 08:23 Clopidogrel 75 Mg Tablet PO 75 mg DAILY MITZY Administration Enoxaparin Sodium 80 mg 08/21/23 03:00 08/21/23 03:17 Enoxaparin 100 Mg/Ml Syringe 1 mg/kg (80 mg) 80 mg SUBCUT Administration Q12H MITYZ Ceftriaxone Sodium 1,000 mg/ 50 mls @ 100 mls/hr 08/21/23 09:00 08/21/23 08:43 Sodium Chloride IV 0 mls/hr DAILY MITZY Infusion Protocol Insulin Human Lispro 0 unit 08/21/23 08:00 08/21/23 08:24 Insulin Lispro 100 Unit/1 Ml SUBCUT 8 unit TIDWM MITZY Administration Protocol PFSH Acute PFSH: Medical History ASHD (arteriosclerotic heart disease) Stents placed Cellulitis CKD (chronic kidney disease) stage 3, GFR 30-59 ml/min Combined pulmonary fibrosis and emphysema (CPFE) Community acquired pneumonia Congestive heart failure COPD (chronic obstructive pulmonary disease) with emphysema GERD (gastroesophageal reflux disease) Hyperlipidemia Hypertension with albuminuria Obesity (BMI 35.0-39.9 without comorbidity) KYLE on CPAP Osteoarthritis (arthritis due to wear and tear of joints) PAD (peripheral artery disease) Prolapse, uterovaginal Type 2 diabetes mellitus with diabetic polyneuropathy Urinary incontinence Surgical History H/O tubal ligation Hx of cholecystectomy Hx of heart artery stent S/P carpal tunnel release 02/23/2023 Rt CTS release and Rt thumb trigger finger release, Dr. Irvin Family History Mother Diabetes Heart disease Denies family history of Colon cancer Ovarian cancer Thyroid cancer CAD (coronary artery disease) Clotting disorder Dementia Hyperlipidemia Psychiatric illness Chronic kidney disease (CKD) Breast cancer Suicide Anesthesia complication Bleeding disorder Family history of premature coronary artery disease Lung disease Cancer Hypertension Uterine cancer Stroke Social History Smoking and tobacco/nicotine status: former use of tobacco/nicotine Quit status (tobacco/nicotine): has quit using Year quit tobacco: 9 years ago Alcohol intake: never Substance/Drug Use: never Vitals/I&O/Wt Last Vital Signs Temp 97.5 F L 08/21/23 07:39 Pulse 62 08/21/23 07:39 Resp 19 H 08/21/23 07:39 BP 130/67 08/21/23 07:39 Pulse Ox 100 08/21/23 07:39 O2 Del Method Nasal Cannula 08/21/23 07:39 O2 Flow Rate 2 08/21/23 03:39 08/20/23 08/21/23 08/21/23 22:59 06:59 14:59 Intake Total 850 / 850 31.667 / 31.667 Balance 850 / 850 31.667 / 31.667 Weight last 48 hrs Weight 202 lb 2 oz Weight 180 lb Physical Exam Narrative: Patient lying comfortably in her bed and she is afebrile. Her vitals are stable. Blood pressure 122/70. Pulse 76/min regular. HENMT: OTHER: Normal Eye: OTHER: Unremarkable Neck/C-Spine: OTHER: Normal Resp: OTHER: Good air entry bilaterally. Minimal Rales at the left base. Cardio: OTHER: Normal first and second heart sounds. No added sounds. There is no JVD. No lower extremity edema. GI: OTHER: Abdominal soft nontender bowel sounds audible. Extremity: OTHER: Normal. No lower extremity extremity edema. Neuro: OTHER: Grossly intact. Skin: OTHER: Warm and dry. Data 08/21/23 04:00 08/21/23 04:00 Micro: Microbiology 08/20/23 21:57 Blood Culture - Preliminary Blood SPECIMEN COLLECTED 08/20/23 21:57 Blood Culture - Preliminary Blood SPECIMEN COLLECTED A&P Assessment and plan (1) NSTEMI (non-ST elevated myocardial infarction): 58-year-old lady with history of coronary disease with previous angioplasties twice now admitted with atypical chest pain however she is ruled in with a significant elevation of cardiac enzymes. 1. NSTEMI. Currently clinically she is stable. No heart failure clinically. 2. Possible a UTI for which she is being currently treated. 3. Her echo showed mild hypokinesis of inferolateral wall, possibly related to her current event of NSTEMI. Plan: 1. Recommend cardiac catheterization. With mildly elevated creatinine 1.5 I will hydrate her with normal saline prior to the procedure. 2. Discussed with the patient about the cardiac procedure. She is well aware of the procedure from her previous experiences. Explained the procedure, discussed the risks and the benefits and alternatives. Patient agreed for the procedure. Coding Level of Care Code Acute Code for [facility] Diagnoses NSTEMI (non-ST elevated myocardial infarction) I21.4
--- NOTE | 2023-08-21 09:58 | XACV_ITS ---
Exam Room: 2 Ht: 160 cm Wt: 92 kg BSA: 2.06 m2 Gender: Female : 1965 Any Known Allergies: Other Exam Priority: Routine Procedure(s): Procedure Description: Diagnostic procedure Procedure Description: Coronary Angiography Diagnostic Cath Status: Urgent Conclusions 1. Diagnostic coronary angiogram Left main: Normal Left anterior descending artery: Large vessel. Mild ISR in the previously placed stent in the proximal mid segment. There is a 50 to 60% focal stenosis in the mid segment distal to the previously placed stent. The distal vessel has moderate diffuse disease around the apex. Left circumflex artery: codominant vessel. Mild 2 to 30% diffuse disease in the mid vessel. OM 2 medium size vessel with a severe diffuse disease from ostium to proximal and mid segments. Right coronary artery: Codominant vessel. 100% chronically occluded (RN OR LPN). Very limited collaterals from left system to the distal RCA. Recommendations: Medical management of CAD and risk factors. . Diagnostic RX Recommendation: medical therapy and/or counseling Post Op Diagnosis: Description: Coronary artery disease Description: NSTEMI Pressures Phase:Rest AO : 136 / 80 ( 106 ) @ 10:58:00 AM 132 / 83 ( 106 ) @ 10:58:00 AM 157 / 102 ( 129 ) @ 11:04:00 AM 142 / 93 ( 117 ) @ 11:08:00 AM Clinical Evaluation EBL: 5mL-10mL Procedural Details Procedure Consent Obtained. Pre-Procedure Time Out. Identified patient by full name and date of as verbalized by the patient/guarantor. Does the consent match the physician's order: Yes. Accurate & Complete Informed Consent: Yes. Inpatient/Outpatient History & Physical on Chart: Yes. If H&P is completed, is and addenduem needed: No; If yes, is the addendum complete: N/A. Visualize and Verify Site with Patient/Guarantor: N/A. Relevant Radiology Images available: Yes. Pre-op teaching completed and patient verbalized understanding. The risks, benefits, and alternatives of sedation and/or procedure were discussed by physician. The patient agrees to continue. Procedure started. Current Diagnosis : NSTEMI. [facility] Clinical Fraility Score: 3: Managing Well. Case Supervisor Indications: ACS > 24 hours. Chest Pain Symptom Assessment: Typical Angina Symptoms. Current diagnosis: NSTEMI. PERRLA. Strong, equal hand supervisor contingents bilaterally. Lungs clear x 5 lobes. IV Site on Arrival: 18 gauge in the right anticubital. IV Fluids: 0.9% NaCl at KVO. 0 mL infused prior to laboratory worker. Oxygen started at 2liters/min via nasal canula. right groin was prepped with chloroprep then draped in the usual sterile fashion. right radial was prepped with chloroprep then draped in the usual sterile fashion. Baseline sample Acquired. HR: 82 BPM. Physician notified. Physician arrived. Lidocaine 1% infiltrated to the right radial. Arterial access obtained. Physician scrubbed in. Immediate Pre-Procedure Time Out. Correct Patient: Yes; Correct Procedure: Yes; Correct Site: Yes; Correct Patient Position: Yes; Correct Supplies: Yes; Dried Flammable Prep: Yes; Blood Products Available: Yes;. A 6 kenyan JL3.5 catheter in over wire. Multiple views taken of left coronary artery. Catheter removed over the exchange wire. A 6 kenyan JR4 catheter in over wire. Multiple views taken of right coronary artery. Catheter removed over the exchange wire. A TR Band was successful obtaining hemostatsis at the Right Radial artery insertion site. Post Procedure: Pulses reassessed and unchanged. PERRLA. Strong, equal hand supervisor contingents bilaterally. No VTE prophylaxis required. Medication's Wasted: Nitro = 49.8 mcg. Total IV fluids: 45 mL. Medication's Wasted: Other = Versed 1 mg. Complications: None. Estimated blood loss: 5mL-10mL. Responsiveness - Normal response to verbal stimuli; alert and oriented, PERRLA. Airway - Unaffected, no intervention required; spontaneous ventilation. Circulation: W/N/L, pulses unchanged. Nausea/Vomiting: No. Procedure completed. Patient transferred by wheelchair to CPRU. Vital chart was stopped. Access Site Site: Right Radial artery Sheath Size: 6 Fr Hemostasis Method: TR Band Hemostasis Success: Successful Procedure Medications Start: 10:42 AM Stop: 10:42 AM Medication: Fentanyl Amount: 50 mcg Route: I.V. Start: 10:45 AM Stop: 10:45 AM Medication: Versed Amount: 1 mg Route: I.V. Start: 10:50 AM Stop: 10:50 AM Medication: Versed 1 mg and Fentanyl 25 mcg Amount: 1 Route: I.V. Start: 10:53 AM Stop: 10:53 AM Medication: Nitrogylcerin Amount: 200 mcg Route: I.A. Start: 10:57 AM Stop: 10:57 AM Medication: Fentanyl Amount: 25 mcg Route: I.V. Start: 11:10 AM Stop: 11:10 AM Medication: Versed Amount: 1 mg Route: I.V. I, the attending physician, have reviewed and verified all procedure medications. Yes, all medications given per verbal order History/Risk Factors Hypertension: Yes Dyslipidemia: No Peripheral Arterial Disease (PAD): Yes Myocardial Infarction ([place]): No Obesity: Yes Renal Disease: No Prior Interventions PCI: Yes CABG: No Valve Surgery: No Date of PCI: 06/18/2018 Report Signatures Finalized by Ronak Landa MD on 08/21/2023 11:55 AM
[2023-08-21] MEDS: sodium chloride 0.9% 1,000 ML 150 ML IV (10:11)
--- NOTE | 2023-08-21 13:18 | PM.MISC ---
Miscellaneous Note Note: Seen today. Will be going for cath this morning.
--- NOTE | 2023-08-21 13:54 | PC.NURSE ---
Patient comes to CSU from rn cardiac cath at 1345.
[2023-08-21 14:02] LABS: Glucose Point of Care 130 mg/dL (70-110)
[2023-08-21 17:10] LABS: Glucose Point of Care 278 mg/dL (70-110)
[2023-08-21] MEDS: ranolazine (12HR) 500 mg Tablet PO (17:44)
--- NOTE | 2023-08-21 18:25 | PC.NURSE ---
Patient came from pathology laboratory aides teacher with a right radial TR-band. 2ml's of air is removed at 1409. 2ml's of air is removed at 1458. 2ml's of air is removed at 1520. 2ml's of air is removed at 1610. 2ml's of air is removed at 1700. 2ml's of air is removed at 1725. 2ml's of air is removed at 1755. 2ml's of air is removed at 1805. TR-band is removed at 1810. No hematoma is noted. Patient tolerated well.
[2023-08-21 20:59] LABS: Glucose Point of Care 114 mg/dL (70-110)
[2023-08-21] MEDS: ondansetron 2 mg/ML SDV 2 mL 4 MG IVP (22:21)
[2023-08-22] VITALS (95 sets, daily range): BP systolic 94–173; BP diastolic 48–96; PULSE 49–146; RESP 16–37; TEMP 36.7–37.4; O2SAT 79–100
[2023-08-22 04:21] LABS: Basophils # 0.1 10^3/uL (0.0-0.1); Basophils % 0.5 %; Eosinophils # 0.2 10^3/uL (0.0-0.8); Eosinophils % 2.2 %; Hematocrit 35.4 % (36-47); Lymphocytes # 1.9 10^3/uL (0.8-4.8); Lymphocytes % 19.7 %; Mean Corpuscular HGB Conc 29.4 g/dL (30-55); Mean Corpuscular Hemoglobin 27.7 pg (27-33); Mean Corpuscular Volume 94.1 fl (85-98); Mean Platelet Volume 10.8 fL (7.4-10.4); Monocytes # 0.9 10^3/uL (0.2-0.9); Monocytes % 9.3 %; Neutrophils # 6.43 10^3/uL (1.8-7.7); Nucleated Red Blood Cells % 0 %; Platelet Count 217 10^3/cmm (157-399); Red Blood Count 3.76 10^6/uL (3.85-5.65); Red Cell Distribution Width 14.6 % (12.1-15.1); White Blood Count 9.47 10^3/uL (3.29-11.43)
[2023-08-22 04:44] LABS: Blood Urea Nitrogen 36 mg/dL (6-20); Calcium 8.6 mg/dL (8.5-10.5); Carbon Dioxide 21 mmol/L (22-29); Chloride 100 mmol/L (98-107); Glomerular Filtration Rate 38.6 mL/min (90-130); Glucose 174 mg/dL (65-115); Osmolality Calculated 287 mOsm/kg (285-295); Sodium 132 mmol/L (136-145)
[2023-08-22 04:52] LABS: Anion Gap 16.4 (5-19); Potassium 5.4 mmol/L (3.5-5.1)
[2023-08-22 06:28] LABS: Glucose Point of Care 196 mg/dL (70-110)
--- NOTE | 2023-08-22 08:34 | DCPLANNER ---
Message sent to pulmonology for follow up on abnormal CT scan
[2023-08-22] MEDS: metoprolol tartrate 1 mg/1 mL SDV 5 mL 5 MG IVP (08:41)
[2023-08-22] MEDS: aspirin 81 mg EC Tablet PO (08:41)
[2023-08-22] MEDS: ranolazine (12HR) 500 mg Tablet PO ×2 (08:42→18:00)
[2023-08-22] MEDS: atorvastatin 40 mg Tablet 80 MG PO (08:42)
[2023-08-22] MEDS: cefTRIAXone 1,000 MG in sodium chloride 0.9% (plus) 50 ML 100 MG IV (08:42)
[2023-08-22] MEDS: clopidogrel 75 mg Tablet PO (08:42)
[2023-08-22] MEDS: insulin lispro 100 unit/1 mL SUBCUT ×3 (08:44→18:00)
[2023-08-22 09:12] LABS: ABG PH Result 7.36 (7.35-7.45); Alveolar-Arterial Oxygen Gradi 3.6 mmHg (5-10); Arterial Blood Gas Hematocrit 32.1 % (37-47); Base Excess ABG -4.1 mmol/L (-2.0-2.0); Blood Gas Allen Test Pos; Blood Gas Operator Identificat WALCI; Blood Gas Sample Site Radial, left; Blood Gas Sample Type Arterial; Carboxyhemoglobin 1.1 %THgb (0.4-20.1); HCO3 ABG 20.9 mmol/L (22-26); Ionized Calcium Level - ABG 1.2 mmol/L (1.1-1.4); Methemoglobin 0.8 % (0.4-1.5); Oxygen Device NC; Oxygen Saturation ABG 95.8; PO2 ABG 76.5 mmHg (80.0-100.0); Potassium Level - ABG 5.1 mmol/L (3.5-5.0); Total Hemoglobin 10.5 g/dL (12-16)
--- NOTE | 2023-08-22 09:49 | PC.NURSE ---
Patients HR had been running in the 150's for 45-60 minutes this morning. The HR would bounce to 90 for a few seconds then back to 140-150's. Provider was notified and she ordered metoprolol 5mg IVP once. This was given at 0841. Her vitals at this time were HR was 146 and BP 129/99. The metoprolol was given and her vitals were being monitored while nurse was preparing her other medications for administration. Patient then took her PO medications. Nurse was starting to hang her ceftriaxone when patient became unresponsive and no pulse. Nurse call a code and chest compressions were started at 0856.
[2023-08-22 09:50] LABS: Lactate (Lactic Acid level) 2.4 mmol/L (0.5-2.2)
[2023-08-22 09:51] LABS: Alanine Aminotransferase 69 U/L (0-33); Albumin Level 3.1 g/dL (3.5-5.2); Alkaline Phosphatase 101 U/L (35-105); Anion Gap 19.5 (5-19); Aspartate Amino Transferase 78 U/L (0-32); Basophils # 0.1 10^3/uL (0.0-0.1); Basophils % 0.5 %; Blood Urea Nitrogen 35 mg/dL (6-20); Calcium 8.7 mg/dL (8.5-10.5); Carbon Dioxide 19 mmol/L (22-29); Chloride 97 mmol/L (98-107); Eosinophils # 0.1 10^3/uL (0.0-0.8); Eosinophils % 0.9 %; Globulin 3.4 g/dL (1.3-4.6); Glomerular Filtration Rate 33.1 mL/min (90-130); Glucose 281 mg/dL (65-115); Hematocrit 33.2 % (36-47); Lymphocytes # 2.1 10^3/uL (0.8-4.8); Lymphocytes % 21.3 %; Mean Corpuscular Hemoglobin 27.8 pg (27-33); Mean Corpuscular Volume 89.7 fl (85-98); Mean Platelet Volume 11.2 fL (7.4-10.4); Monocytes # 0.6 10^3/uL (0.2-0.9); Monocytes % 6.1 %; Neutrophils # 6.89 10^3/uL (1.8-7.7); Neutrophils % 70.8 %; Nucleated Red Blood Cells % 0 %; Osmolality Calculated 288 mOsm/kg (285-295); Phosphorus 3.6 mg/dL (2.5-4.5); Platelet Count 213 10^3/cmm (157-399); Potassium 5.5 mmol/L (3.5-5.1); Red Cell Distribution Width 14.6 % (12.1-15.1); Sodium 130 mmol/L (136-145); Total Bilirubin 0.5 mg/dL (0.15-1.2); Total Protein 6.5 g/dL (6.6-8.7); White Blood Count 9.73 10^3/uL (3.29-11.43)
[2023-08-22 09:55] LABS: Troponin(5th) Baseline 280 ng/L (0-10)
[2023-08-22 09:56] LABS: D Dimer 2.42 ug/mLFEU (0-0.59)
--- NOTE | 2023-08-22 09:59 | ECG_ITS ---
[facility] Test Date: 2023-08-22 Pat Name: Radha Henry Department: Room: ICU11 Gender: Female Associate Professor Of Geology: : 1965 Requested By: Ronak Landa Order Number: [id number] Reading MD: Ronak Landa M.D. Measurements Intervals [place] Rate: 72 P: 23 CT: 300 QRS: -70 QRSD: 134 T: 221 QT: 557 QTc: 612 Interpretive Statements SINUS RHYTHM WITH frequent PVCs in a bigeminal rhythm ST changes with Q waves in the inferior leads, old inferior NM Lateral ST changes suggestive of cardiac ischemia Compared to previous EKG on 10/20/2022, frequent PVCs are new findings Electronically Signed On 08-23-2023 13:23:26 LEAD NET SOFTWARE DEVELOPER by Ronak Landa M.D. [email or web address] at stone countyRoot Metricsbrown memorial hospital.[employer]/store/[id number]
--- NOTE | 2023-08-22 09:59 | XRR_ITS ---
PROCEDURE INFORMATION: Exam: XR Chest Exam date and time: 08/22/2023 11:07 AM Age: 58 years old Clinical indication: Shortness of breath; Additional info: Post cpr, crackles TECHNIQUE: Imaging protocol: Radiologic exam of the chest. Views: 1 view. COMPARISON: CT angio chest w abd pel w con 08/20/2023 10:49 PM FINDINGS: Lungs: Vascular engorgement, interstitial edema, and mild alveolar edema superimposed upon chronic fibrosis. Congestive heart failure is also present. Pleural spaces: No pneumothorax. Heart/Mediastinum: See Vasculature finding. Vasculature: Mild cardiomegaly and uncoiling of the thoracic aorta. Bones/joints: Unremarkable. XR/XR chest 1V portable [id number] IMPRESSION: Chronic fibrosis with superimposed CHF.
--- NOTE | 2023-08-22 10:01 | ECG_ITS ---
[facility] Test Date: 2023-08-22 Pat Name: Radha Henry Department: Room: ICU11 Gender: Female Data Center Operator: : 1965 Requested By: Ronak Landa Order Number: [id number] Reading MD: Ronak Landa M.D. Measurements Intervals [place] Rate: 68 P: 3 NV: 165 QRS: -18 QRSD: 118 T: -11 QT: 436 QTc: 466 Interpretive Statements SINUS RHYTHM LOW QRS VOLTAGE IN PRECORDIAL LEADS [QRS DEFLECTION < 1.0 mV IN CHEST LEADS] ST changes suggestive of ischemia ST elevation with Q waves in the inferior leads are old finding Compared to ECG 08/20/2023 23:42:53 The frequent PVCs are no longer present Electronically Signed On 08-23-2023 13:21:32 PLUMBING TECHNICIAN by Ronak Landa M.D. [id number]
[2023-08-22] MEDS: heparin drip 25,000 UNIT/500 ML PREMIX 25.94 UNIT IV (10:06)
[2023-08-22] MEDS: heparin 5,000 unit/mL INJ 1 mL 5000 UNIT IVP (10:15)
[2023-08-22 10:22] LABS: Thyroid Stimulating Hormone 3.62 uIU/mL (0.27-4.20)
--- NOTE | 2023-08-22 10:50 | XR_ITS ---
WS: [id number] PORTABLE CHEST HISTORY: PICC line COMPARISON: 08/22/2023 Right-sided PICC line in good position with tip in the distal SVC towards the caval junction. Diffuse scattered pulmonary opacifications throughout both lungs, unchanged. No pleural effusion or p neumothorax. Cardiac size: Mildly enlarged cardiac silhouette. Mediastinum/Aorta: Atherosclerosis aorta. No osseous abnormality seen. IMPRESSION: RIGHT PICC line in good position with tip in the SVC atrial junction.
--- NOTE | 2023-08-22 11:30 | PC.NURSE ---
Triple lumen PICC placed to right brachial vein. Referred for PICC line due to poor access and need for vasopressors and heparin. Risks and benefits of procedure discussed with patient and family and informed consent obtained. Right arm assessed with right basilic vein measuring 3.7 mm, straight and apparent best choice for placement. Able to gain access, but unable to thread guide wire. Using sterile technique and MST, right brachial vein accessed x 1 stick with successful threading of guide wire. Mid-arm circumference measured 10 cm from right AC 41 cm. Trimmed cath 40 cm with 1.5 cm external length noted. CXR shows tip in SVC, in good position for use per radiologist. Line secured with stat-lock. Insertion site covered with Biopatch, gauze, and TSM. Dressing due to be changed tomorrow, 08/23/23. Report given to bedside nurseCandelario.
--- NOTE | 2023-08-22 12:34 | ECG_ITS ---
[facility] Test Date: 2023-08-22 Pat Name: Radha Henry Department: Room: ICU11 Gender: Female Campus Ambassador: : 1965 Requested By: Melia Last Order Number: [id number] Go MD: Ronak Landa M.D. Measurements Intervals [place] Rate: 68 P: 36 FL: 155 QRS: -29 QRSD: 111 T: -14 QT: 395 QTc: 421 Interpretive Statements SINUS RHYTHM Incomplete right bundle branch block ST changes suggestive of ischemia Compared to ECG 08/22/2023 10:01:54 No significant changes Electronically Signed On 08-23-2023 13:19:26 COLD STORAGE SUPERINTENDENT by Ronak Landa M.D. [email or web address] [email or web address]/[id number]
[2023-08-22] MEDS: DOPamine drip 400 MG/250 ML PREMIX 17.37 MG IV (12:51)
[2023-08-22 12:57] LABS: Glucose Point of Care 223 mg/dL (70-110)
--- NOTE | 2023-08-22 15:25 | ECG_ITS ---
[facility] Test Date: 2023-08-22 Pat Name: Radha Henry Department: Room: ICU11 Gender: Female Umbrella Tipper Machine: : 1965 Requested By: Ronak Landa Order Number: [id number] Reading MD: Ronak Landa M.D. Measurements Intervals [place] Rate: 66 P: 16 [place]: 166 QRS: -24 QRSD: 107 T: -9 QT: 423 QTc: 444 Interpretive Statements SINUS RHYTHM INCOMPLETE RIGHT BUNDLE BRANCH BLOCK [90+ ms QRS DURATION, TERMINAL R IN V1/V2, 40+ ms S IN I/aVL/V4/V5/V6] Old inferior myocardial function ST changes suggestive of ischemia Compared to ECG 08/22/2023 12:34:57 No significant change Electronically Signed On 08-23-2023 13:32:01 TATTOO TECHNICIAN by Ronak Landa M.D. [email or web address] [email or web address] community [id number]
[2023-08-22 15:40] LABS: Troponin 5 6HR 329.6 ng/L (0-10); Troponin 5 6HR Delta 49.6 ng/L (0-12)
--- NOTE | 2023-08-22 16:07 | PC.NURSE ---
received Patient from CSU staff at approximately 0930. Patient is alert to person, place, time, and situation. SPO2 97% on 10L oxymask but titrating down. Heart rate variable between 90-140's, Dr abel at bedside. Started on heparin drip. Patient is very sensitive to dopamine and per Dr Abel dopamine started at levels lower than our standard dopamine protocol dosing (see message to nurse order).
--- NOTE | 2023-08-22 16:29 | PM.PN ---
Subjective Subjective: This morning patient had an episode of unexplained bradycardia followed by asystole requiring 20-30 seconds of CPR.? Patient did not receive adrenaline or atropine. CPR was initiated. Within 30 seconds ROSC was achieved. No epinephrine or other ACLS medications were given. Patient was awake alert and talking at that point. Heart rate noted to be 130s to 150s again. Ring Cutter Lathe Operator also at bedside. Patient given amiodarone 150 push. Heart rate dropped down to 20s. Patient remained conscious throughout. Blood pressure stable. Dopamine drip started. Patient transferred to ICU. Family updated at bedside. Patient reports that at home she does have palpitations and feels her heart is racing especially during the morning hours however she stated that I thought this was just a part of having a heart attack in the past. . Otherwise she is unaware of A-fib or any other arrhythmias that she has been diagnosed with previously. PICC line was ordered. Family was updated periodically until patient was deemed stable. Ring Cutter Lathe Operator and I updated family personally. Vitals/I&O/Wt Last Vital Signs Temp 98.1 F 08/22/23 13:00 Pulse 67 08/22/23 13:00 Resp 19 H 08/22/23 13:00 BP 123/58 08/22/23 13:00 Pulse Ox 100 08/22/23 13:00 O2 Del Method Nasal Cannula 08/22/23 13:00 O2 Flow Rate 2 08/22/23 13:00 08/22/23 08/22/23 08/22/23 06:59 14:59 22:59 Intake Total 400 / 1546.667 283.340 / 283.340 Balance 400 / 1546.667 283.340 / 283.340 Weight last 48 hrs Weight 92.646 kg Weight 91.682 kg Weight 81.647 kg Physical Exam Narrative: Patient laying comfortably. No respiratory distress. Vitals stable on low-dose of dopamine. Lungs auscultation revealed mild rales at both lung bases bilaterally. Cardiovascular exam normal first and second heart sounds. No added sounds Lower extremities: Mild edema at the ankles Skin: Warm and dry Neuro: Intact Data 08/22/23 09:07 08/22/23 09:07 Micro: Microbiology 08/20/23 22:37 Urine Culture - Preliminary Urine,Clean Catch Gram Negative Rods 08/20/23 21:57 Blood Culture - Preliminary Blood NEGATIVE TO DATE 08/20/23 21:57 Blood Culture - Preliminary Blood NEGATIVE TO DATE A&P Assessment and plan (1) NSTEMI (non-ST elevated myocardial infarction): (2) Urinary tract infection: Qualifiers: Hematuria presence: without hematuria Urinary tract infection type: acute cystitis Qualified Code(s): N30.00 - Acute cystitis without hematuria (3) Elevated troponin: (4) CKD (chronic kidney disease): (5) KYLE on CPAP: (6) COPD (chronic obstructive pulmonary disease) with emphysema: Qualifiers: Emphysema type: unspecified Qualified Code(s): J43.9 - Emphysema, unspecified (7) Type 2 diabetes mellitus with diabetic polyneuropathy: Qualifiers: Diabetes mellitus terminal supervisor insulin use: with terminal supervisor use Qualified Code(s): E11.42 - Type 2 diabetes mellitus with diabetic polyneuropathy; Z79.4 - longterm (current) use of insulin (8) Congestive heart failure: Qualifiers: Heart failure chronicity: acute Heart failure type: diastolic Qualified Code(s): I50.31 - Acute diastolic (congestive) heart failure (9) CKD (chronic kidney disease) stage 3, GFR 30-59 ml/min: (10) Osteoarthritis (arthritis due to wear and tear of joints): Qualifiers: Osteoarthritis location: hand Osteoarthritis type: primary Laterality: right Qualified Code(s): M19.041 - Primary osteoarthritis, right hand (11) Hyperlipidemia: (12) GERD (gastroesophageal reflux disease): (13) PAD (peripheral artery disease): Plan #Non-STEMI #Tachy-Jt syndrome #Atrial fibrillation with frequent PVCs #Bradycardia with subsequent asystole #HTN #PAD #Acute hypoxia requiring O2, not on O2 at home, 2/2 to HF #Acute congestive heart failure Significant delta troponin start heparin drip Currently chest pain-free History of coronary disease in the past continue aspirin, plavix echo reviewed continue dopamine drip pt may need pacemaker at some point continue to monitor in icu place [place]c [place], [address] X-ray showing vascular markings pt fluid overloaded will start on lasix 40 IV BID - monitor in icu - repeat labs cmp, cbc, mag, - check ptt, continue heparin drip - cardiology on board #Acute on chronic kidney disease #Cardiorenal syndrome Cr 1.6 [place], [address] X-ray showing vascular markings check cxr pt fluid overloaded will start on lasix 40 IV BID #UTI Fever, leukocytosis normal lactic acid No sign of sepsis .Respiratory panel is negative Continue ceftriaxone Patient has history of uterovaginal prolapse Full code Cardiac diet Family updated again. they are requesting transfer to [facility] [place]. Attestations Medical Necessity Statement*: requires icu stay, criticaly ill Coding Level of Care Code Critical Care >/= 30 minutes Critical care time (in minutes): 60 The high probability of a clinically significant, sudden or life threatening deterioration, as referenced in this documentation, required my full and direct attention, intervention and personal management. The critical care time shown is in addition to time spent performing any reported separately billable procedures and includes the following: [x] Data and vital sign review and interpretation [x] Patient assessment, examination and intervention [x] Medication orders and management [x] Patient/Family updates as able [x] Care Coordination and Documentation. Diagnoses NSTEMI (non-ST elevated myocardial infarction) I21.4 Urinary tract infection N30.00 Hematuria presence: without hematuria Urinary tract infection type: acute cystitis Elevated troponin R79.89 CKD (chronic kidney disease) N18.9 KYLE on CPAP G47.33 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 Emphysema type: unspecified Type 2 diabetes mellitus with diabetic polyneuropathy E11.42; Z79.4 Diabetes mellitus terminal supervisor insulin use: with long-term use Congestive heart failure I50.31 Heart failure chronicity: acute Heart failure type: diastolic CKD (chronic kidney disease) stage 3, GFR 30-59 ml/min N18.3 Osteoarthritis (arthritis due to wear and tear of joints) M19.041 Osteoarthritis location: hand Osteoarthritis type: primary Laterality: right Hyperlipidemia E78.5 GERD (gastroesophageal reflux disease) K21.9 PAD (peripheral artery disease) I73.9 Time Spent (min) 120
--- NOTE | 2023-08-22 16:32 | PM.PN ---
Subjective Subjective: This morning patient had an episode of unexplained bradycardia followed by asystole requiring 20-30 seconds of CPR. The rhythm return to normal without any active intervention. Patient did not receive adrenaline or atropine. When I saw the patient patient was having sinus tachycardia with very frequent PVCs and short runs of nonsustained VT. She already had a intravenous metoprolol and additionally required a bolus of 150 mg of amiodarone IV with reduction of PVCs and nonsustained VT rhythm. However, within the next 10 minutes she once again had an episode of bradycardia with heart rate into the 20s to 30s which was managed with single dose of atropine. During all this time patient remained awake and no further CPR was required. An ECG later on showed Q waves in the inferior leads consistent with her known chronic LIFESTYLE DIRECTOR of RCA. There are nonspecific ST changes otherwise. No acute ST elevation noted. Since then patient has been on low-dose of dopamine, 1 to 2 mcg. She has also been on a heparin for possible ACS. I reviewed her again at 4:30 PM, she is laying comfortably and in fact playing on her cell phone. She will was on 1 fernando of dopamine with a heart rate 76 beats per minute and blood pressure 116/70. Medications: Medication Review Details: Her current medication reviewed. Vitals/I&O/Wt Last Vital Signs Temp 98.1 F 08/22/23 13:00 Pulse 67 08/22/23 13:00 Resp 19 H 08/22/23 13:00 BP 123/58 08/22/23 13:00 Pulse Ox 100 08/22/23 13:00 O2 Del Method Nasal Cannula 08/22/23 13:00 O2 Flow Rate 2 08/22/23 13:00 08/22/23 08/22/23 08/22/23 06:59 14:59 22:59 Intake Total 400 / 1546.667 283.340 / 283.340 Balance 400 / 1546.667 283.340 / 283.340 Weight last 48 hrs Weight 204 lb 4 oz Weight 202 lb 2 oz Weight 180 lb Physical Exam Narrative: Patient laying comfortably. No respiratory distress. Vitals stable on low-dose of dopamine. There is no JVD. Lungs auscultation revealed mild rales at both lung bases bilaterally. Cardiovascular exam normal first and second heart sounds. No added sounds Lower extremities: Mild edema at the ankles Skin: Warm and dry Neuro: Intact Data 08/22/23 09:07 08/22/23 09:07 Micro: Microbiology 08/20/23 22:37 Urine Culture - Preliminary Urine,Clean Catch Gram Negative Rods 08/20/23 21:57 Blood Culture - Preliminary Blood NEGATIVE TO DATE 08/20/23 21:57 Blood Culture - Preliminary Blood NEGATIVE TO DATE A&P Assessment and plan (1) NSTEMI (non-ST elevated myocardial infarction): 58 yr sold female with known CAD, yesterday coronary angio revealed LIFESTYLE DIRECTOR RCA, moderate disease in mid LAD with patent stent in prox LAD, mild disease in lareg Lcx but severe diffuse disease in OM branches, likely culprit for ongoing ischemia. Currently patient is hemodynamically stable after being resuscitated earlier this morning from an episode of bradycardia and transient asystole requiring very short CPR. Currently no angina or any active heart failure symptoms, vitals are stable and being maintained on very low-dose of dopamine. I had a detailed discussion with her family explaining them the issue of arrhythmia, bradycardia as well as tachycardia with frequent PVCs. This may well be secondary to underlying coronary artery disease. I also explained them the stable but still critical condition of the patient and further management plan including possible repeat coronary angiogram and angioplasty if needed. I also mentioned the possibility of pacemaker considering her very erratic heart rhythm (tachybradycardia syndrome). Will continue the current regimen plan in ICU. (2) Elevated troponin: Attestations Medical Necessity Statement*: active cardiac issue requiring CPR/cardiac arrest Coding Level of Care Code Acute Code for [facility] Diagnoses NSTEMI (non-ST elevated myocardial infarction) I21.4 Elevated troponin R79.89
[2023-08-22 17:01] LABS: Glucose Point of Care 145 mg/dL (70-110)
[2023-08-22 17:53] LABS: Basophils # 0.1 10^3/uL (0.0-0.1); Basophils % 0.7 %; Eosinophils # 0.1 10^3/uL (0.0-0.8); Eosinophils % 1.2 %; Hematocrit 30.2 % (36-47); Lymphocytes # 1.6 10^3/uL (0.8-4.8); Lymphocytes % 16.1 %; Mean Corpuscular HGB Conc 30.5 g/dL (30-55); Mean Corpuscular Hemoglobin 27.5 pg (27-33); Mean Corpuscular Volume 90.4 fl (85-98); Mean Platelet Volume 10.9 fL (7.4-10.4); Monocytes # 1.1 10^3/uL (0.2-0.9); Monocytes % 11.3 %; Neutrophils # 6.92 10^3/uL (1.8-7.7); Neutrophils % 70.3 %; Nucleated Red Blood Cells % 0 %; Platelet Count 210 10^3/cmm (157-399); Red Blood Count 3.34 10^6/uL (3.85-5.65); Red Cell Distribution Width 14.5 % (12.1-15.1); White Blood Count 9.84 10^3/uL (3.29-11.43)
--- NOTE | 2023-08-22 18:06 | PC.NURSE ---
PTT resulted greater than 150. NUrse alerted Dr jacobson. Received orderds to pause heparin for 20 minutes, then restart at 11 units/kg/hr
[2023-08-22 18:15] LABS: Alanine Aminotransferase 85 U/L (0-33); Albumin Level 2.9 g/dL (3.5-5.2); Alkaline Phosphatase 92 U/L (35-105); Aspartate Amino Transferase 83 U/L (0-32); Blood Urea Nitrogen 41 mg/dL (6-20); Calcium 8.4 mg/dL (8.5-10.5); Carbon Dioxide 22 mmol/L (22-29); Chloride 100 mmol/L (98-107); Globulin 3.7 g/dL (1.3-4.6); Glomerular Filtration Rate 25.6 mL/min (90-130); Glucose 161 mg/dL (65-115); Magnesium 1.8 mg/dL (1.7-2.3); Osmolality Calculated 288 mOsm/kg (285-295); Sodium 132 mmol/L (136-145); Total Bilirubin 0.5 mg/dL (0.15-1.2); Total Protein 6.6 g/dL (6.6-8.7)
[2023-08-22 20:35] LABS: Glucose Point of Care 197 mg/dL (70-110)
[2023-08-22] MEDS: insulin glargine 100 units/1 mL 30 UNIT SUBCUT (20:58)
--- NOTE | 2023-08-22 21:02 | PM.TDS ---
Transfer Summary Providers Date of Admission: 08/21/23 01:08 Date of Discharge/Transfer: 08/22/23 Attending Provider at Admission: Fabiana Meyer MD Attending Provider at Transfer: Melia Last MD Primary Care Provider: Cameron Frost MD Transfer Plans: Anticipated date of transfer: 08/22/23. Receiving Facility: [facility]. Receiving Provider: Corry Kang. Diagnoses at Discharge Discharge Diagnosis (1) NSTEMI (non-ST elevated myocardial infarction): Status: Acute (2) Urinary tract infection: Status: Acute Qualifiers: Hematuria presence: without hematuria Urinary tract infection type: acute cystitis Qualified Code(s): N30.00 - Acute cystitis without hematuria (3) Elevated troponin: Status: Acute (4) CKD (chronic kidney disease): Status: Chronic (5) KYLE on CPAP: Status: Acute (6) COPD (chronic obstructive pulmonary disease) with emphysema: Status: Acute Qualifiers: Emphysema type: unspecified Qualified Code(s): J43.9 - Emphysema, unspecified (7) Type 2 diabetes mellitus with diabetic polyneuropathy: Status: Acute Qualifiers: Diabetes mellitus shelter insulin use: with shelter use Qualified Code(s): E11.42 - Type 2 diabetes mellitus with diabetic polyneuropathy; Z79.4 - penitentiary (current) use of insulin (8) Congestive heart failure: Status: Acute Qualifiers: Heart failure chronicity: acute Heart failure type: diastolic Qualified Code(s): I50.31 - Acute diastolic (congestive) heart failure (9) CKD (chronic kidney disease) stage 3, GFR 30-59 ml/min: Status: Acute (10) Osteoarthritis (arthritis due to wear and tear of joints): Status: Acute Qualifiers: Osteoarthritis location: hand Osteoarthritis type: primary Laterality: right Qualified Code(s): M19.041 - Primary osteoarthritis, right hand (11) Hyperlipidemia: Status: Acute (12) GERD (gastroesophageal reflux disease): Status: Acute (13) PAD (peripheral artery disease): Status: Acute (14) Tachy-arsen syndrome: Status: Acute (15) Encounter for monitoring of dopamine agonist therapy: Status: Acute (16) ATN (acute tubular necrosis): Status: Acute Reason for Visit Reason for Visit Legs\Hip\Back Pain Brief History: As per Dr. Meyer Radha Henry is a 58 year old female with established history of coronary 2 stents 2013 and 2015, non-smoker, patient developed pneumonia and now suffering from sinusitis, presented to the hospital for nausea vomiting and weakness.? 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, she does not use oxygen, Last 24 hours her symptoms worsened with nausea, vomiting, chills, she is also endorsing burning with micturition, endorsing fever, she still feeling congested, her sinusitis symptoms have not improved, in the ED she was diagnosed with non-STEMI and UTI I have started her on ACS protocol currently chest pain-free however stating that she is hurting around her collarbone and this was also the scenario when she had stents placed 2016 Resting comfortably at the time of my evaluation, requested D-dimer Creatinine 1.5 Mild hyponatremia Leukocytosis 14.4 with low-grade fever lactic acid is normal BNP is high Hospital Course Hospital Course Patient underwent cardiac cath on 08/21 with following findings: Conclusions ? 1. Diagnostic coronary angiogram Left main: Normal Left anterior descending artery: Large vessel.? Mild ISR in the previously placed stent in the proximal mid segment. There is a 50 to 60% focal stenosis in the mid segment distal to the previously placed stent. The distal vessel has moderate diffuse disease around the apex. Left circumflex artery: codominant vessel. Mild 2 to 30% diffuse disease in the mid vessel. OM 2 medium size vessel with a severe diffuse disease from ostium to proximal and mid segments. Right coronary artery: Codominant vessel. 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 Very limited collaterals from left system to the distal RCA.? Recommendations: Medical management of CAD and risk factors. ? . Diagnostic RX Recommendation: ? ? medical therapy and/or counseling This morning patient had an episode of unexplained bradycardia followed by asystole requiring 20-30 seconds of CPR.? The rhythm return to normal without any active intervention.? Patient did not receive adrenaline or atropine. When I saw the patient patient was having sinus tachycardia with very frequent PVCs and short runs of nonsustained VT.? She already had a intravenous metoprolol and additionally required a bolus of 150 mg of amiodarone IV with reduction of PVCs and nonsustained VT rhythm. However, within the next 10 minutes she once again had an episode of bradycardia with heart rate into the 20s to 30s which was managed with single dose of atropine.? During all this time patient remained awake and no further CPR was required. 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 There are nonspecific ST changes otherwise.? No acute ST elevation noted. Since then patient has been on low-dose of dopamine, 1 to 2 mcg.? She has also been on a heparin for possible ACS. I reviewed her again at 4:30 PM, she is laying comfortably and in fact playing on her cell phone.? She will was on 1 fernando of dopamine with a heart rate 76 beats per minute and blood pressure 116/70. Urine output very minimal since morning episode. Cr gone up to 2.0 at this time. She has received IV fluids today as well. Kramer placed for accurate I/O. Patients family updated extensively throughout the day. They are requesting for transfer to [facility]. GIven patients current status, she may require a permanent pacemaker which our hospital does not have the capability to do at this time. Discussed case with senior sql developer Dr. Kang at [facility] who accepted the patient for transfer. Patient will be transferred in stable condition . Physical Exam Narrative: Patient laying comfortably. No respiratory distress. Vitals stable on low-dose of dopamine. There is no JVD. Lungs auscultation revealed mild rales at both lung bases bilaterally. Cardiovascular exam normal first and second heart sounds. No added sounds Lower extremities: Mild edema at the ankles Skin: Warm and dry Neuro: Intact Urinary Catheter Management: Kramer: Cath Placed During This Visit: yes Urinary Catheter Date of Insertion: 08/22/23 Urinary Catheter Time of Insertion: 19:30 TS Data Studies Completed and Pending Pending at discharge Category Date Time Status XR chest 1V portable [id number] Routine Exams 08/23/23 08:00 Ordered Blood Culture Stat Lab 08/20/23 21:57 Results Complete Blood Count w/Auto AM LABS Lab 08/23/23 04:00 Ordered Comprehensive Metabolic Panel AM LABS Lab 08/23/23 04:00 Ordered Magnesium AM LABS Lab 08/23/23 04:00 Ordered PTT [Partial Thromboplastin Time] Timed Lab 08/23/23 00:01 Ordered Platelet Count Q2D Lab 08/24/23 04:00 Ordered Platelet Count Q2D Lab 08/26/23 04:00 Ordered Urine Culture Stat Lab 08/20/23 22:37 Results Completed Studies During Hospitalization Category Date Time Status CTA chest CT abdomen pelvis [CT angio chest w abd pel w Cat Scan 08/20/23 22:32 Completed con] Stat 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 echo complete* [id number] Routine Ultrasound 08/21/23 02:29 Completed Laboratory Last Values WBC 9.84 10^3/uL (3.29-11.43) 08/22/23 17:42 RBC 3.34 10^6/uL (3.85-5.65) L 08/22/23 17:42 Hgb 9.20 g/dL (11.27-16.99) L 08/22/23 17:42 Hct 30.2 % (36-47) L 08/22/23 17:42 MCV 90.4 fl (85-98) 08/22/23 17:42 MCH 27.5 pg (27-33) 08/22/23 17:42 MCHC 30.5 g/dL (30-55) 08/22/23 17:42 RDW 14.5 % (12.1-15.1) 08/22/23 17:42 Plt Count 210 10^3/cmm (157-399) 08/22/23 17:42 MPV 10.9 fL (7.4-10.4) H 08/22/23 17:42 Neut % (Auto) 70.3 % 08/22/23 17:42 Lymph % (Auto) 16.1 % 08/22/23 17:42 Patrick % (Auto) 11.3 % 08/22/23 17:42 Eos % (Auto) 1.2 % 08/22/23 17:42 Baso % (Auto) 0.7 % 08/22/23 17:42 Neut # (Auto) 6.92 10^3/uL (1.8-7.7) 08/22/23 17:42 Lymph # (Auto) 1.6 10^3/uL (0.8-4.8) 08/22/23 17:42 Patrick # (Auto) 1.1 10^3/uL (0.2-0.9) H 08/22/23 17:42 Eos # (Auto) 0.1 10^3/uL (0.0-0.8) 08/22/23 17:42 Baso # (Auto) 0.1 10^3/uL (0.0-0.1) 08/22/23 17:42 Nucleated RBC % (auto) 0 % 08/22/23 17:42 Nucleated RBCs # 0.0 /100WBC 08/22/23 17:42 APTT 158.0 SECONDS (23.9-36.7) H* 08/22/23 16:22 D-Dimer 2.42 ug/mLFEU (0-0.59) H 08/22/23 09:07 Specimen Type Arterial 08/22/23 09:01 Sample Site Radial, left 08/22/23 09:01 ABG pH 7.36 (7.35-7.45) 08/22/23 09:01 ABG pCO2 37.0 mmHg (35-45) 08/22/23 09:01 ABG pO2 76.5 mmHg (80.0-100.0) L 08/22/23 09:01 ABG HCO3 20.9 mmol/L (22-26) L 08/22/23 09:01 ABG O2 Saturation 95.8 08/22/23 09:01 ABG Base Excess -4.1 mmol/L (-2.0-2.0) L 08/22/23 09:01 Darren Test Pos 08/22/23 09:01 A-a O2 Gradient 3.6 mmHg (5-10) L 08/22/23 09:01 Hematocrit 32.1 % (37-47) L 08/22/23 09:01 Hgb O2 Saturation 94.0 % (95-100) L 08/22/23 09:01 Carboxyhemoglobin 1.1 %THgb (0.4-20.1) 08/22/23 09:01 Methemoglobin 0.8 % (0.4-1.5) 08/22/23 09:01 Total Hemoglobin 10.5 g/dL (12-16) L 08/22/23 09:01 Sodium 132.0 mmol/L (131-143) 08/22/23 09:01 Potassium 5.1 mmol/L (3.5-5.0) H 08/22/23 09:01 Glucose 276.0 mg/dL (70-115) H 08/22/23 09:01 Ionized Calcium 1.2 mmol/L (1.1-1.4) 08/22/23 09:01 O2 Delivery Device Nc 08/22/23 09:01 O2 Liters/Min 2.0 % 08/22/23 09:01 Ball Sorter ID Noemy 08/22/23 09:01 Sodium 132 mmol/L (136-145) L 08/22/23 17:42 Potassium 5.0 mmol/L (3.5-5.1) 08/22/23 17:42 Chloride 100 mmol/L (98-107) 08/22/23 17:42 Carbon Dioxide 22 mmol/L (22-29) 08/22/23 17:42 Anion Gap 15.0 (5-19) 08/22/23 17:42 BUN 41 mg/dL (6-20) H 08/22/23 17:42 Creatinine 2.0 mg/dL (0.5-0.9) H 08/22/23 17:42 GFR Calculation 25.6 mL/min (90-130) L 08/22/23 17:42 Glucose 161 mg/dL (65-115) H 08/22/23 17:42 POC Glucose 197 mg/dL (70-110) H 08/22/23 20:30 Estimat Average Glucose 194 08/21/23 04:00 Hemoglobin A1c 8.4 % (4.0-6.0) H 08/21/23 04:00 Calculated Osmolality 288 mOsm/kg (285-295) 08/22/23 17:42 Lactic Acid 1.6 mmol/L (0.5-2.2) 08/20/23 21:34 Lactate 2.4 mmol/L (0.5-2.2) H 08/22/23 09:07 Calcium 8.4 mg/dL (8.5-10.5) L 08/22/23 17:42 Phosphorus 3.6 mg/dL (2.5-4.5) 08/22/23 09:07 Magnesium 1.8 mg/dL (1.7-2.3) 08/22/23 17:42 Total Bilirubin 0.5 mg/dL (0.15-1.2) 08/22/23 17:42 AST 83 U/L (0-32) H 08/22/23 17:42 ALT 85 U/L (0-33) H 08/22/23 17:42 Alkaline Phosphatase 92 U/L (35-105) 08/22/23 17:42 Troponin T Baseline 280 ng/L (0-10) H* 08/22/23 09:07 Troponin T 120 Minute 287.0 ng/L (0-10) H 08/22/23 11:53 Delta Troponin T 7.0 ABS# (0-10) 08/22/23 11:53 Troponin T Hi Sens 6Hr 329.6 ng/L (0-10) H 08/22/23 15:07 Troponin T Hi Sens 6Hr Delta 49.6 ng/L (0-12) H* 08/22/23 15:07 C-Reactive Protein 51.4 mg/L (0.0-4.9) H 08/21/23 04:00 C-Reactive Protein Cancelled 08/21/23 04:00 NT-Pro-B Natriuret Pep 19906 pg/mL (0-125) H 08/22/23 09:07 Total Protein 6.6 g/dL (6.6-8.7) 08/22/23 17:42 Albumin 2.9 g/dL (3.5-5.2) L 08/22/23 17:42 Globulin 3.7 g/dL (1.3-4.6) 08/22/23 17:42 Lipase 14 U/L (13-60) 08/20/23 21:34 Procalcitonin 3.12 ng/mL (0-0.5) H 08/21/23 04:00 TSH 3.62 uIU/mL (0.27-4.20) 08/22/23 09:07 Urine Color Yellow (Yellow) 08/20/23 22:37 Urine Appearance Cloudy (CLEAR) A 08/20/23 22:37 Urine pH 6.5 (5-7) 08/20/23 22:37 Ur Specific [place] 1.030 (1.005-1.030) 08/20/23 22:37 Urine Protein 3+ (Negative) H 08/20/23 22:37 Urine Glucose (UA) Norm (Normal) 08/20/23 22:37 Urine Ketones Negative (Negative) 08/20/23 22:37 Urine Blood 2+ (Negative) H 08/20/23 22:37 Urine Nitrate Positive (Negative) H 08/20/23 22:37 Urine Bilirubin Neg (Negative) 08/20/23 22:37 Urine Urobilinogen Norm mg/dL (Negative) 08/20/23 22:37 Ur Leukocyte Esterase Negative (Negative) 08/20/23 22:37 Urine RBC 0-4 /hpf (0-2) H 08/20/23 22:37 Urine WBC >100 /hpf (0-5) H 08/20/23 22:37 Ur Squamous Epith Cells 0-4 /hpf (0-5) H 08/20/23 22:37 Amorphous Sediment Not Reportable 08/20/23 22:37 Urine Bacteria 4+ /hpf (NONE) H 08/20/23 22:37 Nasal Influ A H1 2009 PCR Not detected (NOT DETECT) 08/20/23 23:22 Adenovirus (PCR) Not detected (NOT DETECT) 08/20/23 23:22 C. pneumoniae DNA (PCR) Not detected (NOT DETECT) 08/20/23 23:22 Coronavirus 229E (PCR) Not detected (NOT DETECT) 08/20/23 23:22 Human Metapneumovir PCR Not detected (NOT DETECT) 08/20/23 23:22 Influenza A (H1) PCR Not detected (NOT DETECT) 08/20/23 23:22 Influenza A (H3) PCR Not detected (NOT DETECT) 08/20/23 23:22 Influenza Type A (PCR) Not detected (NOT DETECT) 08/20/23 23:22 Influenza Type B (PCR) Not detected (NOT DETECT) 08/20/23 23:22 M. pneumoniae (PCR) Not detected (NOT DETECT) 08/20/23 23:22 Parainfluenza 1 (PCR) Not detected (NOT DETECT) 08/20/23 23:22 Parainfluenza 2 (PCR) Not detected (NOT DETECT) 08/20/23 23:22 Parainfluenza 3 (PCR) Not detected (NOT DETECT) 08/20/23 23:22 Parainfluenza 4 (PCR) Not detected (NOT DETECT) 08/20/23 23:22 RSV Type A (PCR) Not detected (NOT DETECT) 08/20/23 23:22 RSV Type B (PCR) Not detected (NOT DETECT) 08/20/23 23:22 Entero/Rhino (PCR) Not detected (NOT DETECT) 08/20/23 23:22 SARS-CoV-2 (PCR) Not detected (NOT DETECT) 08/20/23 23:22 Radiology Impressions Chest/Abdomen/Pelvis CT 08/20/23 22:32 IMPRESSION: 1. No pulmonary embolus. 2. No focal consolidation or pleural effusion. 3. Diffuse increased septal markings throughout both lungs with a lower lobe predominance. This is similar to the prior chest CT dated 11/08/2021 and can be seen in the setting of chronic interstitial lung disease. IMPRESSION: 1. There is a locule of air in the bladder. This is nonspecific but can be seen the setting of cystitis. Correlate with UA. 2. No bowel obstruction or inflammatory process associated bowel. 3. No free air or fluid in the abdomen or pelvis. Recent Clincial Data Last Vital Signs Temp 98.2 F 08/22/23 18:15 Pulse 67 08/22/23 19:00 Resp 25 H 08/22/23 19:00 BP 133/64 08/22/23 19:00 Pulse Ox 93 08/22/23 19:00 O2 Del Method Nasal Cannula 08/22/23 18:15 O2 Flow Rate 2 08/22/23 18:15 Vital Signs Temp Pulse Resp BP Pulse Ox O2 Del Method O2 Flow Rate 08/22/23 19:00 67 25 H 133/64 93 08/22/23 18:45 67 33 H 123/57 98 08/22/23 18:30 66 26 H 144/62 08/22/23 18:15 98.2 F 67 22 H 144/62 98 Nasal Cannula 2 08/22/23 18:00 66 18 133/68 97 08/22/23 17:45 66 22 H 123/93 97 08/22/23 17:30 66 17 138/70 99 08/22/23 17:15 66 25 H 151/76 08/22/23 17:00 65 17 151/76 97 08/22/23 16:45 64 20 H 165/67 94 08/22/23 16:30 68 21 H 124/57 79 L 08/22/23 16:15 66 28 H 124/57 92 08/22/23 16:00 65 20 H 145/73 96 08/22/23 15:45 63 19 H 118/93 96 08/22/23 15:30 66 20 H 119/67 94 08/22/23 15:15 85 21 H 115/63 95 08/22/23 15:00 65 34 H 108/48 96 08/22/23 14:45 66 23 H 107/54 96 08/22/23 14:30 68 20 H 97/52 96 08/22/23 14:15 69 24 H 110/57 96 08/22/23 14:00 68 26 H 109/48 94 08/22/23 13:45 72 26 H 94/49 92 08/22/23 13:30 65 27 H 105/57 92 08/22/23 13:15 65 24 H 119/60 99 08/22/23 14:00 68 08/22/23 13:00 98.1 F 67 19 H 123/58 100 Nasal Cannula 2 08/22/23 12:45 68 35 H 123/58 100 08/22/23 12:30 70 27 H 127/65 08/22/23 12:15 115 H 32 H 95 08/22/23 12:00 146 H 34 H 120/56 97 08/22/23 11:45 90 120/56 94 08/22/23 11:30 88 120/56 95 08/22/23 11:15 93 120/56 91 08/22/23 11:00 93 32 H 120/56 89 L 08/22/23 10:45 96 35 H 120/56 91 08/22/23 10:30 120/56 94 08/22/23 10:15 72 28 H 100 08/22/23 10:00 70 27 H 133/69 100 08/22/23 09:45 110 H 37 H 133/69 93 08/22/23 09:30 49 L 16 104/56 94 08/22/23 09:15 138 H 23 H 106/59 97 Intake & Output/Weight 08/20/23 08/21/23 08/22/23 08/23/23 06:59 06:59 06:59 06:59 Intake Total 850 / 850 1546.667 / 1546.667 775.296 / 775.296 Balance 850 / 850 1546.667 / 1546.667 775.296 / 775.296 Weight 91.682 kg 92.646 kg Vitals Last Vital Signs Temp 98.2 F 08/22/23 18:15 Pulse 67 08/22/23 19:00 Resp 25 H 08/22/23 19:00 BP 133/64 08/22/23 19:00 Pulse Ox 93 08/22/23 19:00 O2 Del Method Nasal Cannula 08/22/23 18:15 O2 Flow Rate 2 08/22/23 18:15 TS Medications Medications Acetaminophen (Acetaminophen 500 Mg Tablet) 500 mg PO Q4H PRN PRN Reason: fever Albuterol/Ipratropium (Ipratropium-Albuterol 3 Ml Neb) 3 ml INHALATION Q6H PRN PRN Reason: SHORTNESS OF BREATH Aspirin (Aspirin 81 Mg Ec Tablet) 81 mg PO DAILY [facility] Last Admin: 08/22/23 08:41 Dose: 81 mg Atorvastatin Calcium (Atorvastatin 40 Mg Tablet) 80 mg PO DAILY [facility] Last Admin: 08/22/23 08:42 Dose: 80 mg Clopidogrel Bisulfate (Clopidogrel 75 Mg Tablet) 75 mg PO DAILY [facility] Last Admin: 08/22/23 08:42 Dose: 75 mg Dextrose (Dextrose 50% Syringe 50 Ml) 25 ml IVP ONCE PRN; Protocol PRN Reason: hypoglycemia protocol Dextrose (Dextrose 50% Syringe 50 Ml) 50 ml IVP PRN PRN; Protocol PRN Reason: hypoglycemia protocol Heparin Sodium (Porcine) (Heparin 5,000 Unit/Ml Inj 1 Ml) 0 unit IV PRN PRN; Protocol PRN Reason: Heparin weight-base protocol Hydralazine HCl (Hydralazine 20 Mg/Ml Inj 1 Ml) 5 mg IVP Q6H PRN PRN Reason: HYPERTENSION Dextrose (D5w) 500 mls @ 0 mls/hr IV ONCE PRN; Protocol PRN Reason: Adult Acute Hypoglycemia Prot Ceftriaxone Sodium 1,000 mg/ (Sodium Chloride) 50 mls @ 100 mls/hr IV DAILY [facility]; Protocol Last Infusion: 08/22/23 12:53 Dose: Infused Heparin Sodium/Sodium Chloride (Heparin Drip) 25,000 unit in 500 mls @ 0 mls/hr IV .Q0M [facility]; Protocol Last Titration: 08/22/23 18:06 Dose: 11 unit/kg/hr, 20.38 mls/hr Dopamine HCl/Dextrose (Intropin Drip) 400 mg in 250 mls @ 17.371 mls/hr IV CONT [facility]; Protocol Last Titration: 08/22/23 14:00 Dose: 1 mcg/kg/min, 3.47 mls/hr Insulin Glargine (Insulin Glargine 100 Units/1 Ml) 30 unit SUBCUT BEDTIME [facility] Last Admin: 08/22/23 20:58 Dose: 30 unit Insulin Human Lispro (Insulin Lispro 100 Unit/1 Ml) 0 unit SUBCUT TIDWM [facility]; Protocol Last Admin: 08/22/23 18:00 Dose: 4 unit Morphine Sulfate (Morphine Ir 15 Mg Tablet) 15 mg PO Q6H PRN PRN Reason: MODERATE PAIN Ondansetron HCl (Ondansetron 2 Mg/Ml Sdv 2 Ml) 4 mg IVP Q6H PRN PRN Reason: NAUSEA AND VOMITING Last Admin: 08/21/23 22:21 Dose: 4 mg Ranolazine (Ranolazine (12hr) 500 Mg Tablet) 500 mg PO BID [facility] Last Admin: 08/22/23 18:00 Dose: 500 mg Discontinued Medications Acetaminophen (Acetaminophen 500 Mg Tablet) 1,000 mg PO ONCE ONE Stop: 08/20/23 21:54 Last Admin: 08/20/23 23:15 Dose: 1,000 mg Albuterol/Ipratropium (Ipratropium-Albuterol 3 Ml Neb) 3 ml INHALATION ONCE ONE Stop: 08/20/23 21:58 Last Admin: 08/20/23 23:40 Dose: 3 ml Aspirin (Aspirin 81 Mg Chew Tablet) 324 mg PO NOW ONE Stop: 08/21/23 00:23 Last Admin: 08/21/23 00:31 Dose: 324 mg Aspirin (Aspirin 325 Mg Ec Tablet) 325 mg PO ONCE ONE Stop: 08/21/23 02:31 Last Admin: 08/21/23 03:22 Dose: Not Given Atropine Sulfate (Atropine 0.1 Mg/Ml Syr 10 Ml) 1 mg IVP ONCE ONE Stop: 08/22/23 11:06 Last Admin: 08/22/23 11:29 Dose: Not Given Clopidogrel Bisulfate (Clopidogrel 300 Mg Tablet) 300 mg PO ONCE ONE Stop: 08/21/23 03:16 Last Admin: 08/21/23 03:17 Dose: 300 mg Enoxaparin Sodium (Enoxaparin 100 Mg/Ml Syringe) 80 mg 1 mg/kg (80 mg) SUBCUT Q12H [facility] Last Admin: 08/21/23 03:17 Dose: 80 mg Enoxaparin Sodium (Enoxaparin 100 Mg/Ml Syringe) 90 mg 1 mg/kg (80 mg) SUBCUT Q12H [facility] Fentanyl (Fentanyl 50 Mcg/Ml Inj 2ml) Confirm Administered Dose 100 mcg .ROUTE .STK-MED ONE Stop: 08/21/23 10:10 Heparin Sodium (Porcine) (Heparin 5,000 Unit/Ml Inj 1 Ml) 5,000 unit IVP ONCE ONE Stop: 08/22/23 09:13 Last Admin: 08/22/23 10:15 Dose: 5,000 unit Ceftriaxone Sodium 2,000 mg/ (Sodium Chloride) 50 mls @ 100 mls/hr IV ONCE ONE; Protocol Stop: 08/20/23 23:24 Last Infusion: 08/21/23 01:41 Dose: Infused Sodium Chloride (Sodium Chloride 0.9%) 500 mls @ 500 mls/hr IV ONCE ONE Stop: 08/20/23 23:55 Last Infusion: 08/21/23 01:41 Dose: Infused Sodium Chloride (Sodium Chloride 0.9%) 1,000 mls @ 75 mls/hr IV .[id number] [facility] Last Admin: 08/21/23 03:22 Dose: Not Given Sodium Chloride (Sodium Chloride 0.9%) 1,000 mls @ 150 mls/hr IV .Q6H40M [facility] Last Infusion: 08/22/23 10:21 Dose: Infused Lidocaine HCl (Xylocaine) Confirm Administered Dose 1 mls @ as directed .ROUTE .STK-MED ONE Stop: 08/21/23 10:12 Etomidate (Amidate) Confirm Administered Dose 10 mls @ as directed .ROUTE .STK-MED ONE Stop: 08/22/23 09:02 Last Admin: 08/22/23 10:21 Dose: Not Given Sodium Chloride (Sodium Chloride 0.9% (100 Ml)) Confirm Administered Dose 100 mls @ as directed .ROUTE .STK-MED ONE Stop: 08/22/23 09:20 Last Admin: 08/22/23 10:23 Dose: Not Given Amiodarone HCl/Dextrose (Nexterone) 360 mg in 200 mls @ 0 mls/hr IV .Q0M [facility]; Protocol Iohexol (Iohexol 350 Mg/Ml 500 Ml Btl (Per Ml)) 0 ml IV ONCE ONE Stop: 08/20/23 22:54 Last Admin: 08/20/23 22:53 Dose: 100 ml Metoprolol Tartrate (Metoprolol Tartrate 1 Mg/1 Ml Sdv 5 Ml) 5 mg IVP ONCE ONE Stop: 08/22/23 08:24 Last Admin: 08/22/23 08:41 Dose: 5 mg Midazolam HCl (Midazolam 1 Mg/Ml Inj 2 Ml) Confirm Administered Dose 2 mg .ROUTE .STK-MED ONE Stop: 08/21/23 10:10 Midazolam HCl (Midazolam 1 Mg/Ml Inj 2 Ml) Confirm Administered Dose 2 mg .ROUTE .STK-MED ONE Stop: 08/21/23 11:10 Nitroglycerin (Nitroglycerin 5 Mg/Ml Sdv 10 Ml) Confirm Administered Dose 50 mg .ROUTE .STK-MED ONE Stop: 08/21/23 10:10 Rocuronium [place] (Rocuronium 10 Mg/Ml Inj 5ml) Confirm Administered Dose 50 mg .ROUTE .STK-MED ONE Stop: 08/22/23 09:03 Last Admin: 08/22/23 10:22 Dose: Not Given Allergies doxycycline Allergy (Severe, Verified 08/21/23 08:08) worsening symptoms, breathing issues oxybutynin Allergy (Verified 08/21/23 08:19) dry mouth metformin Adverse Reaction (Mild, Verified 08/21/23 08:08) ADR-Diarrhea Home Medications cpap mask and tubing #1 ea 04/22/20 [Rx Confirmed 08/21/23] glucometer #1 ea 06/09/20 [Rx Confirmed 08/21/23] Diabetic Shoes with 3 pairs of inserts #1 ea 07/05/22 [Rx Confirmed 08/21/23] 3 inserts for diabetic shoes #1 ea 07/20/22 [Rx Confirmed 08/21/23] Custom Molded Accommodative Orthotics #1 ea 07/20/22 [Rx Confirmed 08/21/23] Diabetic Shoes #1 ea 07/20/22 [Rx Confirmed 08/21/23] pen needle, diabetic 31 gauge x 3/16 (BD Ultra-Fine Mini Pen Needle) #100 ea 10/17/22 [Rx Confirmed 08/21/23] albuterol sulfate 90 mcg/actuation aerosol inhaler (ProAir HFA) 1 inh inhalation QID PRN Shortness Of Breath #6.7 grams 11/10/22 [Rx Confirmed 08/21/23] blood sugar diagnostic (Accu-Chek Guide test strips) #100 ea 06/20/23 [Rx Confirmed 08/21/23] blood-glucose meter (Accu-Chek Guide Glucose Meter) #1 ea 06/20/23 [Rx Confirmed 08/21/23] lancets (Accu-Chek Softclix Lancets) #100 ea 06/20/23 [Rx Confirmed 08/21/23] losartan 50 mg tablet 25 mg PO DAILY 06/22/23 [History Confirmed 08/21/23] blood glucose control high and low solution (Accu-Chek Guide L1-L2 Control Solution) #1 ea 06/29/23 [Rx Confirmed 08/21/23] sucralfate 1 gram tablet (Carafate) 1 g PO Q6H PRN dyspepsia 12 weeks #336 tabs 07/31/23 [Rx Confirmed 08/21/23] aspirin 81 mg tablet,delayed release 81 mg PO BEDTIME 08/21/23 [History Confirmed 08/21/23] atorvastatin 10 mg tablet 10 mg PO BEDTIME 08/21/23 [History Confirmed 08/21/23] calcium polycarbophil 625 mg tablet (FiberCon) 625 mg PO BID PRN dietary fiber 08/21/23 [History Confirmed 08/21/23] cetirizine 10 mg tablet 10 mg PO BEDTIME allergy symptoms 08/21/23 [History Confirmed 08/21/23] clopidogrel 75 mg tablet 75 mg PO BEDTIME 08/21/23 [History Confirmed 08/21/23] hydrochlorothiazide 25 mg tablet 25 mg PO QAM 08/21/23 [History Confirmed 08/21/23] insulin detemir U-100 100 unit/mL (3 mL) subcutaneous pen (Levemir FlexPen) See Rx Instructions .Route .COMPLEX #15 mL 08/21/23 [Rx] pantoprazole 20 mg tablet,delayed release 20 mg PO BEDTIME 08/21/23 [History Confirmed 08/21/23] sitagliptin phosphate 100 mg tablet (Januvia) 100 mg PO QAM 08/21/23 [History Confirmed 08/21/23] Discharge Plan Discharge Patient Disposition: Xfer Other Condition: Stable Prescriptions: No Action (DME) Diabetic Shoes with 3 pairs of inserts See Rx Instructions .ROUTE .MEDSUPPLY Qty: 1 0RF Rx Instructions: As directed by [employer] losartan 50 mg tablet 25 mg PO DAILY (DME) cpap mask and tubing See Rx Instructions .Route .MEDSUPPLY Qty: 1 0RF Rx Instructions: FOR HOME, sutosubstitue formulary equivalent (DME) glucometer See Rx Instructions .Route .MEDSUPPLY Qty: 1 0RF Rx Instructions: glucometer kit, check bs three times daily 100 strips 100 lancets (DME) Diabetic shoes with 3 inserts See Rx Instructions .Route .MEDSUPPLY Qty: 1 0RF Rx Instructions: As directed HOME (DME) Diabetic Shoes See Rx Instructions .Route .MEDSUPPLY Qty: 1 0RF Rx Instructions: As directed HOME (DME) Custom Molded Accommodative Orthotics See Rx Instructions .Route .MEDSUPPLY Qty: 1 0RF Rx Instructions: As directed [employer] [place] (DME) pen needle, diabetic [BD Ultra-Fine Mini Pen Needle] 31 gauge x 3/16 needle See Rx Instructions .Route Qty: 100 12RF Rx Instructions: As directed albuterol sulfate [ProAir HFA] 90 mcg/actuation HFA aerosol inhaler 1 inh INHALATION QID PRN (Reason: Shortness Of Breath) Qty: 6.7 0RF (DME) blood-glucose meter [Accu-Chek Guide Glucose Meter] Misc See Rx Instructions .Route Qty: 1 0RF Rx Instructions: As directed (DME) Accu-Chek Guide test strips Strip See Rx Instructions .Route Qty: 100 11RF Rx Instructions: As directed (DME) lancets [Accu-Chek Softclix Lancets] Misc See Rx Instructions .Route Qty: 100 11RF Rx Instructions: As directed (DME) Accu-Chek Guide L1-L2 Ctrl Krista Solution See Rx Instructions .Route Qty: 1 0RF Rx Instructions: As directed Levemir FlexPen 100 unit/mL (3 mL) insulin pen See Rx Instructions .ROUTE .COMPLEX Qty: 15 5RF Dose Instruction: INJECT 50 UNITS SUBCUTANEOUSLY EVERY DAY Rx Instructions: INJECT 50 UNITS SUBCUTANEOUSLY EVERY DAY cetirizine 10 mg tablet 10 mg PO BEDTIME atorvastatin 10 mg tablet 10 mg PO BEDTIME clopidogrel 75 mg tablet 75 mg PO BEDTIME aspirin 81 mg tablet,delayed release (DR/EC) 81 mg PO BEDTIME FiberCon 625 mg tablet 625 mg PO BID PRN (Reason: dietary fiber) hydrochlorothiazide 25 mg tablet 25 mg PO QAM Januvia 100 mg tablet 100 mg PO QAM Rx Instructions: 340B meds pantoprazole 20 mg tablet,delayed release (DR/EC) 20 mg PO BEDTIME sucralfate [Carafate] 1 gram tablet 1 g PO Q6H PRN (Reason: dyspepsia) 84 Days Qty: 336 0RF Referrals: Cameron Frost MD [Primary Care Provider] - Discharge Diet: Usual diet Discharge Activity: Increase activity as tolerated Patient Instructions: Urinary Tract Infection in Women (ED) Transfer Attestations Time Spent in Transfer Care: greater than 30 min Quality Metrics Clinical Quality Measures [ No reported AMI, CVA or VTE this stay] Coding Level of Care Code Acute Code for Chg Fwd Diagnoses NSTEMI (non-ST elevated myocardial infarction) I21.4 Urinary tract infection N30.00 Hematuria presence: without hematuria Urinary tract infection type: acute cystitis Elevated troponin R79.89 CKD (chronic kidney disease) N18.9 KYLE on CPAP G47.33 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 Emphysema type: unspecified Type 2 diabetes mellitus with diabetic polyneuropathy E11.42; Z79.4 Diabetes mellitus shelter insulin use: with pantograph operator use Congestive heart failure I50.31 Heart failure chronicity: acute Heart failure type: diastolic CKD (chronic kidney disease) stage 3, GFR 30-59 ml/min N18.3 Osteoarthritis (arthritis due to wear and tear of joints) M19.041 Osteoarthritis location: hand Osteoarthritis type: primary Laterality: right Hyperlipidemia E78.5 GERD (gastroesophageal reflux disease) K21.9 PAD (peripheral artery disease) I73.9 Tachy-arsen 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
--- NOTE | 2023-08-22 21:40 | PC.NURSE ---
Received room assignmeny from [facility] transfer [place] for room 3317. Report given to Marva Santos at [facility] ([phone]) unit [address].
== END 2023-08-22 23:05 | disposition other institution (70) ==
LOC: ER 08-21 01:05 → MEDSURG 08-21 01:08 → CSU 08-21 13:42 → ICU 08-22 09:34
PROVIDERS: Family Medicine; Internal Medicine Cardiovascular Disease; Admitting Provider Internal Medicine; Emergency Provider Nurse Practitioner Family; PCP Family Medicine Adult Medicine; Visit Provider Internal Medicine
DX: I21.4 Non-ST elevation (NSTEMI) myocardial infarction (principal); N30.00 Acute cystitis without hematuria; R79.89 Other specified abnormal findings of blood chemistry; G47.33 Obstructive sleep apnea (adult) (pediatric); N39.0 Urinary tract infection, site not specified; J43.9 Emphysema, unspecified; E11.42 Type 2 diabetes mellitus with diabetic polyneuropathy; Z79.4 Long term (current) use of insulin; E11.22 Type 2 diabetes mellitus with diabetic chronic kidney disease; I50.31 Acute diastolic (congestive) heart failure; N18.30 Chronic kidney disease, stage 3 unspecified; M19.041 Primary osteoarthritis, right hand; E78.5 Hyperlipidemia, unspecified; K21.9 Gastro-esophageal reflux disease without esophagitis; I73.9 Peripheral vascular disease, unspecified; I49.5 Sick sinus syndrome; Z51.81 Encounter for therapeutic drug level monitoring; Z79.899 Other long term (current) drug therapy; N17.0 Acute kidney failure with tubular necrosis; Z95.5 Presence of coronary angioplasty implant and graft; N81.10 Cystocele, unspecified; R33.9 Retention of urine, unspecified; R09.02 Hypoxemia
CPT/HCPCS: 12345; 36415; 36416; 36573; 36592; 36600; 51701; 51702; 51798; 71045; 71275; 74177; 80048; 80051; 80053; 81001; 82330; 82805; 82962; 83036; 83605; 83690; 83735; 83880; 84100; 84145; 84443; 84484; 85025; 85378; 85730; 86140; 87040; 87077; 87086; 87186; 87486; 87581; 87633; 93005; 93010; 93306; 93454; 94640; 96365; 96372; 96375; 99152; 99153; 99285; C1751; C1769; C1887; C1894; CATH; G0378; J0696; J1265; J1644; J1650; J1815; J2250; J2405; J3010; J3490; J7030; J7040; Q9967

== ENCOUNTER → 2023-10-24 10:54 | Outpatient (BNVA) | payer MEDICARE, SELFPAY | PROVIDERS: PCP Family Medicine Adult Medicine; Visit Provider Family Medicine Adult Medicine | DX: I11.0 Hypertensive heart disease with heart failure (principal); I50.31 Acute diastolic (congestive) heart failure; R80.9 Proteinuria, unspecified | CPT/HCPCS: 80048 ==

== ENCOUNTER 2023-11-01 08:25 | Outpatient (RCR) | payer MEDICARE, SELFPAY | END 2023-11-29 23:59 | disposition home or self-care (01) | LOC: CR 08:25 | PROVIDERS: PCP Family Medicine Adult Medicine; Referring Provider Family Medicine Adult Medicine; Visit Provider Family Medicine Adult Medicine | DX: I50.9 Heart failure, unspecified (principal) | CPT/HCPCS: 93798 ==

== ENCOUNTER 2023-11-08 20:46 | Emergency (ER) | payer MEDICARE, SELFPAY ==
[2023-11-08 20:48] VITALS: BP 141/61; PULSE 76; RESP 22; TEMP 36.5; O2SAT 96
--- NOTE | 2023-11-08 20:51 | XRR_ITS ---
PROCEDURE INFORMATION: Exam: XR Chest Exam date and time: 11/08/2023 9:44 PM Age: 58 years old Clinical indication: Other: Syncope TECHNIQUE: Imaging protocol: Radiologic exam of the chest. Views: 1 view. COMPARISON: CR XR chest 1V portable [id number] 08/22/2023 12:43 PM FINDINGS: Tubes, catheters and devices: Left-sided AICD device with [address]. Lungs: Increased interstitial markings with peribronchial cuffing in the lung bases are nonspecific but can be seen the setting of bronchitis, pulmonary vascular congestion, viral infection and small-vessel airways disease. Pleural spaces: Unremarkable. No pleural effusion. No pneumothorax. Heart/Mediastinum: Unremarkable. No cardiomegaly. Bones/joints: Unremarkable. XR/XR chest 1V portable [id number] IMPRESSION: 1. Increased interstitial markings with peribronchial cuffing in the lung bases are nonspecific but can be seen the setting of bronchitis, pulmonary vascular congestion, viral infection and small-vessel airways disease. 2. Left-sided AICD device with [address]
--- NOTE | 2023-11-08 20:53 | ECG_ITS ---
[facility] Test Date: 2023-11-08 Pat Name: Radha Henry Department: Room: Gender: Female Thread Singer: : 1965 Requested By: Remi Metcalf Order Number: [id number] Go MD: Shmuel Gill M.D. Measurements Intervals [place] Rate: 72 P: -14 MT: 162 QRS: -20 QRSD: 121 T: -7 QT: 403 QTc: 444 Interpretive Statements ELECTRONIC ATRIAL PACEMAKER LEFT VENTRICULAR HYPERTROPHY AND ST-T CHANGE [VOLTAGE CRITERIA PLUS ST/T ABNORMALITY] POSSIBLE LATERAL MYOCARDIAL INFARCTION , OF INDETERMINATE AGE [30 ms Q WAVE IN I/aVL/V5/V6] Compared to ECG 08/22/2023 15:25:36 Left ventricular hypertrophy now present Myocardial infarct finding now present Sinus rhythm no longer present Incomplete right bundle-branch block no longer present Possible ischemia no longer present ST (T wave) deviation still present Electronically Signed On 11-09-2023 9:28:44 DIGITAL X RAY SERVICE ENGINEER by Shmuel Gill M.D. [id number]
[2023-11-08 21:19] LABS: Troponin(5th) Baseline 90 ng/L (0-10)
--- NOTE | 2023-11-08 21:21 | W.ED.SYNCOPE ---
HPI - Syncope General: Chief Complaint: Syncope Stated Complaint: Syncope/ Dizziness Time Seen by Provider: 11/08/23 20:48 History of Present Illness: Patient presents to the ER by EMS with complaints of lightheaded weakness dizziness and possible syncope. She states this happens when she stands up or changes position. She says this is have been happening ever since October but has been happening more frequently and more severe here recently. When the patient had an episode of this today she was sitting still she felt weird and she checked her blood pressure and it was 90 systolic before she passed out. Patient has seen a contact agent about this she was diagnosed with orthostatic hypotension and placed on midodrine. Patient is still currently on metoprolol also. 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 Review of Systems General: Reports: 10 or more systems reviewed and unremarkable except in HPI and below PFSH ED PFSH: Medical History Orthostatic hypotension Constipation Urinary incontinence Prolapse, uterovaginal KYLE on CPAP COPD (chronic obstructive pulmonary disease) with emphysema Congestive heart failure [facility] 10/13 - 10/20/2023 acute CHF, Ortho hypotension Community acquired pneumonia Osteoarthritis (arthritis due to wear and tear of joints) Combined pulmonary fibrosis and emphysema (CPFE) Obesity (BMI 35.0-39.9 without comorbidity) Hypertension with 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 Irvin H/O tubal ligation Hx of cholecystectomy Hx of heart artery stent Family History Mother Diabetes Heart disease Denies family history of Colon cancer Ovarian cancer Thyroid cancer CAD (coronary artery disease) Clotting disorder Dementia Hyperlipidemia Psychiatric illness Chronic kidney disease (CKD) Breast cancer Suicide Anesthesia complication Bleeding disorder Family history of premature coronary artery disease Lung disease Cancer Hypertension Uterine cancer Stroke Social History Smoking and tobacco/nicotine status: former use of tobacco/nicotine Quit status (tobacco/nicotine): has quit using Year quit tobacco: 9 years ago Alcohol intake: never Substance/Drug Use: never Physical Exam Const: COMMON NORMALS: no acute distress, average body habitus, patient oriented x3, no limitations, healthy appearing, alert and well nourished HENMT: COMMON NORMALS: normocephalic, atraumatic, hearing grossly normal bilaterally, external ears normal, Normal external nose present, moist oral mucous membranes and oropharynx normal HEAD & SCALP: normocephalic and atraumatic NOSE: Normal external nose present EXTERNAL EAR: Yes external ears normal Eye: COMMON NORMALS: Equal, round and reactive pupils present, EOMs intact bilaterally, conjunctivae normal and no scleral icterus CONJUNCTIVA: Yes conjunctivae normal PUPIL: Yes Equal, round and reactive pupils present Neck/C-Spine: COMMON NORMALS: no JVD Chest: COMMONS NORMALS: normal inspection of the chest and normal palpation of entire chest wall Resp: COMMON NORMALS: normal respiratory effort, No retractions, No use of accessory muscles and clear to auscultation bilaterally AUSCULTATION: clear to auscultation bilaterally Cardio: COMMON NORMALS: no JVD, regular rate, regular rhythm, S1 normal heart sound present, S2 normal heart sound present, No gallops present (Cardio), No clicks present (Cardio), No murmurs present (Cardio) and No rub (Cardio) RATE: regular rate RHYTHM: regular rhythm HEART SOUNDS: S1 normal heart sound present and S2 normal heart sound present GI: COMMON NORMALS: Normal to inspection, nondistended, normoactive bowel sounds present, Soft to palpation, non-tender, No hepatosplenomegaly present and no masses PALPATION: Yes Soft to palpation and Yes No hepatosplenomegaly present Neuro: COMMON NORMALS: patient oriented x3 SENSORIUM/ORIENTATION: Yes alert Course Vital Signs: Vital signs: Vital Signs Temperature 97.7 F 11/08/23 20:48 Pulse Rate 74 11/08/23 23:44 Respiratory Rate 20 H 11/08/23 22:34 Blood Pressure 143/86 11/08/23 23:44 Pulse Oximetry 94 11/08/23 23:44 Oxygen Delivery Me thod Room Air 11/08/23 22:34 MDM - Syncope Medical Decision Making Patient was worked up with serial EKGs, serial troponins, lab work, urinalysis, chest x-ray, [employer] pacemaker interpretation. These showed patient was anemic with a hemoglobin of 8.5 hematocrit 26.9, elevated BUN 51 and 1.8 creatinine, chest x-ray showed nonspecific findings of parabronchial cuffing otherwise negative initial troponin was 90 then repeat 2-hour troponin was 85 for delta of 4, urinalysis was contaminated. Orthostatic vital signs were obtained which showed patient dropped approximately 15 mmHg and only abdiel 4 bpm between lying and standing. Will have the patient hold her metoprolol and continue on her midodrine and follow-up with her practice physician or contact agent within 7 days. Differential Diagnosis Likely syncope due to orthostatic hypotension; Unlikely vasovagal syncope, complete atrioventricular block, subarachnoid hemorrhage, pulmonary embolism or dehydration Medical Records I reviewed the patient's medical records. Lab Data I reviewed the patient's lab results. 11/08/23 20:25 11/08/23 20:25 Radiology Impressions Chest X-Ray 11/08/23 20:51 IMPRESSION: 1. Increased interstitial markings with peribronchial cuffing in the lung bases are nonspecific but can be seen the setting of bronchitis, pulmonary vascular congestion, viral infection and small-vessel airways disease. 2. Left-sided AICD device with [address] Laboratory Results WBC 6.38 10^3/uL (3.29-11.43) 11/08/23 20:25 RBC 3.08 10^6/uL (3.85-5.65) L 11/08/23 20:25 Hgb 8.50 g/dL (11.27-16.99) L 11/08/23 20: Hct 26.9 % (36-47) L 11/08/23 20:25 MCV 87.3 fl (85-98) 11/08/23 20: MCH 27.6 pg (27-33) 11/08/23 20: MCHC 31.6 g/dL (30-55) 11/08/23 20: RDW 15.0 % (12.1-15.1) 11/08/23 20: Plt Count 116 10^3/cmm (157-399) L 11/08/23 20: MPV 12.7 fL (7.4-10.4) H 11/08/23 20:25 Neut % (Auto) 54.4 % 11/08/23 20:25 Lymph % (Auto) 35.0 % 11/08/23 20:25 Lee % (Auto) 6.6 % 11/08/23 20:25 Eos % (Auto) 2.7 % 11/08/23 20:25 Baso % (Auto) 0.8 % 11/08/23 20: Neut # (Auto) 3.48 10^3/uL (1.8-7.7) 11/08/23 20:25 Lymph # (Auto) 2.2 10^3/uL (0.8-4.8) 11/08/23 20: Lee # (Auto) 0.4 10^3/uL (0.2-0.9) 11/08/23 20:25 Eos # (Auto) 0.2 10^3/uL (0.0-0.8) 11/08/23 20:25 Baso # (Auto) 0.1 10^3/uL (0.0-0.1) 11/08/23 20: Nucleated RBC % (auto) 0 % 11/08/23: Nucleated RBCs # 0.0 /100WBC 11/08/23 20: PT 18.70 SECONDS (12.1-14.9) H 11/08/23 20:25 INR 1.50 (0.8-1.2) H 11/08/23 20:25 Sodium 133 mmol/L (136-145) L 11/08/23 20:25 Potassium 4.9 mmol/L (3.5-5.1) 11/08/23 20:25 Chloride 99 mmol/L (98-107) 11/08/23 20:25 Carbon Dioxide 20 mmol/L (22-29) L 11/08/23 20:25 Anion Gap 18.9 (5-19) 11/08/23 20:25 BUN 51 mg/dL (6-20) H 11/08/23 20:25 Creatinine 1.8 mg/dL (0.5-0.9) H 11/08/23 20:25 GFR Calculation 28.9 mL/min (90-130) L 11/08/23 20:25 Glucose 165 mg/dL (65-115) H 11/08/23 20:25 Calculated Osmolality 293 mOsm/kg (285-295) 11/08/23 20:25 Calcium 8.6 mg/dL (8.5-10.5) 11/08/23 20:25 Magnesium 1.8 mg/dL (1.7-2.3) 11/08/23 20:25 Total Bilirubin 0.3 mg/dL (0.15-1.2) 11/08/23 20:25 AST 31 U/L (0-32) 11/08/23 20:25 ALT 55 U/L (0-33) H 11/08/23 20:25 Alkaline Phosphatase 103 U/L (35-105) 11/08/23 20:25 Troponin T Baseline 90 ng/L (0-10) H 11/08/23 20:25 Troponin T 120 Minute 85.28 ng/L (0-10) H 11/08/23 22:10 Delta Troponin T -4.72 ABS# (0-10) L 11/08/23 22:10 Total Protein 7.0 g/dL (6.6-8.7) 11/08/23 20:25 Albumin 3.5 g/dL (3.5-5.2) 11/08/23 20:25 Globulin 3.5 g/dL (1.3-4.6) 11/08/23 20:25 TSH 3.03 uIU/mL (0.27-4.20) 11/08/23 20:25 Urine Color Light yellow (Yellow) 11/08/23 22: Urine Appearance Hazy (CLEAR) A 11/08/23 22: Urine pH 5 (5-7) 11/08/23 22:33 Ur Specific [place] 1.020 (1.005-1.030) 11/08/23 22:33 Urine Protein 2+ (Negative) H 11/08/23 22:33 Urine Glucose (UA) Norm (Normal) 11/08/23 22: Urine Ketones Negative (Negative) 11/08/23 22: Urine Blood 2+ (Negative) H 11/08/23 22:33 Urine Nitrate Negative (Negative) 11/08/23 22: Urine Bilirubin Neg (Negative) 11/08/23 22: Urine Urobilinogen Neg mg/dL (Negative) 11/08/23 22:33 Ur Leukocyte Esterase 2+ (Negative) H 11/08/23 22:33 Urine RBC 0-4 /hpf (0-2) H 11/08/23 22:33 Urine WBC 10-15 /hpf (0-5) H 11/08/23 22:33 Ur Squamous Epith Cells 15-25 /hpf (0-5) H 11/08/23 22:33 Amorphous Sediment Not Reportable 11/08/23 22:33 Urine Bacteria 2+ /hpf (NONE) H 11/08/23 22:33 XR interpretation done by ED provider, pending radiology final review EKG Data EKG 1: I personally reviewed and interpreted this EKG as follows: EKG interpretation date: 11/08/23 EKG interpretation time: 20:53 Prior EKG tracings: available for review Interpretation: Ventricular rate 72 bpm, VT interval 160, QRS duration 121, QTc of 428, electronic atrial pacemaker, EKG 2: I personally reviewed and interpreted this EKG as follows: EKG interpretation date: 11/08/23 EKG interpretation time: 23:21 Prior EKG tracings: available for review Interpretation: Ventricular rate 69 bpm, VT interval 156, QRS duration 100, QTc of 431, sinus rhythm, Discharge Plan Discharge Patient Disposition: Home Clinical Impression: Orthostatic hypotension, Syncope due to orthostatic hypotension Condition: Stable Prescriptions: Discontinued metoprolol succinate 25 mg tablet extended release 24 hr 25 mg PO DAILY No Action acetaminophen [Tylenol] 325 mg tablet 650 mg PO Q6H PRN alum-mag hydroxide-simeth 200-200-20 mg/5 mL suspension 30 ml PO QID PRN Rx Instructions: administer between meals and at bedtime guaifenesin 100 mg/5 mL liquid 200 mg PO Q4H PRN insulin lispro [Humalog KwikPen Insulin] 100 unit/mL insulin pen See Rx Instructions SUBCUT TID Rx Instructions: Less than or equal to 180=0 units, 181-200=add 2 units magnesium hydroxide [Dulcolax (magnesium hydroxide)] 400 mg/5 mL suspension 30 ml PO DAILY PRN Saccharomyces boulardii 250 mg capsule 250 mg PO BID apixaban 5 mg tablet 5 mg PO BID Qty: 60 5RF glucagon HCl 1 mg/mL recon soln 1 mg SUBCUT Q20M PRN (Reason: hypoglycemia) Qty: 10 3RF Rx Instructions: until target blood sugar attained insulin lispro [Humalog KwikPen Insulin] 100 unit/mL insulin pen 4 unit SUBCUT TID Qty: 15 5RF linezolid 600 mg tablet 600 mg PO BID ([facility]) Diabetic Shoes with 3 pairs of inserts See Rx Instructions .ROUTE .MEDSUPPLY Qty: 1 0RF Rx Instructions: As directed by [employer] ([facility]) cpap mask and tubing See Rx Instructions .Route .MEDSUPPLY Qty: 1 0RF Rx Instructions: FOR HOME, sutosubstitue formulary equivalent ([facility]) glucometer See Rx Instructions .Route .MEDSULY Qty: 1 0RF Rx Instructions: glucometer kit, check bs three times daily 100 strips 100 lancets ([facility]) Diabetic shoes with 3 inserts See Rx Instructions .Route .MEDSUPPLY Qty: 1 0RF Rx Instructions: As directed HOME ([facility]) Diabetic Shoes See Rx Instructions .Route .MEDSUPPLY Qty: 1 0RF Rx Instructions: As directed HOME ([facility]) Custom Molded Accommodative Orthotics See Rx Instructions .Route .MEDSUPPLY Qty: 1 0RF Rx Instructions: As directed [employer] [place] ([facility]) pen needle, diabetic [BD Ultra-Fine Mini Pen Needle] 31 gauge x 3/16 needle See Rx Instructions .Route Qty: 100 12RF Rx Instructions: As directed albuterol sulfate [ProAir HFA] 90 mcg/actuation HFA aerosol inhaler 1 inh INHALATION QID PRN (Reason: Shortness Of Breath) Qty: 6.7 0RF ([facility]) blood-glucose meter [Accu-Chek Guide Glucose Meter] Misc See Rx Instructions .Route Qty: 1 0RF Rx Instructions: As directed ([facility]) Accu-Chek Guide test strips Strip See Rx Instructions .Route Qty: 100 11RF Rx Instructions: As directed ([facility]) lancets [Accu-Chek Softclix Lancets] Misc See Rx Instructions .Route Qty: 100 11RF Rx Instructions: As directed ([facility]) Accu-Chek Guide L1-L2 Ctrl Krista Solution See Rx Instructions .Route Qty: 1 0RF Rx Instructions: As directed Spiriva Respimat 2.5 mcg/actuation mist 2 puff inhalation DAILY Qty: 4 5RF midodrine 5 mg tablet 5 mg PO TID PRN (Reason: for low blood pressure) Qty: 90 0RF Rx Instructions: do not give last dose of day after 6PM or within 4 hrs of bedtime cetirizine 10 mg tablet 10 mg PO BEDTIME atorvastatin 10 mg tablet 10 mg PO BEDTIME aspirin 81 mg tablet,delayed release (DR/EC) 81 mg PO BEDTIME pantoprazole 20 mg tablet,delayed release (DR/EC) 20 mg PO BEDTIME Discharge Orders: Discharge ED (Routine); Ordered 11/08/23 Ordered By: Remi Metcalf Referrals: Cameron Frost MD [Primary Care Provider] - 1 week Patient Instructions: Hypotension (ED), Syncope in Older Adults (ED) Activity Restrictions/Additional Instructions: Please hold your metoprolol as this may be lowering your blood pressure too much or heart rate at times and increasing your risk of passing out. Please continue your midodrine as this might help your blood pressure and avoid these incidents. Please follow-up with your family practice physician and/or contact agent within the next 7 days for further evaluation and treatment. Coding Level of Care Code ED Dry Curer for Alisha Middleton
[2023-11-08 21:30] VITALS: BP 131/81; BP 132/76; BP 143/75; PULSE 75; PULSE 76; PULSE 79
[2023-11-08 21:30] LABS: Alanine Aminotransferase 55 U/L (0-33); Albumin Level 3.5 g/dL (3.5-5.2); Alkaline Phosphatase 103 U/L (35-105); Anion Gap 18.9 (5-19); Aspartate Amino Transferase 31 U/L (0-32); Blood Urea Nitrogen 51 mg/dL (6-20); Calcium 8.6 mg/dL (8.5-10.5); Carbon Dioxide 20 mmol/L (22-29); Chloride 99 mmol/L (98-107); Globulin 3.5 g/dL (1.3-4.6); Glomerular Filtration Rate 28.9 mL/min (90-130); Glucose 165 mg/dL (65-115); Magnesium 1.8 mg/dL (1.7-2.3); Osmolality Calculated 293 mOsm/kg (285-295); Potassium 4.9 mmol/L (3.5-5.1); Sodium 133 mmol/L (136-145); Thyroid Stimulating Hormone 3.03 uIU/mL (0.27-4.20); Total Bilirubin 0.3 mg/dL (0.15-1.2)
[2023-11-08 22:31] LABS: Troponin 5 2HR 85.28 ng/L (0-10)
[2023-11-08 22:32] LABS: Troponin 5 2HR Delta -4.72 ABS# (0-10)
[2023-11-08 22:34] VITALS: BP 149/89; PULSE 70; RESP 20; O2SAT 94
[2023-11-08 22:38] LABS: Basophils # 0.1 10^3/uL (0.0-0.1); Basophils % 0.8 %; Eosinophils # 0.2 10^3/uL (0.0-0.8); Eosinophils % 2.7 %; Hematocrit 26.9 % (36-47); Lymphocytes # 2.2 10^3/uL (0.8-4.8); Mean Corpuscular HGB Conc 31.6 g/dL (30-55); Mean Corpuscular Hemoglobin 27.6 pg (27-33); Mean Corpuscular Volume 87.3 fl (85-98); Mean Platelet Volume 12.7 fL (7.4-10.4); Monocytes # 0.4 10^3/uL (0.2-0.9); Monocytes % 6.6 %; Neutrophils # 3.48 10^3/uL (1.8-7.7); Neutrophils % 54.4 %; Nucleated Red Blood Cells % 0 %; Platelet Count 116 10^3/cmm (157-399); Red Blood Count 3.08 10^6/uL (3.85-5.65); White Blood Count 6.38 10^3/uL (3.29-11.43)
[2023-11-08 22:50] LABS: Add Urine Microscopic? YES; Bilirubin Urine Neg (Negative); Blood Urine 2+ (Negative); Glucose Urine UA Norm (Normal); Ketones Urine Negative (Negative); Leukocyte Esterase Urine 2+ (Negative); Nitrate Urine Negative (Negative); Protein Urine 2+ (Negative); Urine Appearance Hazy (CLEAR); Urine Color Light yellow (Yellow); Urobilinogen Urine Neg (Negative); pH Urine 5 (5-7)
[2023-11-08 22:51] LABS: Add Urine Culture? No; Bacteria Urine 2+ /hpf; RBC Urine 0-4 /hpf (0-2); Squamous Epithelial Cell Urine 15-25 /hpf (0-5)
--- NOTE | 2023-11-08 22:51 | ECG_ITS ---
[facility] Test Date: 2023-11-08 Pat Name: Radha Henry Department: Room: Gender: Female Telephone Directory Distributor Driver: : 1965 Requested By: Remi Metcalf Order Number: [id number] Go MD: Shmuel Gill M.D. Measurements Intervals [place] Rate: 69 P: 10 NC: 156 QRS: -20 QRSD: 100 T: 260 QT: 412 QTc: 444 Interpretive Statements SINUS RHYTHM LEFT VENTRICULAR HYPERTROPHY AND ST-T CHANGE [VOLTAGE CRITERIA PLUS ST/T ABNORMALITY] Compared to ECG 11/08/2023 20:53:27 Atrial-paced complex(es) or rhythm no longer present Myocardial infarct finding no longer present ST (T wave) deviation still present Electronically Signed On 11-09-2023 9:30:43 ELECTRIC TRAIN DRIVER by Shmuel Gill M.D. [id number]
[2023-11-08 23:44] VITALS: BP 143/86; PULSE 74; O2SAT 94
== END 2023-11-08 23:45 | disposition home or self-care (01) ==
PROVIDERS: Emergency Provider Emergency Medicine; PCP Family Medicine Adult Medicine
DX: I95.1 Orthostatic hypotension (principal); Z79.82 Long term (current) use of aspirin; Z79.4 Long term (current) use of insulin
CPT/HCPCS: 36415; 71045; 80048; 80053; 81001; 83735; 84443; 84484; 85025; 85610; 93005; 99285

== ENCOUNTER 2023-11-16 16:46 | Emergency (ER) | payer MEDICARE, SELFPAY ==
--- NOTE | 2023-11-16 16:51 | XRR_ITS ---
PROCEDURE INFORMATION: Exam: XR Chest Exam date and time: 11/16/2023 5:25 PM Age: 58 years old Clinical indication: Chest wall pain; Additional info: Cp TECHNIQUE: Imaging protocol: Radiologic exam of the chest. Views: 1 view. COMPARISON: CR (CHEST, ) 11/08/2023 9:44 PM FINDINGS: Lungs: Prominent bilateral interstitial opacities suggestive of pulmonary fibrosis. There are focal airspace opacities in the left lung base concerning for pneumonia. Additional opacities are noted in the right lung base. Pleural spaces: No evidence of pneumothorax. No evidence of pleural effusion. Heart/Mediastinum: Left subclavian approach dual-chamber pacemaker. Cardiomediastinal silhouette is within normal limits. Bones/joints: No evidence of acute osseous abnormality. XR/XR chest 1V portable [id number] IMPRESSION: 1. Left basilar airspace opacities concerning for pneumonia on a background of pulmonary fibrosis.
--- NOTE | 2023-11-16 16:53 | ECG_ITS ---
[facility] Test Date: 2023-11-16 Pat Name: Radha Henry Department: Room: Gender: Female Manager Adobe: : 1965 Requested By: Kimmie Sahu Order Number: [id number] oG MD: Shmuel Gill M.D. Measurements Intervals [place] Rate: 73 P: 22 CO: 153 QRS: -17 QRSD: 110 T: 185 QT: 403 QTc: 445 Interpretive Statements SINUS RHYTHM POSSIBLE ANTERIOR MYOCARDIAL INFARCTION , OF INDETERMINATE AGE [30 ms Q WAVE IN V3/V4, OR R < 0.2 mV IN V4] MODERATE T-WAVE ABNORMALITY, CONSIDER LATERAL ISCHEMIA [-0.1+ mV T-WAVE IN I/aVL/V5/V6] MODERATE T-WAVE ABNORMALITY, CONSIDER INFERIOR ISCHEMIA [-0.1+ mV T-WAVE IN II/aVF] Compared to ECG 11/08/2023 23:21:01 Myocardial infarct finding now present ST (T wave) deviation no longer present Electronically Signed On 11-16-2023 23:45:17 DIRECTOR TRANSLATIONAL by Shmuel Gill M.D. [id number]
[2023-11-16 16:59] VITALS: BP 180/91; PULSE 73; RESP 17; TEMP 37; O2SAT 90; BMI 33.5
--- NOTE | 2023-11-16 18:25 | W.ED.SEIZURE ---
HPI - Seizure General: Chief Complaint: Seizure Stated Complaint: dizzy, chest pains Time Seen by Provider: 11/16/23 17:09 History of Present Illness: HPI Narrative: 58-year-old female presents emergency department stating she is having episodes where she is feeling like she is blacking out. Her son who is accompanying her states that he feels like she had a seizure earlier today. He states that the patient complains of losing her vision feels like she is unable to see become short of breath and weak and then starts feeling like she is gasping for air. She denies chest pain. The son who is accompanying her today does describe what appears to be seizure-like activity. The patient states that she has had an extensive cardiac history and recently had a pacemaker placed and had a blood infection after having the pacer placed at [facility]. She states she has seen her field artillery fire control man and advised him of her concerns and she feels like he is just regarding her concerns. She is here requesting evaluation for potential seizures and referral for cardiology. Seizure History: No Place: Home Review of Systems General: Reports: 10 or more systems reviewed and unremarkable except in HPI and below PFSH ED PFSH: Medical History Orthostatic hypotension Constipation Urinary incontinence Prolapse, uterovaginal KYLE on CPAP COPD (chronic obstructive pulmonary disease) with emphysema Congestive heart failure [facility] 10/13 - 10/20/2023 acute CHF, Ortho hypotension Community acquired pneumonia Osteoarthritis (arthritis due to wear and tear of joints) Combined pulmonary fibrosis and emphysema (CPFE) Obesity (BMI 35.0-39.9 without comorbidity) Hypertension with 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 Irvin H/O tubal ligation Hx of cholecystectomy Hx of heart artery stent Family History Mother Diabetes Heart disease Denies family history of Colon cancer Ovarian cancer Thyroid cancer CAD (coronary artery disease) Clotting disorder Dementia Hyperlipidemia Psychiatric illness Chronic kidney disease (CKD) Breast cancer Suicide Anesthesia complication Bleeding disorder Family history of premature coronary artery disease Lung disease Cancer Hypertension Uterine cancer Stroke Social History Smoking and tobacco/nicotine status: former use of tobacco/nicotine Quit status (tobacco/nicotine): has quit using Year quit tobacco: 9 years ago Alcohol intake: never Substance/Drug Use: never Physical Exam Narrative: EXAM NARRATIVE: Constitutional: the patient appears well nourished and with normal development. Vital signs reviewed as documented. HENMT: Normocephalic, atraumatic. External ears normal appearance without drainage. Nose without drainage, normal appearance. Mucus membranes moist. Neck is supple, No jugular venous distension, trachea is midline, no appreciable carotid bruits. No lymphadenopathy. No meningeal signs. Flexion, extension and lateral rotation is without pain. Eyes: Pupils are equal, round, reactive to light and accommodation. No scleral icterus. Extra-ocular movement are intact. Thorax is symmetrical and with equal rise and fall with respirations. Resp: Lungs are clear to auscultation. No wheezes, rales, crackles or ronchi at present. Cardio: Regular rate and rhythm. Positive S1, S2. No appreciable murmurs, rubs or gallops. GI: Abdominal exam reveals normal bowel sounds to all quadrants. No organomegaly. No obvious palpable masses noted. No hepatomegally appreciated. Soft, non-tender to palpation. Extremity: Extremities are non-edematous and both femoral and pedal pulses are 2+ and equal bilaterally. Moves all extremities well, sensation in all extremities. Neuro: Alert and oriented x4, person, place, time and situation. Cranial nerves II through XII are grossly intact, there is no focal neurological deficits that I can appreciate at present. Motor strength in the upper and lower extremities are equal and bilateral 5/5. Psych: Cooperative, calm, normal thought process, appropriate judgment. Skin: No lesions, rashes. No gross abnormalities noted. Back: Symmetrical, no obvious deformity, No CVA tenderness Course Vital Signs: Vital signs: Vital Signs Temperature 98.6 F 11/16/23 16:59 Pulse Rate 70 11/16/23 22:12 Respiratory Rate 16 11/16/23 22:12 Blood Pressure 165/91 11/16/23 22:12 Pulse Oximetry 90 11/16/23 22:12 Oxygen Delivery Me thod Room Air 11/16/23 20:44 MDM - Seizure Lab Data 11/16/23 18:19 11/16/23 18:19 Labs: Radiology Impressions Chest X-Ray 11/16/23 16:51 IMPRESSION: 1. Left basilar airspace opacities concerning for pneumonia on a background of pulmonary fibrosis. Head CT 11/16/23 19:29 IMPRESSION: 1. No acute intracranial abnormality. If there is clinical concern for acute ischemia beyond the window for neuro intervention, consider correlation with MRI. Laboratory Results WBC 9.26 10^3/uL (3.29-11.43) 11/16/23 18:19 RBC 2.93 10^6/uL (3.85-5.65) L 11/16/23 18:19 Hgb 7.90 g/dL (11.27-16.99) L 11/16/23 18:19 Hct 25.5 % (36-47) L 11/16/23 18:19 MCV 87.0 fl (85-98) 11/16/23 18:19 MCH 27.0 pg (27-33) 11/16/23 18:19 MCHC 31.0 g/dL (30-55) 11/16/23 18:19 RDW 15.2 % (12.1-15.1) H 11/16/23 18:19 Plt Count 127 10^3/cmm (157-399) L 11/16/23 18:19 MPV 12.2 fL (7.4-10.4) H 11/16/23 18:19 Neut % (Auto) 62.8 % 11/16/23 18:19 Lymph % (Auto) 17.3 % 11/16/23 18:19 [place] % (Auto) 13.9 % 11/16/23 18:19 Eos % (Auto) 4.1 % 11/16/23 18:19 Baso % (Auto) 0.9 % 11/16/23 18:19 Neut # (Auto) 5.82 10^3/uL (1.8-7.7) 11/16/23 18:19 Lymph # (Auto) 1.6 10^3/uL (0.8-4.8) 11/16/23 18:19 [place] # (Auto) 1.3 10^3/uL (0.2-0.9) H 11/16/23 18:19 Eos # (Auto) 0.4 10^3/uL (0.0-0.8) 11/16/23 18:19 Baso # (Auto) 0.1 10^3/uL (0.0-0.1) 11/16/23 18:19 Nucleated RBC % (auto) 0.9 % 11/16/23 18:19 Nucleated RBCs # 0.1 /100WBC 11/16/23 18:19 ESR 26 mm/hr (0-15) H 11/16/23 18:19 PT 16.30 SECONDS (12.1-14.9) H 11/16/23 18:19 INR 1.26 (0.8-1.2) H 11/16/23 18:19 Sodium 135 mmol/L (136-145) L 11/16/23 18:19 Potassium 4.5 mmol/L (3.5-5.1) 11/16/23 18:19 Chloride 101 mmol/L (98-107) 11/16/23 18:19 Carbon Dioxide 24 mmol/L (22-29) 11/16/23 18:19 Anion Gap 14.5 (5-19) 11/16/23 18:19 BUN 24 mg/dL (6-20) H 11/16/23 18:19 Creatinine 1.3 mg/dL (0.5-0.9) H 11/16/23 18:19 GFR Calculation 42.1 mL/min (90-130) L 11/16/23 18:19 Glucose 206 mg/dL (65-115) H 11/16/23 18:19 Calculated Osmolality 290 mOsm/kg (285-295) 11/16/23 18:19 Calcium 8.3 mg/dL (8.5-10.5) L 11/16/23 18:19 Total Bilirubin 0.4 mg/dL (0.15-1.2) 11/16/23 18:19 AST 25 U/L (0-32) 11/16/23 18:19 ALT 21 U/L (0-33) 11/16/23 18:19 Alkaline Phosphatase 106 U/L (35-105) H 11/16/23 18:19 Troponin T Baseline 143 ng/L (0-10) H* 11/16/23 18:19 Troponin T 120 Minute 139.2 ng/L (0-10) H 11/16/23 20:03 Delta Troponin T -3.8 ABS# (0-10) L 11/16/23 20:03 C-Reactive Protein 12.9 mg/L (0.0-4.9) H 11/16/23 18:19 Total Protein 6.9 g/dL (6.6-8.7) 11/16/23 18:19 Albumin 3.5 g/dL (3.5-5.2) 11/16/23 18:19 Globulin 3.4 g/dL (1.3-4.6) 11/16/23 18:19 Prolactin 18.38 ng/mL (4.8-23.3) 11/16/23 18:19 All radiology interpretation(s) finalized by discharge Discharge Plan Discharge Patient Disposition: Home Clinical Impression: Functional neurologic complaint Pneumonia Qualifiers: Pneumonia type: due to unspecified organism Laterality: left Lung location: lower lobe of lung Qualified Code(s): J18.9 - Pneumonia, unspecified organism Condition: Stable Prescriptions: New Zithromax Z-Parvez 250 mg tablet See Rx Instructions PO .COMPLEX Qty: 6 0RF Rx Instructions: For 250 mg dose pack: take 500 mg today (day 1), then 250 mg for 4 days (days 2-5) No Action acetaminophen [Tylenol] 325 mg tablet 650 mg PO Q6H PRN alum-mag hydroxide-simeth 200-200-20 mg/5 mL suspension 30 ml PO QID PRN Rx Instructions: administer between meals and at bedtime guaifenesin 100 mg/5 mL liquid 200 mg PO Q4H PRN insulin lispro [Humalog KwikPen Insulin] 100 unit/mL insulin pen See Rx Instructions SUBCUT TID Rx Instructions: Less than or equal to 180=0 units, 181-200=add 2 units magnesium hydroxide [Dulcolax (magnesium hydroxide)] 400 mg/5 mL suspension 30 ml PO DAILY PRN Saccharomyces boulardii 250 mg capsule 250 mg PO BID glucagon HCl 1 mg/mL recon soln 1 mg SUBCUT Q20M PRN (Reason: hypoglycemia) Qty: 10 3RF Rx Instructions: until target blood sugar attained insulin lispro [Humalog KwikPen Insulin] 100 unit/mL insulin pen 4 unit SUBCUT TID Qty: 15 5RF linezolid 600 mg tablet 600 mg PO BID apixaban 2.5 mg tablet 2.5 mg PO BID Qty: 60 5RF ([facility]) Diabetic Shoes with 3 pairs of inserts See Rx Instructions .ROUTE .MEDSUPPLY Qty: 1 0RF Rx Instructions: As directed by [employer] ([facility]) cpap mask and tubing See Rx Instructions .Route .MEDSUPPLY Qty: 1 0RF Rx Instructions: FOR HOME, sutosubstitue formulary equivalent ([facility]) glucometer See Rx Instructions .Route .MEDSUPPLY Qty: 1 0RF Rx Instructions: glucometer kit, check bs three times daily 100 strips 100 lancets ([facility]) Diabetic shoes with 3 inserts See Rx Instructions .Route .MEDSUPPLY Qty: 1 0RF Rx Instructions: As directed HOME ([facility]) Diabetic Shoes See Rx Instructions .Route .MEDSUPPLY Qty: 1 0RF Rx Instructions: As directed HOME ([facility]) Custom Molded Accommodative Orthotics See Rx Instructions .Route .MEDSUPPLY Qty: 1 0RF Rx Instructions: As directed [employer] ([facility]) pen needle, diabetic [BD Ultra-Fine Mini Pen Needle] 31 gauge x 3/16 needle See Rx Instructions .Route Qty: 100 12RF Rx Instructions: As directed albuterol sulfate [ProAir HFA] 90 mcg/actuation HFA aerosol inhaler 1 inh INHALATION QID PRN (Reason: Shortness Of Breath) Qty: 6.7 0RF ([facility]) blood-glucose meter [Accu-Chek Guide Glucose Meter] Misc See Rx Instructions .Route Qty: 1 0RF Rx Instructions: As directed ([facility]) Accu-Chek Guide test strips Strip See Rx Instructions .Route Qty: 100 11RF Rx Instructions: As directed ([facility]) lancets [Accu-Chek Softclix Lancets] Misc See Rx Instructions .Route Qty: 100 11RF Rx Instructions: As directed ([facility]) Accu-Chek Guide L1-L2 Ctrl Krista Solution See Rx Instructions .Route Qty: 1 0RF Rx Instructions: As directed Spiriva Respimat 2.5 mcg/actuation mist 2 puff inhalation DAILY Qty: 4 5RF midodrine 5 mg tablet 5 mg PO TID PRN (Reason: for low blood pressure) Qty: 90 0RF Rx Instructions: do not give last dose of day after 6PM or within 4 hrs of bedtime cetirizine 10 mg tablet 10 mg PO BEDTIME atorvastatin 10 mg tablet 10 mg PO BEDTIME aspirin 81 mg tablet,delayed release (DR/EC) 81 mg PO BEDTIME pantoprazole 20 mg tablet,delayed release (DR/EC) 20 mg PO BEDTIME Discharge Orders: Discharge ED (Routine); Ordered 11/16/23 Ordered By: John Chinchilla Referrals: Onel Braga MD [Physician] - Cameron Frost MD [Primary Care Provider] - Graham Farooq MD [Physician] - Discharge Diet: Low Salt Discharge Activity: Resume usual activity Patient Instructions: Opioid Safety, Pain Management Activity Restrictions/Additional Instructions: Activity Restrictions/Additional Instructions: Thank you for choosing [facility] for your healthcare needs today. Please realize that you were seen in the Emergency Department and that we are providing you with an emergency medical screening exam and this may not be a complete and all inclusive of all the testing and or medical work-up that you may need to determine your ailment or severity of your illness. It is very important that you follow-up as instructed with your Primary care provider or Specialist for additional evaluation and to discuss your medical treatment plan. You may return to the Emergency Department should you have concerns or if your condition changes or worsens in any way. Coding Level of Care Code ED Director Commercial Sales for Alisha Middleton
[2023-11-16 18:29] LABS: Basophils # 0.1 10^3/uL (0.0-0.1); Basophils % 0.9 %; Eosinophils # 0.4 10^3/uL (0.0-0.8); Eosinophils % 4.1 %; Hematocrit 25.5 % (36-47); Lymphocytes # 1.6 10^3/uL (0.8-4.8); Lymphocytes % 17.3 %; Mean Platelet Volume 12.2 fL (7.4-10.4); Monocytes # 1.3 10^3/uL (0.2-0.9); Monocytes % 13.9 %; Neutrophils # 5.82 10^3/uL (1.8-7.7); Neutrophils % 62.8 %; Nucleated Red Blood Cells # 0.1 /100WBC; Nucleated Red Blood Cells % 0.9 %; Platelet Count 127 10^3/cmm (157-399); Red Blood Count 2.93 10^6/uL (3.85-5.65); Red Cell Distribution Width 15.2 % (12.1-15.1); White Blood Count 9.26 10^3/uL (3.29-11.43)
--- NOTE | 2023-11-16 18:34 | ECG_ITS ---
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 Measurements Intervals Kinsey Rate: 73 P: 22 IL: 140 QRS: -15 QRSD: 114 T: 242 QT: 375 QTc: 416 Interpretive Statements SINUS RHYTHM PROBABLE LATERAL MYOCARDIAL INFARCTION , OF INDETERMINATE AGE [35 ms Q WAVE IN I/aVL/V5/V6] MODERATE T-WAVE ABNORMALITY, CONSIDER INFERIOR ISCHEMIA [-0.1+ mV T-WAVE IN II/aVF] Compared to ECG 11/16/2023 16:53:55 No significant changes Electronically Signed On 11-16-2023 23:45:59 SEED EXPERT by Shmuel Gill M.D. [id number]
[2023-11-16 18:42] LABS: INR 1.26 (0.8-1.2)
[2023-11-16 18:49] LABS: Alanine Aminotransferase 21 U/L (0-33); Albumin Level 3.5 g/dL (3.5-5.2); Alkaline Phosphatase 106 U/L (35-105); Aspartate Amino Transferase 25 U/L (0-32); Blood Urea Nitrogen 24 mg/dL (6-20); Calcium 8.3 mg/dL (8.5-10.5); Carbon Dioxide 24 mmol/L (22-29); Chloride 101 mmol/L (98-107); Globulin 3.4 g/dL (1.3-4.6); Glomerular Filtration Rate 42.1 mL/min (90-130); Glucose 206 mg/dL (65-115); Osmolality Calculated 290 mOsm/kg (285-295); Sodium 135 mmol/L (136-145); Total Bilirubin 0.4 mg/dL (0.15-1.2); Total Protein 6.9 g/dL (6.6-8.7)
[2023-11-16 18:51] LABS: Anion Gap 14.5 (5-19); Potassium 4.5 mmol/L (3.5-5.1)
[2023-11-16 18:57] LABS: Troponin(5th) Baseline 143 ng/L (0-10)
--- NOTE | 2023-11-16 19:29 | CTR_ITS ---
PROCEDURE INFORMATION: Exam: CT Head Without Contrast Exam date and time: 11/16/2023 7:38 PM Age: 58 years old Clinical indication: Syncope and collapse; Additional info: Syncope/seizure-like activity TECHNIQUE: Imaging protocol: Computed tomography of the head without contrast. Radiation optimization: All CT scans at this facility use at least one of these dose optimization techniques: automated exposure control; mA and/or kV adjustment per patient size (includes targeted exams where dose is matched to clinical indication); or iterative reconstruction. COMPARISON: CT head wo con* [id number] 03/08/2021 10:12 AM RADIATION DOSE METRICS: Total DLP (mGy-cm): 1091 FINDINGS: Brain: Sequela of mild chronic microvascular ischemic changes. Chronic left wang radiata and basal ganglia lacunar infarcts. Aguilar-white differentiation is otherwise maintained. No evidence of intra-axial or extra-axial hemorrhage. No mass effect or midline shift. Basilar cisterns are patent. Cerebral ventricles: No hydrocephalus. Paranasal sinuses: The visualized paranasal sinuses are well aerated. Mastoid air cells: The visualized mastoids and middle ears are clear. Bones/joints: The visualized calvarium and bony orbits are intact. Soft tissues: No gross soft tissue abnormality. CT/CT head wo con* [id number] IMPRESSION: 1. No acute intracranial abnormality. If there is clinical concern for acute ischemia beyond the window for neuro intervention, consider correlation with MRI.
[2023-11-16 19:30] VITALS: BP 122/104; PULSE 72; RESP 18; O2SAT 100
[2023-11-16 19:46] LABS: Erythrocyte Sedimentation Rate 26 mm/hr (0-15)
[2023-11-16 20:07] LABS: C Reactive Protein 12.9 mg/L (0.0-4.9); Prolactin 18.38 ng/mL (4.8-23.3)
[2023-11-16 20:38] LABS: Troponin 5 2HR Delta -3.8 ABS# (0-10)
[2023-11-16 20:39] LABS: Troponin 5 2HR 139.2 ng/L (0-10)
--- NOTE | 2023-11-16 20:40 | PC.NURSE ---
2 hr trop 139.2
[2023-11-16 20:44] VITALS: BP 125/55; PULSE 86; RESP 30; O2SAT 90
--- NOTE | 2023-11-16 20:44 | PC.NURSE ---
walked pt to bathroom, upon returning pt tachypneic and o2 dropped to 86% ra
--- NOTE | 2023-11-16 21:09 | PC.NURSE ---
report given to mauricio shane
[2023-11-16 21:23] VITALS: BP 177/76; PULSE 70; RESP 16; O2SAT 93
[2023-11-16 22:12] VITALS: BP 165/91; PULSE 70; RESP 16; O2SAT 90
[2023-11-16] MEDS: azithromycin 250 mg Tablet 500 MG PO (22:14)
== END 2023-11-16 22:18 | disposition home or self-care (01) ==
PROVIDERS: Emergency Medicine; Emergency Provider Internal Medicine; PCP Family Medicine Adult Medicine
DX: J44.0 Chronic obstructive pulmonary disease with (acute) lower respiratory infection (principal); J18.9 Pneumonia, unspecified organism; R29.90 Unspecified symptoms and signs involving the nervous system; Z79.82 Long term (current) use of aspirin; Z79.4 Long term (current) use of insulin; Z87.891 Personal history of nicotine dependence; I11.0 Hypertensive heart disease with heart failure; I50.9 Heart failure, unspecified; E11.42 Type 2 diabetes mellitus with diabetic polyneuropathy; E78.5 Hyperlipidemia, unspecified
CPT/HCPCS: 36415; 70450; 71045; 80053; 84146; 84484; 85025; 85610; 85651; 86140; 93005; 99285; Q0144